=== PATIENT | female | born 1975 | race African-American/Black ===

== ENCOUNTER 2019-08-14 12:24 | Outpatient (CLI) | payer BC, SELFPAY ==
--- NOTE | ~2019-08-14 | MMUS_ITS ---
EXAMINATION: MM diagnostic christal BI w casimiro, US breast BI limited HISTORY: Bilateral nipple discharge TECHNIQUE: Craniocaudal, mediolateral, and mediolateral oblique 3-D tomosynthesis images of the breas ts were performed and synthetic 2-D images were generated. CAD analysis was submitted and interpreted . High resolution limited bilateral breast ultrasound was performed. COMPARISON: 08/19/2014, 08/03/2014 BREAST PARENCHYMAL COMPOSITION: There are scattered areas of fibroglandular density. FINDINGS: MAMMOGRAPHIC FINDINGS: A stable left breast mass has undergone interval biopsy. There is no evidence of suspicious mass, nisreen cification, or architectural distortion in either breast to suggest malignancy. No mammographic maryjo elate is identified for the reported nipple discharge. There has been no suspicious interval change. Scattered benign-appearing calcifications are present. ULTRASOUND: Targeted ultrasound of the subareolar breasts was performed. No sonographic correlate is identified f or the reported nipple discharge. IMPRESSION: 1. No specific mammographic or sonographic correlate is identified for the reported nipple discharge. Further evaluation at this time should be based on clinical assessment. Continued follow-up physical examination is recommended. Consider surgical evaluation. 2. Recommend routine screening mammography in one year. BI-RADS Category 2: Benign finding(s). Reviewed, dictated and finalized at location A. IMPRESSION: 1. No specific mammographic or sonographic correlate is identified for the repo rted nipple discharge. Further evaluation at this time should be based on clini nisreen assessment. Continued follow-up physical examination is recommended. Consid er surgical evaluation. 2. Recommend routine screening mammography in one year. BI-RADS Category 2: Benign finding(s).
--- NOTE | ~2019-08-14 | US_ITS ---
EXAMINATION: US pelvic complete w TV DATE: 08/14/2019 15:52 INDICATION: Irregular menses. Comparison:No prior studies for comparison. TECHNIQUE: Multiple transabdominal and endovaginal sonographic images of the pelvis performed. FINDINGS: The uterus measures 10.5 x 5.1 x 5.1 cm. There is a 4.1 x 4 x 3.3 cm uterine fibroid. The e ndometrial complex measures 7 mm. The ovaries are not visualized. There is no free fluid in the pelvis. There are no abnormal masses seen on either side. IMPRESSION: 1. Enlarged fibroid uterus. Otherwise, unremarkable pelvic ultrasound. Ovaries not visualized. Reviewed, dictated and finalized at location A.
== END 2019-08-14 12:25 | disposition home or self-care (01) ==
PROVIDERS: PCP Internal Medicine; Visit Provider Student in an Organized Health Care Education/Training Program
DX: N64.52 Nipple discharge (principal); N92.1 Excessive and frequent menstruation with irregular cycle; D25.9 Leiomyoma of uterus, unspecified
CPT/HCPCS: 76642; 76830; 76856; 77062; 77066; G0279

== ENCOUNTER 2019-11-06 09:31 | Outpatient (CLI) | payer BC, SELFPAY ==
[2019-11-06 09:55] LABS: Basophils Percent Auto 0.5 % (0.2-1.2); Eosinophils Absolute Auto 0.1 K/mm3 (0-0.3); Eosinophils Percent Auto 1.9 % (0-4.4); Hematocrit 27.7 % (37.0-47.0); Hemoglobin 7.9 g/dL (12.0-15.0); Immature Granulocyte Absolute 0.03 K/mm3 (0.00-0.031); Immature Granulocyte Percent A 0.4 % (0-0.5); Lymphocytes Absolute Auto 2.76 K/mm3 (0.9-3.2); Mean Corpuscular HGB Conc 28.5 g/dl (32-36); Mean Corpuscular Hemoglobin 19.4 pg (26-34); Mean Corpuscular Volume 67.9 fl (80-100); Mean Platelet Volume 9.1 fl (7.4-10.4); Monocytes Absolute Auto 0.6 K/mm3 (0.1-0.6); Monocytes Percent Auto 8.4 % (2.6-8.5); Neutrophils Absolute Auto 3.9 K/mm3 (1.3-6.7); Neutrophils Percent Auto 51.8 % (45.5-73.1); Platelet Count Result 372 k/mm3 (150-375); Red Blood Count 4.08 M/mm3 (4.2-5.4); Red Cell Distribution Width 19.7 % (11.5-14.5); White Blood Count 7.5 K/mm3 (4.5-10.0)
[2019-11-06 10:14] LABS: Anion Gap 6 mmol/L (8-16); Blood Urea Nitrogen 13 mg/dL (7-17); Calcium 10.4 mg/dL (8.4-10.2); Carbon Dioxide 26 mmol/L (22-30); Chloride 105 mmol/L (98-107); Cholesterol 142 mg/dL (0-200); Estimated Glomerular Filt Rate > 60; Glucose 104 mg/dL (65-105); HDL Direct 26 mg/dL; Phosphorus 2.2 mg/dL (2.5-4.5); Potassium 4.2 mmol/L (3.4-5.0); Sodium 137 mmol/L (137-145); Triglycerides 82 mg/dL (<150)
[2019-11-06 10:32] LABS: LDL Cholesterol Direct 96 mg/dL
[2019-11-06 10:38] LABS: Free T4 Free Thyroxine 1.25 ng/mL (0.78-2.19); Vitamin D 25 Hydroxy 16.1 ng/mL
[2019-11-06 10:45] LABS: Thyroid Stimulating Hormone < 0.015 uIU/mL (0.465-4.680)
[2019-11-06 10:46] LABS: Total Triiodothyronine (T3) 2.87 NG/ML (0.97-1.69)
== END 2019-11-06 09:32 | disposition home or self-care (01) ==
PROVIDERS: Internal Medicine Endocrinology, Diabetes & Metabolism; PCP Internal Medicine; Visit Provider Nurse Practitioner
DX: E03.9 Hypothyroidism, unspecified (principal); M81.0 Age-related osteoporosis without current pathological fracture; D64.9 Anemia, unspecified; Z13.220 Encounter for screening for lipoid disorders
CPT/HCPCS: 36415; 80048; 80061; 82306; 83970; 84100; 84436; 84439; 84443; 84480; 85025

== ENCOUNTER 2019-11-11 00:31 | Outpatient (CLI) | payer BC, SELFPAY ==
[2019-11-11 18:19] LABS: SARS-CoV-2 RNA PCR Negative
== END 2019-11-11 00:32 | disposition home or self-care (01) ==
LOC: ANHCOVIDDT 00:31
PROVIDERS: PCP Internal Medicine; Visit Provider Student in an Organized Health Care Education/Training Program
DX: Z01.812 Encounter for preprocedural laboratory examination (principal); Z20.828 Contact with and (suspected) exposure to other viral communicable diseases
CPT/HCPCS: 87635; C9803; U0003

== ENCOUNTER 2019-11-13 01:03 | Day surgery (SDC) | payer BC, SELFPAY ==
[2019-11-02 11:20] VITALS: BMI 54.1
--- NOTE | 2019-11-12 11:37 | WPDANESEPPF ---
Anes - Initial Pre Proc Eval Procedure: Operation Date: 11/13/19 08:30 Proposed Procedures p Hysteroscopy Dilation and Curettage With Possible Myosure - Sophy Up MD Date/Time: 11/12/19 11:37 Surgeon: Sophy Up MD Pre Op Diagnosis: metrorrhagia and endometrial polyp Patient Data Age: 44 Gender: F Height: 1.63 m Weight: 142.88 kg Allergies Allergy/AdvReac Type Severity Reaction Status Date / Time Sulfa (Sulfonamide Allergy Intermediate Rash Verified 11/13/19 06:55 Antibiotics) Home Medications Medication Instructions Recorded Confirmed Type varenicline 0.5 mg (11)-1 mg (42) See Rx Instructions PO PER PKG DIR 10/23/19 11/02/19 Rx tablets in a dose pack #53 each varenicline 1 mg tablet 1 mg PO BID #56 tablet 10/23/19 11/02/19 Rx levothyroxine 150 mcg tablet 150 mcg PO DAILY 30 Days #30 tablet 10/28/19 11/13/19 Rx multivitamin 1 tablet PO DAILY 11/02/19 11/13/19 History Patient hx anesthesia problems: none Family hx anesthesia problems: none PMFSH Past Medical History Medical History (Updated 11/12/19 @ 15:56 by JYO Abbasi-C) Anemia Anxiety Asthma Depression Hidradenitis Hip pain History of HPV (human papilloma virus) infection Hypertriglyceridemia Hypothyroidism Migraines Obesity Osteoporosis TIA (transient ischemic attack) no deficits, 10/11/2019 Surgical History Surgical History H/O section X2 2006, 2009 H/O tubal ligation History of incision and drainage Carbuncle from left armpit 2006 History of right hip replacement 2004 [place] teeth removed Family History Family History Mother , not cause of Blood clot in vein Heart attack Lung cancer Hypertension COPD (chronic obstructive pulmonary disease) Depression Bipolar 1 disorder Grandparent , cause of Colon cancer Malignant neoplasm of prostate Grandparent Heart attack Hypertension Son Family history of attention deficit hyperactivity disorder (ADHD) PTSD (post-traumatic stress disorder) Asthma Daughter Asthma Social History Social History (Updated 11/12/19 @ 15:03 by Debbie Villalobos [facility]) Years smoked: 20 Smoking status: Current every day smoker Tobacco type: cigarettes Second hand tobacco smoke exposure: No Alcohol intake: current Drinks per week: 2 Substance use: former Substance use type: marijuana Other substance usage details: recreational Last use: 05/2019 Gender identity (if verbalized by the patient): Female Spiritual care concerns: No Anes - Eval Final PreProcedure Day of Procedure 11/12/19 11:37 Patient weight: super morbidly obese Heart: regular rate and rhythm Lungs: clear to auscultation and normal air movement Airway: Mallampati scale class II Neurological: alert and oriented Last oral intake: >/= 8 hours ASA classification: III Emergent: no Anesthetic plan: proceed Anesthesia type and monitoring: general GIVS and standard monitoring Informed Consent: The patient's anesthetic plan and its attendant risks and benefits were discussed with the patient/family/POA. Questions were solicited and answers provided to the satisfaction of the patient/family/POA.
--- NOTE | 2019-11-12 12:22 | PM.IMHP ---
H&P: HPI History of Present Illness Date/Time: 11/12/19 12:22 Chief complaint: metrorrhagia and endometrial polyp Narrative: Yolie Wylie is a 44 year old female with history of AUB since 06/2019. Patient reports previous history of regular menses every 28 days. Last normal menstrual period was in June of 2019, beginning around July 08 or . Patient reported persistent irregular spotting since then. EMB was performed in the office on 09/10/19 and showed fragments of benign polyp. Discussion had with patient regarding pathology results and decision was made to proceed with a hysteroscopy/D&C as next step in evaluation and management. Pt is also anemic with Hgb 7.9, which may be partially attributed to irregular bleeding. Patient reports feeling well today without complaints. Review of Systems Review of Systems: All systems reviewed & are unremarkable except as noted in HPI and below Constitutional: Constitutional: Reports as per HPI, Reports no additional constitutional complaints, Denies chills, Denies fever(s), Denies headache(s) and Denies night sweats Eyes: Eyes: Reports as per HPI and Reports no additional eye complaints ENT: Reports system reviewed and no additional complaints, except as documented, Reports as per HPI, Reports Normal hearing present and Denies headache(s) Cardiovascular: Cardiovascular: Reports as per HPI, Reports no additional cardiovascular complaints, Denies chest pain and Denies dyspnea Respiratory: Respiratory: Reports as per HPI, Reports no additional respiratory complaints, Denies cough and Denies dyspnea Gastrointestinal: Gastrointestinal: Reports as per HPI, Reports no additional gastrointestinal complaints, Denies abdominal pain, Denies change in bowel habits, Denies change in stool character, Denies nausea and Denies vomiting Genitourinary: Genitourinary: Reports no additional female genitourinary complaints, Reports as per HPI, Denies abnormal vaginal bleeding, Denies genital lesions, Denies hot flashes, Denies dyspareunia, Denies pelvic pain, Denies sexual dysfunction, Denies urinary incontinence, Denies vaginal discharge, Denies vaginal dryness and Denies vaginal odor Musculoskeletal: Musculoskeletal: Reports no additional musculoskeletal complaints and Reports as per HPI Integumentary/Breasts: Skin/Breast: Reports system reviewed and no additional complaints, except as docu, Reports as per HPI, Denies breast pain and Denies nipple discharge Neurologic: Reports system reviewed and no additional complaints, except as documented, Reports as per HPI, Reports Normal hearing present and Denies headache(s) Psychiatric: Psychiatric: Reports no additional psychiatric complaints, Reports as per HPI, Denies anxiety and Denies depression Endocrine: Endocrine: Reports no additional endocrine complaints and Reports as per HPI Hematologic/Lymphatic: Hematologic/Lymphatic: Reports no additional hematologic/lymphatic complaints and Reports as per HPI Allergic/Immunologic: Allergic/Immunologic: Reports no additional allergic/immunologic complaints and Reports as per HPI [facility] Past Medical History Medical History (Updated 11/12/19 @ 15:56 by Rosa Galvez, [employer]) Anemia Anxiety Asthma Depression Hidradenitis Hip pain History of HPV (human papilloma virus) infection Hypertriglyceridemia Hypothyroidism Migraines Obesity Osteoporosis TIA (transient ischemic attack) no deficits, 10/11/2019 Surgical History Surgical History H/O section X2 2006, 2009 H/O tubal ligation History of incision and drainage Carbuncle from left armpit 2005 History of right hip replacement 2004 [place] teeth removed Family History Family History Mother , not cause of Blood clot in vein Heart attack Lung cancer Hypertension COPD (chronic obstructive pulmonary disease)
--- NOTE | 2019-11-13 07:23 | WPDHPUPDATE1 ---
History and Physical Update Update Date/Time: 11/13/19 07:23 History and Physical has been reviewed, including an updated exam of the patient. There are NO changes in the patient's condition. Risks, benefits, and alternatives have been discussed and questions answered. Patient agrees to proceed with procedure.
[2019-11-13] MEDS: ACETAMINOPHEN 500 MG TABLET 1000 MG PO (07:26)
[2019-11-13] MEDS: LACTATED RINGERS 1,000 ML 30 ML IV CONT (07:47)
[2019-11-13 07:48] VITALS: BP 126/75; PULSE 93; RESP 18; TEMP 36.5; O2SAT 100
--- NOTE | 2019-11-13 09:12 | SUR.OPER ---
3350ml ns in, 3150ml ns out. aware
[2019-11-13 09:25] VITALS: BP 123/63; PULSE 82; RESP 16; O2SAT 93
--- NOTE | 2019-11-13 09:28 | P.OP_ITS ---
Procedure Note - Detailed Date of procedure: 11/13/19 Pre-op diagnosis: metrorrhagia and endometrial polyp Post-op diagnosis: same Procedure performed: Hysteroscopy, dilation and curettage, hysteroscopic myomectomy with MyoSure Description of procedure: The patient was taken to the operating room where she self-transferred to the operating room table. Patient was placed in the dorsal supine position. Anesthesia was administered and found to be adequate. The patient was repositioned in the dorsal lithotomy position with the use of Jeff stirrups. She was prepped and draped in the usual sterile fashion. A red rubber catheter was used to drain the bladder of 200 cc of yellow urine. A bivalve speculum was inserted into the vagina. The cervix was visualized and the anterior lip of the cervix was grasped with a single-tooth tenaculum. A paracervical block with 1% plain lidocaine was performed. 5 cc of lidocaine was administered on either side. The cervix was serially dilated to accommodate a hysteroscope. The hysteroscope was advanced into the endometrial cavity and a general survey was performed. In general, the endometrial cavity grossly appeared normal, however, a submucosal fibroid was visualized along the left po sterior wall of the endometrium. Bilateral tubal ostia were visualized. A few pictures were taken. Decision was made to convert to an operative hysteroscopy with the use of MyoSure to excise the myoma. The regular hysteroscope was replaced with the operative hysteroscope and introduced into the endometrial cavity. The MyoSure device was advanced through the operative hysteroscope. This device was used to excise the majority the myoma. After the majority of the myoma was evacuated, the MyoSure device was removed from the endometrial cavity and the procedure was deemed complete. The hysteroscope was also removed. A rigid size curette was then introduced into the endometrial cavity. All four quadrants of the uterus were explored and a minimal amount of tissue was obtained. All specimen were prepared to be sent to pathology for analysis. The tenaculum was removed. A moderate amount of oozing was noted from the tenaculum puncture sites. The sites were made hemostatic with use of silver nitrate and Monsel's solution. Excellent hemostasis was noted. The vagina was cleansed and dried. The speculum was removed. The remainder of the patient was also cleansed and dried. She was taken out of the dorsal lithotomy position and awakened from anesthesia without difficulty. She was transferred to the recovery room in stable condition. All sponge, lap, instrument counts were correct in the procedure. Anesthesia: MAC Surgeon: Sophy Up MD Estimated blood loss (mL): 10 IV fluids (mL): 900 Urine output (mL): 200 Drains: No Packing: No Pathology: yes (endometrial shavings, endometrial curettings) Complications: No immediate complications Condition: stable Disposition: PACU Findings: Intraoperative findings: submucosal fibroid visualized along the left posterior wall of the endometrial cavity, rest of cavity appeared grossly normal, bilateral tubal ostia visualized Hysteroscopic fluids: 3350cc in/3150cc out
[2019-11-13 09:55] VITALS: BP 138/67; PULSE 79; RESP 16
[2019-11-13 10:25] VITALS: BP 123/67; PULSE 80; RESP 16
[2019-11-13 10:50] VITALS: BP 131/80; PULSE 73; RESP 16
== END 2019-11-13 11:00 | disposition home or self-care (01) ==
PROVIDERS: PCP Internal Medicine; Visit Provider Student in an Organized Health Care Education/Training Program
PROC: 0U5B8ZZ Destruction of Endometrium, Via Natural or Artificial Opening Endoscopic (ICD-10-PCS; CPT 58563; principal; 2019-11-13 08:30)
DX: D25.0 Submucous leiomyoma of uterus (principal); E03.9 Hypothyroidism, unspecified; E66.01 Morbid (severe) obesity due to excess calories; Z68.43 Body mass index [BMI] 50.0-59.9, adult; Z86.73 Personal history of transient ischemic attack (TIA), and cerebral infarction without residual deficits; F17.210 Nicotine dependence, cigarettes, uncomplicated
CPT/HCPCS: 58561; 36415; 86850; 86900; 86901; 88305; A9270; J2250; J2704; J3010; J7120

== ENCOUNTER → 2019-12-08 15:08 | Outpatient (CLI) | payer BC, SELFPAY ==
--- NOTE | ~2019-12-08 | XR_ITS ---
EXAMINATION: XR hip RT min 2V DATE: 12/08/2019 15:30 INDICATION: Right hip pain TECHNIQUE: Two views of right hip were obtained. COMPARISON: None. FINDINGS: Orthopedic hardware is present in the right acetabulum stabilizing a healed fracture. There is advanced osteoarthritis of the right hip. No acute fracture is identified. The soft tissues are u nremarkable. IMPRESSION: 1. Advanced right hip osteoarthritis. 2. Healed right acetabular fracture with internal fixation. Reviewed, dictated and finalized at location A.
== END ==
PROVIDERS: PCP Internal Medicine; Visit Provider Clinical Nurse Specialist
DX: M16.11 Unilateral primary osteoarthritis, right hip (principal)
CPT/HCPCS: 73502

== ENCOUNTER 2020-05-06 14:37 | Outpatient (CLI) | payer BC, SELFPAY ==
--- NOTE | ~2020-05-06 | US_ITS ---
EXAMINATION: US pelvic complete w TV EXAM DATE: 05/06/2020 15:45 INDICATION: Z30.431 - Encounter for routine checking of intrauterine contraceptive device. TECHNIQUE: Pelvic transabdominal and transvaginal sonogram was performed. There are multiple graysca le and Doppler images available for interpretation. Comparison is made to prior examination from 08/12. FINDINGS: Uterus measures 11.5 x 5.1 x 6.6 cm, with IUD identified in the lower uterine segment and cervical canal. Previously suspected fibroid is not well-visualized on this exam. Endometrial stripe measures 20 mm, mildly thickened. There is no free pelvic fluid. Right adnexa: The ovary is not identified. There is no adnexal mass. Left adnexa: The left ovary is normal in size and morphology. IMPRESSION: 1. Abnormally positioned IUD, in the lower uterine segment and cervical canal. 2. Endometrial thickening. Consider 6 week follow-up pelvic sonogram. Reviewed, dictated and finalized at location A. [facility]
== END 2020-05-06 14:38 | disposition home or self-care (01) ==
PROVIDERS: PCP Internal Medicine; Visit Provider Obstetrics & Gynecology
DX: Z30.431 Encounter for routine checking of intrauterine contraceptive device (principal); N92.0 Excessive and frequent menstruation with regular cycle; T83.89XA Other specified complication of genitourinary prosthetic devices, implants and grafts, initial encounter
CPT/HCPCS: 76830; 76856

== ENCOUNTER → 2020-05-24 02:42 | Outpatient (CLI) | payer BC, SELFPAY ==
[2020-05-24 22:47] LABS: SARS-CoV-2 RNA PCR Negative
== END ==
PROVIDERS: PCP Internal Medicine; Visit Provider Student in an Organized Health Care Education/Training Program
DX: Z01.812 Encounter for preprocedural laboratory examination (principal); Z20.822 Contact with and (suspected) exposure to COVID-19
CPT/HCPCS: C9803; U0003; U0005

== ENCOUNTER 2020-05-27 00:55 | Day surgery (SDC) | payer BC, SELFPAY ==
[2020-05-19 15:40] VITALS: BMI 53.3
--- NOTE | 2020-05-26 15:32 | WPDANESEPPF ---
Anes - Initial Pre Proc Eval Procedure: Operation Date: 05/27/20 10:00 Proposed Procedures p Hysteroscopy Dilation and Curettage Zoie Ablation, Possible Myosure, Intrauterine Device Removal - Sophy Up MD Date/Time: 05/26/20 15:32 Surgeon: Sophy Up MD Pre Op Diagnosis: Abd uterine Bleeding, misplaced IUD Patient Data Age: 44 Gender: F Height: 1.63 m Weight: 141 kg Allergies Allergy/AdvReac Type Severity Reaction Status Date / Time Sulfa (Sulfonamide Allergy Intermediate Hives Verified 05/27/20 08:26 Antibiotics) Home Medications Medication Instructions Recorded Confirmed Type multivitamin 1 tablet PO DAILY 11/02/19 05/27/20 History levothyroxine 150 mcg tablet 150 mcg PO DAILY 90 Days #90 tablet 02/25/20 05/27/20 Rx sertraline 100 mg tablet 100 mg PO DAILY #90 tablet 04/11/20 05/27/20 Rx Patient hx anesthesia problems: none Family hx anesthesia problems: none PMFSH Past Medical History Medical History Anemia Anxiety Asthma Depression Hidradenitis Hip pain History of HPV (human papilloma virus) infection Hypertriglyceridemia Hypothyroidism Migraines Morbid obesity with BMI of 50.0-59.9, adult Obesity Osteoporosis Smoker Surgical History Surgical History H/O section X2 2006, 2009 H/O dilation and curettage H/O tubal ligation History of incision and drainage Carbuncle from left armpit 2006 History of right hip replacement 2003 [place] teeth removed Family History Family History Mother , not cause of Blood clot in vein Heart attack Lung cancer Hypertension COPD (chronic obstructive pulmonary disease) Depression Bipolar 1 disorder Grandparent , cause of Colon cancer Malignant neoplasm of prostate Grandparent Heart attack Hypertension Son Family history of attention deficit hyperactivity disorder (ADHD) PTSD (post-traumatic stress disorder) Asthma Daughter Asthma Social History Social History Years smoked: 20 Smoking status: Current every day smoker Tobacco type: cigarettes Second hand tobacco smoke exposure: No Alcohol intake: current Drinks per week: 1 Substance use: current Substance use type: marijuana Other substance usage details: recreational Gender identity (if verbalized by the patient): Female Spiritual care concerns: No Anes - Eval Final PreProcedure Day of Procedure 05/26/20 15:32 Patient weight: obese Heart: regular rate and rhythm Lungs: clear to auscultation and normal air movement Airway: Mallampati scale class II Neurological: alert and oriented Last oral intake: >/= 8 hours ASA classification: III Emergent: no Anesthetic plan: proceed Anesthesia type and monitoring: general LMA and ETT Informed Consent: The patient's anesthetic plan and its attendant risks and benefits were discussed with the patient/family/POA. Questions were solicited and answers provided to the satisfaction of the patient/family/POA.
--- NOTE | 2020-05-26 17:03 | PM.IMHP ---
H&P: HPI History of Present Illness Date/Time: 05/26/20 17:03 Patient initially presented to gynecology office in 01/2019 with complaints of irregular menses. A pelvic ultrasound was obtained showing a slightly enlarged uterus measuring 10.5 x 5.1 x 5.1 cm and an EMB was performed showing an endometrial polyp and chronic endometritis. Based on persistent AUB and symptoms, a hysteroscopy/D&C was performed with the hopes of alleviating symptoms. Patient's menstrual cycles following the procedure were initially manager fire, however, progressively became heavy again and patient experienced persistent bleeding, almost daily. Patient has significant co-morbidities and was referred to [facility] in 02/2020 for possible hysterectomy. Patient was not deemed to be an optimal surgical candidate at [facility] and an IUD trial was recommended. Patient had a Mirena IUD inserted in 03/2020. Since IUD insertion, reported persistent heavy bleeding, although it has since slowed down. An ultrasound was performed to confirm proper placement of the IUD and showed the IUD improperly located in lower uterine segment and cervical canal. Due to mobility issues as well as body habitus, patient experiences significant discomfort with in-office speculum exams and decision was made proceed with removal of IUD and perform an endometrial ablation in the OR. In general, patient reports feeling well today without complaints. Chief Complaint: Abnormal uterine bleeding Malpositioned IUD Review of Systems Review of Systems: All systems reviewed & are unremarkable except as noted in HPI and below Constitutional: Constitutional: Reports as per HPI, Reports no additional constitutional complaints, Denies chills, Denies fever(s), Denies headache(s) and Denies night sweats Eyes: Eyes: Reports as per HPI and Reports no additional eye complaints ENT: Reports system reviewed and no additional complaints, except as documented, Reports as per HPI, Reports Normal hearing present and Denies headache(s) Cardiovascular: Cardiovascular: Reports as per HPI, Reports no additional cardiovascular complaints, Denies chest pain and Denies dyspnea Respiratory: Respiratory: Reports as per HPI, Reports no additional respiratory complaints, Denies cough and Denies dyspnea Gastrointestinal: Gastrointestinal: Reports as per HPI, Reports no additional gastrointestinal complaints, Denies abdominal pain, Denies change in bowel habits, Denies change in stool character, Denies nausea and Denies vomiting Genitourinary: Genitourinary: Reports no additional female genitourinary complaints, Reports as per HPI, Reports abnormal vaginal bleeding, Denies genital lesions, Denies hot flashes, Denies dyspareunia, Denies pelvic pain, Denies sexual dysfunction, Denies urinary incontinence, Denies vaginal discharge, Denies vaginal dryness and Denies vaginal odor Musculoskeletal: Musculoskeletal: Reports no additional musculoskeletal complaints and Reports as per HPI Integumentary/Breasts: Skin/Breast: Reports system reviewed and no additional complaints, except as docu, Reports as per HPI, Denies breast pain and Denies nipple discharge Neurologic: Reports system reviewed and no additional complaints, except as documented, Reports as per HPI, Reports Normal hearing present and Denies headache(s) Psychiatric: Psychiatric: Reports no additional psychiatric complaints, Reports as per HPI, Denies anxiety and Denies depression Endocrine: Endocrine: Reports no additional endocrine complaints and Reports as per HPI Hematologic/Lymphatic: Hematologic/Lymphatic: Reports no additional hematologic/lymphatic complaints and Reports as per HPI Allergic/Immunologic: Allergic/Immunologic: Reports no additional allergic/immunologic complaints and Reports as per HPI PMFSH Past Medical History Medical History Anemia Anxiety Asthma Depression Hidradenitis Hip pain History of HPV (human papilloma virus) infection Hypertriglyceridemia Hypothyroidism Mi
[2020-05-27] VITALS (17 sets, daily range): BP systolic 115–150; BP diastolic 53–92; PULSE 64–86; RESP 12–21; TEMP 36.2–36.4; O2SAT 96–100
[2020-05-27] MEDS: LACTATED RINGERS 1,000 ML 30 ML IV CONT ×3 (08:37→16:15)
[2020-05-27] MEDS: ACETAMINOPHEN 500 MG TABLET 1000 MG PO (08:39)
--- NOTE | 2020-05-27 09:19 | WPDHPUPDATE1 ---
History and Physical Update Update Date/Time: 05/27/20 09:19 History and Physical has been reviewed, including an updated exam of the patient. There are NO changes in the patient's condition. Risks, benefits, and alternatives have been discussed and questions answered. Patient agrees to proceed with procedure.
--- NOTE | 2020-05-27 11:11 | PM.PROC ---
Procedure Note - Detailed Date of procedure: 05/27/20 Pre-op diagnosis: Abd uterine Bleeding, misplaced IUD Post-op diagnosis: same Procedure performed: Removal of IUD, hysteroscopy, dilation and curettage, myomectomy with MyoSure, endometrial ablation with Zoie Description of procedure: The patient was taken to the operating room where she self transferred to the operating room table. Patient was placed in dorsal supine position. Anesthesia was administered and found to be adequate. Patient was repositioned in dorsal lithotomy position with the use of Jeff stirrups. She was prepped and draped in the usual sterile fashion. A red rubber catheter was used to drain the bladder of 125 cc of urine. A bivalve speculum was inserted in the vagina. The cervix was well visualized. A small portion of the stem of the IUD was visualized protruding through the cervical os. The IUD strings were grasped with ring forceps and the IUD was easily removed intact. The IUD was discarded. The anterior lip of the cervix was grasped with a single-tooth tenaculum. A paracervical block was performed with 1% plain lidocaine. 5 cc of lidocaine was administered on both sides for a total of 10 cc. The cervix was serially dilated to accommodate a hysteroscope. The hysteroscope was advanced into the endometrial cavity. A general survey was performed. A few small endometrial polyps were visualized along both the left and right sides of the endometrial cavity. At the fundus, a large submucosal fibroid was noted with the majority of the myoma within the endometrial cavity. The right tubal ostia was visualized. The left tubal ostia was not seen. The hysteroscope was removed. A medium-size rigid curette was introduced and all quadrants of the endometrial cavity were explored. A scant amount of tissue was obtained along with the polyps that were visualized. The tissue was prepared to be sent to pathology. The myoma was unable to be dislodged with the curette. An attempt was made to grasp the myoma with forceps, however, due to the large size, was unsuccessful. The hysteroscope was reintroduced into the endometrial cavity. With the large myoma still visualized, decision was made to convert to an operative hysteroscope. The operative hysteroscope was advanced into the endometrial cavity. The MyoSure device was advanced through the operative hysteroscope and activated. The MyoSure device was used to evacuate as much of the myoma as possible. Due to technical difficulties, which included the MyoSure device and the console spontaneously turning off for a total of three times during the procedure and requiring a restart, only approx. 60-70% of myoma was able to be excised and evacuated. The operative hysteroscope was removed. The Zoie endometrial ablation hand-held device was opened on the operative field. This device was connected to the console and the console was powered on. After proper settings were adjusted, the array was introduced into the endometrial cavity and deployed. The cervical balloon was insufflated. An integrity check was performed and successfully passed. The ablation procedure automatically began and ran for the preset time of 120 seconds. After the procedure was completed, the cervical balloon was desufflated and the array was collapsed and removed. The procedure was deemed complete. The tenaculum was removed from the anterior lip of the cervix. Pinpoint areas of bleeding from the tenaculum puncture sites were noted. These areas were made hemostatic with silver nitrate. Excellent hemostasis was noted. The vagina was cleansed and dried and the speculum was removed. The remainder of the patient was cleansed and dried. She was taken out of the dorsal lithotomy position and awakened from anesthesia without difficulty. She was transported to the recovery room in stable condition. All sponge, lap, and instrument counts were correct at the end of the procedure. The patient tolerated the procedur
[2020-05-27] MEDS: HYDROmorphone HCL INJ (*CRX) 1 MG/ML SYR 0.25 MG IV PUSH ×2 (11:24→11:29)
[2020-05-27] MEDS: fentaNYL CITRATE INJ (*CRX) 100 MCG/2 ML VIAL 25 MCG IV PUSH ×7 (11:32→13:00)
[2020-05-27] MEDS: diphenhydrAMINE HCl INJ 50 MG/ML VIAL 25 MG IV PUSH ×2 (12:48→15:45)
[2020-05-27] MEDS: oxyCODONE HCL (*CRX) 5 MG TAB IR PO (14:00)
--- NOTE | 2020-05-27 14:58 | SUR.PHASEII ---
1450; CALLED DR MARROQUIN. PT STILL C/O PELVIC PAIN 09/24. ABDOMEN SOFT, SM-MOD AMT VAG FLOW. TORADOL 30MG IV X1 DOSE ORDERED.
[2020-05-27] MEDS: KETOROLAC 30 MG/ML VIAL (*BKC) IV PUSH (15:07)
--- NOTE | 2020-05-27 15:28 | SUR.PHASEII ---
1525; PT AWAKE AND ALERT. DENIES NAUSEA. USING CELLPHONE. PT STATES SHE IS ITCHY AGAIN. ASKING FOR MORE BENADRYL. STATES PELVIC PAIN REMAINS 09/24. ABDOMEN SOFT, SM-MOD AMT VAG FLOW. CALLED DR ALBERT. BENADRYL 25MG IV ORDERED. (2ND DOSE)
--- NOTE | 2020-05-27 17:39 | SUR.PHASEII ---
1350; PT AWAKE AND ALERT. STATES PELVIC PAIN 7/10. ABDOMEN SOFT. SM-MOD AMT VAG FLOW, PINK/DARK RED. FLUID MIXED WITH BLOOD. 1400; PT GIVEN OXYCODONE FOR PAIN. PT SOMEWHAT ANXIOUS. SHAKING LEGS. 1450; PT STATES NO CHANGE IN PAIN. ASSESSMENT UNCHANGED. 1500; CALLED DR MARROQUIN, UPDATED ON WHAT PAIN MEDICATIONS PT HAS HAD DURING PACU/OP. STILL C/O PAIN 7/10. SHE ORDERED TORADOL 30MG IV X1 1530; PT C/O PAIN AT 7/10 AND UNCHANGED. PT REMAINS ANXIOUS, SHAKING LEGS. PT STATES ITCHING HAS RETURNED. PT USING CELL PHONE. 1540; CALLED DR ALBERT. DISCUSSED ITCHING AND CURRENT PAIN MEDS. BENADRYL 25 MG IV ORDERED. 1550; DR MARROQUIN HERE. IN ROOM SPEAKING TO PT. IV TYLENOL ORDERED. 1613; IV TYLENOL GIVEN OVER 15 MIN. PT STATES PAIN REMAINS 7/10. ASSESSMENT UNCHANGED. 1635; PT AWAKE AND ALERT. STATES PAIN MUCH BETTER NOW AT 4/10. NO LONGER ITCHING. PT USING CELL PHONE. PT CALM. PT STATES SHE IS READY TO GO HOME.
== END 2020-05-27 16:45 | disposition home or self-care (01) ==
PROVIDERS: PCP Internal Medicine; Visit Provider Student in an Organized Health Care Education/Training Program
PROC: 0U5B8ZZ Destruction of Endometrium, Via Natural or Artificial Opening Endoscopic (ICD-10-PCS; CPT 58563; principal; 2020-05-27 10:00)
DX: N93.9 Abnormal uterine and vaginal bleeding, unspecified (principal); D25.0 Submucous leiomyoma of uterus; N84.0 Polyp of corpus uteri; T83.32XA Displacement of intrauterine contraceptive device, initial encounter; Y84.8 Other medical procedures as the cause of abnormal reaction of the patient, or of later complication, without mention of misadventure at the time of the procedure; E03.9 Hypothyroidism, unspecified; F41.8 Other specified anxiety disorders; A63.0 Anogenital (venereal) warts; E66.01 Morbid (severe) obesity due to excess calories; Z68.42 Body mass index [BMI] 45.0-49.9, adult; F17.210 Nicotine dependence, cigarettes, uncomplicated; F12.90 Cannabis use, unspecified, uncomplicated
CPT/HCPCS: 58563; 58301; 58561; 88305; A9270; C9803; J0131; J1100; J1170; J1200; J1885; J2250; J2704; J3010; J7030; J7120; U0003; U0005

== ENCOUNTER 2020-09-21 10:44 | Emergency (ER) | payer BC, SELFPAY ==
[2020-09-21] VITALS (10 sets, daily range): BP systolic 123–138; BP diastolic 56–74; PULSE 71–84; RESP 16–22; O2SAT 98–100
--- NOTE | ~2020-09-21 | CT_ITS ---
EXAMINATION: CT abdomen pelvis w con DATE: 09/21/2020 13:57 INDICATION: Right lower quadrant abdominal pain. TECHNIQUE: Computed tomography (CT) of the abdomen and pelvis was performed with 100 mL Omnipaque 350 intravenous contrast. Automated exposure control and iterative reconstruction technique were employe d. The dose-length product was 1527.02 mGy-cm. COMPARISON: None. FINDINGS: The visualized portions of the lung bases demonstrate mild atelectasis. No pleural effusion . The heart size is normal. No pericardial effusion. The liver, gallbladder, spleen, pancreas, adrena l glands, and kidneys are normal. There are no dilated loops of bowel. The appendix is normal. There are no pathologically enlarged lymph nodes. There is no free intraperitoneal fluid. There is an old h ealed fracture of right acetabulum with fixation with plates and screws. One of the screws indents th e bladder. There is advanced right hip osteoarthritis. There is mild left hip osteoarthritis. There i s mild osteoarthritis of right sacroiliac joint and severe osteoarthritis of left sacroiliac joint. IMPRESSION: 1. Advanced posttraumatic right hip osteoarthritis. Reviewed, dictated and finalized at location A.
[2020-09-21 11:34] LABS: Basophils Absolute Auto 0.1 K/mm3 (0.0-0.1); Basophils Percent Auto 0.8 % (0.2-1.2); Hematocrit 31.5 % (37.0-47.0); Hemoglobin 9.2 g/dL (12.0-15.0); Immature Granulocyte Absolute 0.02 K/mm3 (0.00-0.031); Immature Granulocyte Percent A 0.3 % (0-0.5); Lymphocytes Absolute Auto 2.57 K/mm3 (0.9-3.2); Lymphocytes Percent Auto 36.3 % (18.3-44.2); Mean Corpuscular HGB Conc 29.2 g/dl (32-36); Mean Corpuscular Hemoglobin 22.3 pg (26-34); Mean Corpuscular Volume 76.3 fl (80-100); Mean Platelet Volume 9.3 fl (7.4-10.4); Monocytes Absolute Auto 0.7 K/mm3 (0.1-0.6); Neutrophils Absolute Auto 3.7 K/mm3 (1.3-6.7); Neutrophils Percent Auto 52.6 % (45.5-73.1); Platelet Count Result 273 k/mm3 (150-375); Red Blood Count 4.13 M/mm3 (4.2-5.4); Red Cell Distribution Width 20.1 % (11.5-14.5); White Blood Count 7.1 K/mm3 (4.5-10.0)
[2020-09-21 11:45] LABS: Alanine Aminotransferase 14 U/L (4-35); Albumin Level 4.2 g/dL (3.5-5.1); Alkaline Phosphatase 111 U/L (38-126); Anion Gap 8 mmol/L (8-16); Aspartate Amino Transferase 21 U/L (14-36); Bilirubin,Total 0.3 mg/dL (0.2-1.3); Blood Urea Nitrogen 11 mg/dL (7-17); Calcium 11.1 mg/dL (8.4-10.2); Carbon Dioxide 23 mmol/L (22-30); Chloride 105 mmol/L (98-107); Estimated CRCL calculation 125 ml/min; Estimated Glomerular Filt Rate > 60; Glucose 110 mg/dL (65-105); Potassium 4.4 mmol/L (3.4-5.0); Sodium 136 mmol/L (137-145)
[2020-09-21 11:57] LABS: Hypochromasia 1+ (NORMAL); Platelet Estimate Adequate (Adequate); Stomatocytes 1+ (NORMAL)
[2020-09-21 11:58] LABS: Anisocytosis 1+ (NORMAL)
[2020-09-21 12:02] LABS: Prothrombin Time 13.4 Seconds (11.1-14.7)
--- NOTE | 2020-09-21 13:21 | ED.ABDPAIN ---
HPI - Abdominal Pain General Chief Complaint: GI Bleed Stated Complaint: severe abd pain, GI bleed Time Seen by Provider: 09/21/20 12:23 History of Present Illness HPI narrative: Patient is a 45-year-old female who presents ER with abdominal pain rectal bleeding. Admitted last week at [facility] for rectal bleeding and was told she had a dilated appendix. She stayed overnight and they told her it was okay to go home. There is no surgery in regards to her appendix. She been doing well until today when she had a follow-up appointment with her PCP and had begun having rectal bleeding this morning. She reports that pain is recurred and is in the lower abdomen. No radiation. No aggravating or alleviating factors. Patient did has loose stools. Blood in her stool was streaky and red and it was not clots. Related Data Allergies Allergy/AdvReac Type Severity Reaction Status Date / Time Sulfa (Sulfonamide Allergy Intermediate Hives Verified 06/30/20 15:39 Antibiotics) Review of Systems Review of Systems: All systems reviewed & are unremarkable except as noted in HPI and below Constitutional: Constitutional: Denies chills, Denies fever(s) and Denies weakness ENT: Denies nasal congestion and Denies sore throat Gastrointestinal: Gastrointestinal: Reports abdominal pain, Reports diarrhea, Denies nausea and Denies vomiting Comments: Blood in stool Genitourinary: Genitourinary: Denies nocturia, Denies dysuria and Denies urinary incontinence [facility] Past Medical History Medical History Anemia Anxiety Asthma Depression Hidradenitis Hip pain History of HPV (human papilloma virus) infection Hypertriglyceridemia Hypothyroidism Migraines Morbid obesity with BMI of 50.0-59.9, adult Obesity Osteoporosis Smoker Surgical History Surgical History H/O section X2 2006, 2009 H/O dilation and curettage H/O tubal ligation History of incision and drainage Carbuncle from left armpit 2005 History of right hip replacement 2004 [place] teeth removed Family History Family History Mother , not cause of Blood clot in vein Heart attack Lung cancer Hypertension COPD (chronic obstructive pulmonary disease) Depression Bipolar 1 disorder Grandparent , cause of Colon cancer Malignant neoplasm of prostate Grandparent Heart attack Hypertension Son Family history of attention deficit hyperactivity disorder (ADHD) PTSD (post-traumatic stress disorder) Asthma Daughter Asthma Social History Social History (Updated 06/30/20 @ 15:39 by Maida Ramirez) Years smoked: 21 Smoking status: Current every day smoker Tobacco type: cigarettes Second hand tobacco smoke exposure: No Alcohol intake: current Drinks per week: 1 Alcohol use details: occasional Substance use: current Substance use type: marijuana Other substance usage details: recreational Gender identity (if verbalized by the patient): Female Spiritual care concerns: No Exam Narrative: Exam Narrative: GENERAL: Well-appearing, morbidly obese, and in no acute distress. HEAD: Normocephalic, atraumatic. ENT: Mucous membranes moist. CHEST: Clear to auscultation. No respiratory distress. HEART: Regular rate and rhythm. Normal peripheral pulses. ABDOMEN: Soft, nontender, nondistended. Normal-appearing rectum, no fissures or hemorrhoids. No gross blood on IMMANUEL. Heme-negative stool. EXTREMITIES: Normal range of motion. No edema. SKIN: Warm, dry, no rash. NEURO: Alert and oriented x3. PSYCH: Normal mood and affect. Course Course Emergency Course: Patient reports chronic anemia. Recommend follow-up with PCP and GI. Discharge home. Bentyl for abdominal cramping. Vital Signs Vital signs: Vital Signs Pulse Rate 78 09/21/20 10:55 Respiratory Rate
[2020-09-21] MEDS: MORPHINE SULFATE (*CRX) 4 MG/ML INJ IV PUSH (13:33)
--- NOTE | 2020-09-21 13:52 | PC.NURSE ---
Patient to radiology.
== END 2020-09-21 15:29 | disposition home or self-care (01) ==
PROVIDERS: Emergency Provider Emergency Medicine; PCP Internal Medicine
DX: R10.9 Unspecified abdominal pain (principal); F41.9 Anxiety disorder, unspecified; F32.9 Major depressive disorder, single episode, unspecified; E03.9 Hypothyroidism, unspecified; E66.01 Morbid (severe) obesity due to excess calories; Z68.43 Body mass index [BMI] 50.0-59.9, adult; M81.0 Age-related osteoporosis without current pathological fracture; Z96.641 Presence of right artificial hip joint; F17.210 Nicotine dependence, cigarettes, uncomplicated; M16.11 Unilateral primary osteoarthritis, right hip
CPT/HCPCS: 36415; 74177; 80053; 85025; 85610; 85730; 86850; 86900; 86901; 96374; 99284; J2270; Q9967

== ENCOUNTER → 2020-10-21 08:48 | Outpatient (CLI) | payer BC, SELFPAY ==
[2020-10-22 00:16] LABS: SARS-CoV-2 RNA PCR Negative
== END ==
PROVIDERS: PCP Internal Medicine; Visit Provider Nurse Practitioner
DX: J02.9 Acute pharyngitis, unspecified (principal); Z20.822 Contact with and (suspected) exposure to COVID-19
CPT/HCPCS: C9803; U0003; U0005

== ENCOUNTER 2021-08-17 10:03 | Outpatient (CLI) | payer BC, SELFPAY ==
[2021-08-17 13:15] LABS: Anion Gap 3 mmol/L (8-16); Blood Urea Nitrogen 14 mg/dL (7-17); Calcium 9.9 mg/dL (8.4-10.2); Carbon Dioxide 24 mmol/L (22-30); Chloride 109 mmol/L (98-107); Estimated Glomerular Filt Rate > 60; Glucose 94 mg/dL (65-110); Phosphorus 2.2 mg/dL (2.5-4.5); Potassium 4.5 mmol/L (3.4-5.0); Sodium 136 mmol/L (137-145)
[2021-08-17 13:28] LABS: Parathyroid Intact 176.3 pg/mL (7.5-53.5)
[2021-08-17 13:34] LABS: Free T4 Free Thyroxine 1.36 ng/mL (0.78-2.19); Vitamin D 25 Hydroxy 15.3 ng/mL
== END 2021-08-17 10:04 | disposition home or self-care (01) ==
PROVIDERS: PCP Internal Medicine; Visit Provider Internal Medicine Endocrinology, Diabetes & Metabolism
DX: M81.0 Age-related osteoporosis without current pathological fracture (principal); E03.9 Hypothyroidism, unspecified; E55.9 Vitamin D deficiency, unspecified; R79.89 Other specified abnormal findings of blood chemistry
CPT/HCPCS: 36415; 80069; 82306; 83970; 84439; 84443

== ENCOUNTER 2021-08-22 07:10 | Outpatient (RCR) | payer BC, SELFPAY | END 2021-11-14 10:36 | disposition home or self-care (01) | LOC: ANHDMC 07:10 | PROVIDERS: PCP Internal Medicine; Visit Provider Clinical Nurse Specialist | DX: E66.9 Obesity, unspecified (principal) | CPT/HCPCS: 99199 ==

== ENCOUNTER 2021-11-15 09:40 | Outpatient (CLI) | payer BC, SELFPAY ==
[2021-11-15 10:45] LABS: Alanine Aminotransferase 15 U/L (6-35); Aspartate Amino Transferase 21 U/L (14-36)
[2021-11-15 10:45] LABS: Albumin Level 3.9 g/dL (3.5-5.1); Anion Gap 1 mmol/L (8-16); Blood Urea Nitrogen 14 mg/dL (7-17); Calcium 10.3 mg/dL (8.4-10.2); Carbon Dioxide 29 mmol/L (22-30); Chloride 104 mmol/L (98-107); Estimated Glomerular Filt Rate > 60; Glucose 94 mg/dL (65-110); Phosphorus 2.3 mg/dL (2.5-4.5); Potassium 3.9 mmol/L (3.4-5.0); Sodium 134 mmol/L (137-145)
[2021-11-15 10:56] LABS: Parathyroid Intact 187.9 pg/mL (7.5-53.5)
[2021-11-15 11:10] LABS: Free T4 Free Thyroxine 2.02 ng/mL (0.78-2.19); Vitamin D 25 Hydroxy 27.8 ng/mL
[2021-11-15 11:15] LABS: Thyroid Stimulating Hormone 0.337 uIU/mL (0.465-4.680)
== END 2021-11-15 09:41 | disposition home or self-care (01) ==
PROVIDERS: PCP Internal Medicine; Referring Provider Podiatrist Foot & Ankle Surgery; Visit Provider Internal Medicine Endocrinology, Diabetes & Metabolism
DX: E21.3 Hyperparathyroidism, unspecified (principal); E55.9 Vitamin D deficiency, unspecified; E03.9 Hypothyroidism, unspecified; M81.0 Age-related osteoporosis without current pathological fracture; B35.1 Tinea unguium
CPT/HCPCS: 36415; 80069; 82306; 83970; 84439; 84443; 84450; 84460

== ENCOUNTER 2021-11-21 18:51 | Emergency (ER) | payer BC, SELFPAY ==
[2021-11-21 20:07] VITALS: BP 136/77; PULSE 84; RESP 16; TEMP 36.4; O2SAT 100
--- NOTE | 2021-11-21 20:19 | ED.URI ---
HPI - URI/Sore Throat General Chief Complaint: Upper Respiratory Infection Stated Complaint: sore throat/ear pain Time Seen by Provider: 11/21/21 20:19 Source: patient and RN notes reviewed Mode of arrival: ambulatory Limitations: no limitations History of Present Illness HPI Narrative: 46 y/o female presented for c/o sore throat and bilateral ear pain for 4 days. Endorses occasional nonproductive cough. 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 Denies sob, wheezing, vomiting or fever. Not taking anything for symptoms. MD elicited complaint: cough Related Data Allergies Allergy/AdvReac Type Severity Reaction Status Date / Time Sulfa (Sulfonamide Allergy Intermediate Hives Verified 11/21/21 20:03 Antibiotics) Review of Systems Review of Systems: CONSTITUTIONAL: Endorses malaise,denies chills, sweats, fever EYES: Denies visual changes, redness, or discharge ENT: Reports rhinorrhea, congestion, sore throat CARDIOVASCULAR: Denies chest pain, palpitations, edema RESPIRATORY: Reports cough, post nasal drainage. Denies dyspnea GASTROINTESTINAL: Denies abdominal pain, nausea, vomiting, diarrhea SKIN: Denies rash or itching MUSCULOSKELETAL: Endorses myalgia PMFSH Past Medical History Medical History Anemia Anxiety Asthma COVID-19 Depression Hidradenitis Hip pain History of HPV (human papilloma virus) infection Hypertriglyceridemia Hypothyroidism Migraines Morbid obesity with BMI of 50.0-59.9, adult Obesity Osteoporosis Smoker Surgical History Surgical History H/O section X2 2006, 2009 H/O dilation and curettage H/O tubal ligation H/O: hysterectomy History of incision and drainage Carbuncle from left armpit 2006 History of right hip replacement 2004 [place] teeth removed Family History Family History Mother , not cause of Blood clot in vein Heart attack Lung cancer Hypertension COPD (chronic obstructive pulmonary disease) Depression Bipolar 1 disorder Grandparent , cause of Colon cancer Malignant neoplasm of prostate Grandparent Heart attack Hypertension Son Family history of attention deficit hyperactivity disorder (ADHD) PTSD (post-traumatic stress disorder) Asthma Daughter Asthma Social History Social History Years smoked: 21 Smoking status: Current every day smoker Tobacco type: cigarettes Second hand tobacco smoke exposure: No Alcohol intake: current Drinks per week: 1 Alcohol use details: occasional Substance use: current Substance use type: marijuana Other substance usage details: recreational Gender identity (if verbalized by the patient): Female Spiritual care concerns: No Exam Narrative: GENERAL: Ill-appearing, nontoxic EYES: conjunctivae clear ENT: Mucous membranes moist. TMs pearly carey with dull light reflex bilaterally; no tragal tenderness. Oropharynx erythematous without lesions or exudate, no drooling, no hoarseness, no trismus, uvula midline. CHEST: Clear to auscultation, breath sounds equal. HEART: Regular rate and rhythm. No murmur heard. SKIN: Warm, dry, no rash. NEURO: Alert and oriented x3. PSYCH: Normal mood and affect Course Course Emergency Course: Patient is aware of diagnosis, understands and agrees to treatment plan. Anticipatory guidance given. Patient agrees to follow-up as directed and is aware of reasons to seek care at the emergency department. Portions of this record may have been created with voice recognition software Level of Care: Express Care Visit Vital Signs Vital signs: Vital Signs Temperature 97.6 F 11/21/21 20:07 Pulse Rate 84 11/21/21 20:07 Respiratory Rate 16 11/21/21 20:07 Blood Pressure 136/77 11/21/21 20:07 Pulse Oximetry
== END 2021-11-21 21:12 | disposition home or self-care (01) ==
PROVIDERS: Emergency Provider Nurse Practitioner Family; PCP Internal Medicine
DX: J06.9 Acute upper respiratory infection, unspecified (principal); Z20.822 Contact with and (suspected) exposure to COVID-19; F17.210 Nicotine dependence, cigarettes, uncomplicated; J45.909 Unspecified asthma, uncomplicated; E03.9 Hypothyroidism, unspecified; E78.1 Pure hyperglyceridemia; E66.01 Morbid (severe) obesity due to excess calories; Z68.43 Body mass index [BMI] 50.0-59.9, adult; M81.0 Age-related osteoporosis without current pathological fracture
CPT/HCPCS: 87081; 87426; 87880; 99213; C9803; G0463

== ENCOUNTER 2022-02-20 11:49 | Outpatient (CLI) | payer BC, SELFPAY ==
[2022-02-20 13:18] LABS: Anion Gap 4 mmol/L (8-16); Blood Urea Nitrogen 14 mg/dL (7-17); Calcium 10.5 mg/dL (8.4-10.2); Carbon Dioxide 25 mmol/L (22-30); Chloride 107 mmol/L (98-107); Estimated Glomerular Filt Rate > 60; Glucose 104 mg/dL (65-110); Phosphorus 2.5 mg/dL (2.5-4.5); Potassium 4.2 mmol/L (3.4-5.0); Sodium 136 mmol/L (137-145)
[2022-02-20 13:36] LABS: Free T4 Free Thyroxine 1.28 ng/mL (0.78-2.19); Vitamin D 25 Hydroxy 27.1 ng/mL
[2022-02-20 13:48] LABS: Thyroid Stimulating Hormone 0.555 uIU/mL (0.465-4.680)
== END 2022-02-20 11:50 | disposition home or self-care (01) ==
LOC: ANHWCLAB 11:50
PROVIDERS: PCP Internal Medicine; Visit Provider Internal Medicine Endocrinology, Diabetes & Metabolism
DX: E21.3 Hyperparathyroidism, unspecified (principal); E03.9 Hypothyroidism, unspecified
CPT/HCPCS: 36415; 80069; 82306; 83970; 84439; 84443

== ENCOUNTER 2022-06-27 09:10 | Outpatient (RCR) | payer BC, MEDICAID, SELFPAY ==
[2022-06-27 09:24] VITALS: BMI 51.5
== END 2022-06-27 12:07 | disposition home or self-care (01) ==
LOC: ANHDMC 09:10
PROVIDERS: PCP Internal Medicine; Visit Provider Clinical Nurse Specialist
DX: E66.01 Morbid (severe) obesity due to excess calories (principal); Z68.43 Body mass index [BMI] 50.0-59.9, adult; Z71.3 Dietary counseling and surveillance
CPT/HCPCS: 97802

== ENCOUNTER 2022-12-18 14:33 | Outpatient (CLI) | payer BC, SELFPAY ==
[2022-12-18 17:43] LABS: Vitamin D 25 Hydroxy 39.6 ng/mL
[2022-12-18 17:46] LABS: Albumin Level 4.1 g/dL (3.5-5.1); Anion Gap 5 mmol/L (8-16); Blood Urea Nitrogen 14 mg/dL (7-17); Calcium 10.2 mg/dL (8.4-10.2); Carbon Dioxide 25 mmol/L (22-30); Chloride 104 mmol/L (98-107); Estimated Glomerular Filt Rate > 60; Glucose 109 mg/dL (65-110); Phosphorus 2.4 mg/dL (2.5-4.5); Potassium 3.9 mmol/L (3.4-5.0); Sodium 134 mmol/L (137-145)
[2022-12-18 17:55] LABS: Parathyroid Intact 214.9 pg/mL (7.5-53.5)
[2022-12-20 14:47] LABS: Ionized Calcium 5.7 mg/dL (4.7-5.5)
[2022-12-21 05:17] LABS: FSH 4.9 mIU/mL (***)
== END 2022-12-18 14:34 | disposition home or self-care (01) ==
LOC: ANHWCLAB 14:34
PROVIDERS: PCP Internal Medicine; Visit Provider Internal Medicine Endocrinology, Diabetes & Metabolism
DX: E03.9 Hypothyroidism, unspecified (principal); E55.9 Vitamin D deficiency, unspecified; Z78.0 Asymptomatic menopausal state; R23.2 Flushing; E66.9 Obesity, unspecified; E21.3 Hyperparathyroidism, unspecified
CPT/HCPCS: 36415; 80069; 82306; 82330; 83001; 83970; 84439; 84443

== ENCOUNTER 2022-12-30 16:49 | Emergency (ER) | payer BC, SELFPAY ==
--- NOTE | ~2022-12-30 | XR_ITS ---
EXAMINATION: XR chest 2V DATE: 12/30/2022 17:31 INDICATION: Shortness of breath and cough TECHNIQUE: frontal and lateral views of the chest were obtained. COMPARISON: Chest radiograph dated 05/02/2009 FINDINGS: Skinfolds project over the lateral aspect of the bilateral mid and lower lung zones. No focal airspac e opacities, pulmonary edema, pleural effusion or pneumothorax. The cardiomediastinal silhouette is n ormal. Visualized bones and soft tissues are unremarkable. IMPRESSION: 1. No acute cardiopulmonary disease. Reviewed, dictated and finalized at location A.
--- NOTE | 2022-12-30 16:57 | ED.URI ---
HPI - URI/Sore Throat General Chief Complaint: Ear Stated Complaint: Double ear infection Time Seen by Provider: 12/30/22 17:05 Source: patient, RN notes reviewed and old records reviewed Mode of arrival: ambulatory Limitations: no limitations History of Present Illness HPI Narrative: 47-year-old female presents to the [facility] with congestion and both ears hurting. Patient reports she has been seen twice at [place] emergency room over the last 2 weeks. Last week approximately 6 days ago was seen and diagnosed with bilateral ear infection. States it is not getting any better. Comes in today with concerns for COVID and flu as well as significant cough. Patient reports being a smoker Related Data Home Medications Medication Instructions Recorded Confirmed acetaminophen 325 mg capsule 325 mg PO Q6H 12/13/21 12/30/22 (Tylenol) fluticasone propionate 50 2 spray intranasal DAILY PRN 11/22/22 12/30/22 mcg/actuation nasal Congestion spray,suspension (Flonase Allergy Relief) oxaprozin 600 mg tablet 1,200 mg PO DAILY 11/22/22 12/30/22 cetirizine 10 mg tablet (Zyrtec) 10 mg PO DAILY 12/30/22 12/30/22 Allergies Allergy/AdvReac Type Severity Reaction Status Date / Time Sulfa (Sulfonamide Allergy Intermediate Hives Verified 12/30/22 17:02 Antibiotics) Review of Systems Review of Systems: All systems reviewed & are unremarkable except as noted in HPI and below Constitutional: Constitutional: Reports no additional constitutional complaints Eyes: Eyes: Reports no additional eye complaints ENT: Reports as per HPI and Reports otalgia Cardiovascular: Cardiovascular: Reports no additional cardiovascular complaints, Denies chest pain and Denies dyspnea Respiratory: Respiratory: Reports as per HPI, Reports chest congestion, Reports cough and Denies dyspnea Gastrointestinal: Gastrointestinal: Reports no additional gastrointestinal complaints, Denies abdominal pain, Denies nausea and Denies vomiting Musculoskeletal: Musculoskeletal: Reports no additional musculoskeletal complaints Integumentary/Breasts: Skin/Breast: Reports system reviewed and no additional complaints, except as docu Neurologic: Reports system reviewed and no additional complaints, except as documented Psychiatric: Psychiatric: Reports no additional psychiatric complaints Allergic/Immunologic: Allergic/Immunologic: Reports no additional allergic/immunologic complaints PMFSH Past Medical History Medical History Abdominal pain Abnormal uterine bleeding Anemia Anxiety Asthma Blood glucose abnormal Body mass index (BMI) greater than 50 (08/20/18) COVID-19 Depression Discharge from nipple Encounter for IUD insertion Exposure to COVID-19 virus Hand, foot and mouth disease (HFMD) Hidradenitis High triglycerides Hip pain History of Hospital discharge follow-up HPV (human papilloma virus) infection Hypercalcemia Hyperparathyroidism Hypertriglyceridemia Hypothyroidism IUD surveillance Malpositioned IUD Metrorrhagia Migraines Morbid obesity with BMI of 50.0-59.9, adult Obesity Osteoporosis Pneumonia Postoperative visit Pre-op testing Smoker Sore throat Toenail torn away Urinary tract infection Vaginal discharge Vitamin D deficiency Surgical History Surgical History H/O breast surgery bilateral nipple duct removal. 09/22/21. H/O section X2 2006, 2009 H/O dilation and curettage H/O tubal ligation H/O: hysterectomy 02/2021 History of incision and drainage Carbuncle from left armpit 2005 History of right hip replacement 2004 [place] teeth removed Family History Family History Mother , not cause of Blood clot in vein Heart attack Lung cancer Hypertension COPD (chronic obstructive pulmonary disease) Depression Bipolar 1
[2022-12-30 16:58] VITALS: BP 128/95; PULSE 96; RESP 20; TEMP 36.6; O2SAT 100
[2022-12-30] MEDS: ALBUTEROL SULFATE NEB 2.5 MG/3 ML INH INHALATION (17:39)
[2022-12-30] MEDS: IPRATROPIUM BR 0.02% INH SOLN 0.5 MG/2.5 ML VIAL INHALATION (17:40)
== END 2022-12-30 18:28 | disposition home or self-care (01) ==
PROVIDERS: Emergency Provider Nurse Practitioner; PCP Internal Medicine
DX: J40 Bronchitis, not specified as acute or chronic (principal); Z20.822 Contact with and (suspected) exposure to COVID-19; F17.210 Nicotine dependence, cigarettes, uncomplicated; F12.90 Cannabis use, unspecified, uncomplicated; J45.909 Unspecified asthma, uncomplicated; Z86.16 Personal history of COVID-19; E03.9 Hypothyroidism, unspecified; E66.01 Morbid (severe) obesity due to excess calories; Z68.43 Body mass index [BMI] 50.0-59.9, adult; M81.0 Age-related osteoporosis without current pathological fracture; E55.9 Vitamin D deficiency, unspecified
CPT/HCPCS: 71046; 87426; 87804; 94640; 99213; C9803; G0463

== ENCOUNTER 2023-04-17 18:15 | Emergency (ER) | payer BC, SELFPAY ==
[2023-04-17 18:26] VITALS: BP 150/84; PULSE 85; RESP 16; TEMP 36.5; O2SAT 100
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
[2023-04-17] MEDS: KETOROLAC (*BKC) 60 MG/2 ML VIAL IM (18:45)
== END 2023-04-17 18:53 | disposition home or self-care (01) ==
PROVIDERS: Emergency Provider Nurse Practitioner Family; PCP Internal Medicine
DX: G89.29 Other chronic pain (principal); M25.551 Pain in right hip; F17.210 Nicotine dependence, cigarettes, uncomplicated; E21.3 Hyperparathyroidism, unspecified; E78.1 Pure hyperglyceridemia; E66.01 Morbid (severe) obesity due to excess calories; Z68.43 Body mass index [BMI] 50.0-59.9, adult; J45.909 Unspecified asthma, uncomplicated; Z86.16 Personal history of COVID-19
CPT/HCPCS: 96372; 99213; G0463; J1885

== ENCOUNTER 2023-05-15 11:36 | Outpatient (CLI) | payer BC, SELFPAY ==
[2023-05-15 19:01] LABS: Basophils Absolute Auto 0.1 K/mm3 (0.0-0.1); Basophils Percent Auto 0.8 % (0.2-1.2); Eosinophils Absolute Auto 0.1 K/mm3 (0-0.3); Eosinophils Percent Auto 1.6 % (0-4.4); Hematocrit 35.3 % (37.0-47.0); Hemoglobin 10.3 g/dL (12.0-15.0); Immature Granulocyte Absolute 0.03 K/mm3 (0.00-0.031); Immature Granulocyte Percent A 0.4 % (0-0.5); Lymphocytes Absolute Auto 3.14 K/mm3 (0.9-3.2); Lymphocytes Percent Auto 42.8 % (18.3-44.2); Mean Corpuscular HGB Conc 29.2 g/dl (32-36); Mean Corpuscular Hemoglobin 25.1 pg (26-34); Mean Corpuscular Volume 86.1 fl (80-100); Mean Platelet Volume 9.9 fl (7.4-10.4); Monocytes Absolute Auto 0.8 K/mm3 (0.1-0.6); Monocytes Percent Auto 10.4 % (2.6-8.5); Neutrophils Absolute Auto 3.2 K/mm3 (1.3-6.7); Nucleated Red Blood Cells Perc 0.4 % (0.0-0.2); Platelet Count Result 304 k/mm3 (150-375); Red Cell Distribution Width 16.4 % (11.5-14.5); White Blood Count 7.3 K/mm3 (4.5-10.0)
[2023-05-15 19:44] LABS: Ferritin 4.27 ng/mL (6.24-137)
[2023-05-15 19:46] LABS: Anisocytosis 2+ (NORMAL); Hypochromasia 1+ (NORMAL); Platelet Estimate Adequate (Adequate); Schistocytes None Seen (NORMAL)
== END 2023-05-15 11:37 | disposition home or self-care (01) ==
PROVIDERS: PCP Internal Medicine; Visit Provider Nurse Practitioner
DX: D64.9 Anemia, unspecified (principal); R53.83 Other fatigue
CPT/HCPCS: 36415; 82728; 84443; 85025

== ENCOUNTER 2023-06-27 00:54 | Day surgery (SDC) | payer BC, SELFPAY ==
[2023-06-11 14:43] VITALS: BMI 52.2
--- NOTE | 2023-06-19 10:51 | PC.NURSE ---
Spoke with Alla from care coordination. drive worker will come to see patient day of surgery around 0800.
[2023-06-27 07:32] VITALS: BP 151/82; PULSE 76; RESP 16; TEMP 36.4; O2SAT 100
[2023-06-27] MEDS: LACTATED RINGERS 1,000 ML 150 ML IV CONT (07:43)
--- NOTE | 2023-06-27 08:02 | PM.IMHP ---
H&P: HPI History of Present Illness Date/Time: 06/27/23 08:02 Chief Complaint: screening for colorectal cancer Narrative: this is a 48-year-old woman presents for colonoscopy. She has never had a colonoscopy before. She denies any hematochezia or. She denies any family history of colon cancer. Review of Systems Review of Systems: All systems reviewed & are unremarkable except as noted in HPI and below Constitutional: Constitutional: Denies chills, Denies fever(s), Denies headache(s) and Denies weight loss Eyes: Eyes: Denies change in vision ENT: Denies dizziness, Denies headache(s), Denies neck mass and Denies throat swelling Cardiovascular: Cardiovascular: Denies chest pain, Denies lightheadedness and Denies dyspnea Respiratory: Respiratory: Denies cough, Denies dyspnea and Denies wheezing Gastrointestinal: Gastrointestinal: Denies abdominal pain, Denies change in bowel habits, Denies nausea and Denies vomiting Genitourinary: Genitourinary: Denies hematuria and Denies dysuria Musculoskeletal: Musculoskeletal: Reports as per HPI Integumentary/Breasts: Skin/Breast: Reports as per HPI Neurologic: Denies dizziness and Denies headache(s) Allergic/Immunologic: Allergic/Immunologic: Denies throat swelling and Denies wheezing [facility] Past Medical History Medical History Abdominal pain Abnormal uterine bleeding Anemia Anxiety Asthma Blood glucose abnormal Body mass index (BMI) greater than 50 (08/20/18) COVID-19 Depression Discharge from nipple Encounter for IUD insertion Exposure to COVID-19 virus Hand, foot and mouth disease (HFMD) Hidradenitis High triglycerides Hip pain History of Hospital discharge follow-up HPV (human papilloma virus) infection Hypercalcemia Hyperparathyroidism Hypertriglyceridemia Hypothyroidism IUD surveillance Malpositioned IUD Metrorrhagia Migraines Morbid obesity with BMI of 50.0-59.9, adult Obesity Osteoporosis Pneumonia Postoperative visit Pre-op testing Smoker Sore throat Toenail torn away Urinary tract infection Vaginal discharge Vitamin D deficiency Surgical History Surgical History H/O breast surgery bilateral nipple duct removal. 09/22/21. H/O section X2 2006, 2009 H/O dilation and curettage H/O tubal ligation H/O: hysterectomy 02/2021 History of incision and drainage Carbuncle from left armpit 2005 History of right hip replacement 2003 [place] teeth removed Family History Family History Mother , not cause of Blood clot in vein Heart attack Lung cancer Hypertension COPD (chronic obstructive pulmonary disease) Depression Bipolar 1 disorder Grandparent , cause of Colon cancer Malignant neoplasm of prostate Grandparent Heart attack Hypertension Son Family history of attention deficit hyperactivity disorder (ADHD) PTSD (post-traumatic stress disorder) Asthma Daughter Asthma Social History Social History Smoking packs per day: 0.15 Smoking cigarettes per day: 3.0 Years smoked: 24 Smoking pack-years: 3.60 Smoking status: Current every day smoker Tobacco type: cigarettes Second hand tobacco smoke exposure: No Alcohol intake: current Drinks per week: 1 Alcohol use details: occasional Substance use: never Substance use type: does not use Other substance usage details: recreational Education: Grade School Difficulty w/ Childcare or Family Care: No Living arrangements: with family Gender identity (if verbalized by the patient): Female Spiritual care concerns: No Meds Home Medications and Allergies Home Medications Medication Instructions Recorded Confirmed Type cholecalciferol (vitamin
--- NOTE | 2023-06-27 08:11 | WPDANESEPPF ---
Anes - Initial Pre Proc Eval Procedure: Operation Date: 06/27/23 09:00 Proposed Procedures p Screening Colonoscopy - Derek Mcneal DO Date/Time: 06/27/23 08:11 Surgeon: Derek Mcneal DO Pre Op Diagnosis: neoplasm screening Patient Data Age: 48 Gender: F Height: 1.63 m Weight: 136.6 kg Last Vital Signs Temp 97.6 F 06/27/23 07:32 Pulse 76 06/27/23 07:32 Resp 16 06/27/23 07:32 BP 151/82 H 06/27/23 07:32 Pulse Ox 100 06/27/23 07:32 O2 Del Method Room Air 06/27/23 07:32 Allergies Allergy/AdvReac Type Severity Reaction Status Date / Time Sulfa (Sulfonamide Allergy Intermediate Hives Verified 06/27/23 07:26 Antibiotics) lisinopril Allergy Mild Cough Verified 06/27/23 07:26 Home Medications Medication Instructions Recorded Confirmed Type cholecalciferol (vitamin D3) 1,250 1,250 mcg PO WEEKLY #14 tabs 12/18/22 06/27/23 Rx mcg (50,000 unit) tablet levothyroxine 150 mcg tablet 150 mcg PO DAILY #90 tabs 12/18/22 06/27/23 Rx inhalational spacing device #1 ea 12/30/22 06/27/23 Rx (Aerochamber MV spacer) Heavy duty rollator with seat #1 ea 02/04/23 06/27/23 Rx amlodipine 10 mg tablet 10 mg PO DAILY #90 tabs 02/15/23 06/27/23 Rx duloxetine 60 mg capsule,delayed 60 mg PO DAILY #90 caps 05/06/23 06/27/23 Rx release phentermine 37.5 mg tablet 37.5 mg PO DAILY #30 tabs 05/15/23 06/27/23 Rx oxaprozin 600 mg tablet 600 mg PO DAILY 06/11/23 06/27/23 History Patient hx anesthesia problems: none Family hx anesthesia problems: none Results Review: All pre-operative results and documents have been reviewed as part of the pre-operative evaluation. [facility] Past Medical History Medical History Abdominal pain Abnormal uterine bleeding Anemia Anxiety Asthma Blood glucose abnormal Body mass index (BMI) greater than 50 (08/20/18) COVID-19 Depression Discharge from nipple Encounter for IUD insertion Exposure to COVID-19 virus Hand, foot and mouth disease (HFMD) Hidradenitis High triglycerides Hip pain History of Hospital discharge follow-up HPV (human papilloma virus) infection Hypercalcemia Hyperparathyroidism Hypertriglyceridemia Hypothyroidism IUD surveillance Malpositioned IUD Metrorrhagia Migraines Morbid obesity with BMI of 50.0-59.9, adult Obesity Osteoporosis Pneumonia Postoperative visit Pre-op testing Smoker Sore throat Toenail torn away Urinary tract infection Vaginal discharge Vitamin D deficiency Surgical History Surgical History H/O breast surgery bilateral nipple duct removal. 09/22/21. H/O section X2 2006, 2009 H/O dilation and curettage H/O tubal ligation H/O: hysterectomy 02/2021 History of incision and drainage Carbuncle from left armpit 2005 History of right hip replacement 2003 [place] teeth removed Family History Family History Mother , not cause of Blood clot in vein Heart attack Lung cancer Hypertension COPD (chronic obstructive pulmonary disease) Depression Bipolar 1 disorder Grandparent , cause of Colon cancer Malignant neoplasm of prostate Grandparent Heart attack Hypertension Son Family history of attention deficit hyperactivity disorder (ADHD) PTSD (post-traumatic stress disorder) Asthma Daughter Asthma Social History Social History Smoking packs per day: 0.15 Smoking cigarettes per day: 3.0 Years smoked: 24 Smoking pack-years: 3.60 Smoking status: Current every day smoker Tobacco type: cigarettes Second hand tobacco smoke exposure: No Alcohol intake: current Drinks per week: 1 Alcohol use details: occasional Substance use: never Substance use type: does not use Oth
[2023-06-27 09:12] VITALS: BP 118/68; PULSE 82; RESP 22; O2SAT 100
[2023-06-27 09:22] VITALS: BP 152/90; PULSE 84; RESP 19; O2SAT 100
[2023-06-27 09:32] VITALS: BP 142/82; PULSE 74; RESP 24; O2SAT 100
== END 2023-06-27 09:45 | disposition home or self-care (01) ==
PROVIDERS: PCP Internal Medicine; Visit Provider Surgery
PROC: 0DJD8ZZ Inspection of Lower Intestinal Tract, Via Natural or Artificial Opening Endoscopic (ICD-10-PCS; CPT 45378; principal; 2023-06-27 09:00)
DX: Z12.11 Encounter for screening for malignant neoplasm of colon (principal); K62.1 Rectal polyp; E03.9 Hypothyroidism, unspecified; D64.9 Anemia, unspecified; F41.9 Anxiety disorder, unspecified; M81.0 Age-related osteoporosis without current pathological fracture; J45.909 Unspecified asthma, uncomplicated; F32.A Depression, unspecified; E83.52 Hypercalcemia; F17.210 Nicotine dependence, cigarettes, uncomplicated; E66.01 Morbid (severe) obesity due to excess calories; Z68.43 Body mass index [BMI] 50.0-59.9, adult; Z79.51 Long term (current) use of inhaled steroids; Z98.890 Other specified postprocedural states; Z80.1 Family history of malignant neoplasm of trachea, bronchus and lung; Z80.8 Family history of malignant neoplasm of other organs or systems; Z80.42 Family history of malignant neoplasm of prostate; Z82.49 Family history of ischemic heart disease and other diseases of the circulatory system
CPT/HCPCS: 45380; 88305; J2001; J2704; J7120

== ENCOUNTER 2023-09-11 14:26 | Outpatient (CLI) | payer BC, SELFPAY ==
[2023-09-11 19:19] LABS: Iron 36 ug/dL (37-170)
[2023-09-11 19:25] LABS: Basophils Absolute Auto 0.1 K/mm3 (0.0-0.1); Basophils Percent Auto 0.8 % (0.2-1.2); Eosinophils Absolute Auto 0.2 K/mm3 (0-0.3); Eosinophils Percent Auto 2.6 % (0-4.4); Immature Granulocyte Absolute 0.01 K/mm3 (0.00-0.031); Immature Granulocyte Percent A 0.2 % (0-0.5); Lymphocytes Absolute Auto 2.11 K/mm3 (0.9-3.2); Lymphocytes Percent Auto 34.5 % (18.3-44.2); Mean Corpuscular HGB Conc 30.6 g/dl (32-36); Mean Corpuscular Volume 85.1 fl (80-100); Mean Platelet Volume 9.3 fl (7.4-10.4); Monocytes Absolute Auto 0.6 K/mm3 (0.1-0.6); Monocytes Percent Auto 9.6 % (2.6-8.5); Neutrophils Absolute Auto 3.2 K/mm3 (1.3-6.7); Neutrophils Percent Auto 52.3 % (45.5-73.1); Platelet Count Result 293 k/mm3 (150-375); Red Blood Count 4.23 M/mm3 (4.2-5.4); Red Cell Distribution Width 19.8 % (11.5-14.5); White Blood Count 6.1 K/mm3 (4.5-10.0)
[2023-09-11 19:28] LABS: Percent Iron Saturation 8 % (20-50)
[2023-09-11 19:34] LABS: Anion Gap 6 mmol/L (4-12); Blood Urea Nitrogen 13 mg/dL (7-17); Carbon Dioxide 26 mmol/L (22-30); Chloride 104 mmol/L (98-107); Estimated Glomerular Filt Rate > 60; Glucose 98 mg/dL (65-110); Sodium 136 mmol/L (137-145)
[2023-09-11 19:56] LABS: Ferritin 5.46 ng/mL (6.24-137)
[2023-09-13 13:58] LABS: NIL 0.03 IU/mL; Quantiferon TB Plus, 1T NEGATIVE (NEGATIVE); TB1-NIL 0.02 IU/mL; TB2-NIL 0.02 IU/mL
== END 2023-09-11 14:27 | disposition home or self-care (01) ==
LOC: ANHGOSHLAB 14:28
PROVIDERS: PCP Clinical Nurse Specialist; Visit Provider Clinical Nurse Specialist
DX: D50.9 Iron deficiency anemia, unspecified (principal); R74.8 Abnormal levels of other serum enzymes; Z11.1 Encounter for screening for respiratory tuberculosis; I10 Essential (primary) hypertension
CPT/HCPCS: 36415; 80048; 82728; 83540; 83550; 85025; 86480

== ENCOUNTER 2023-10-14 15:02 | Outpatient (CLI) | payer BC, SELFPAY ==
[2023-10-14 15:26] LABS: Basophils Percent Auto 0.6 % (0.2-1.2); Eosinophils Absolute Auto 0.1 K/mm3 (0-0.3); Eosinophils Percent Auto 1.4 % (0-4.4); Hemoglobin 10.9 g/dL (12.0-15.0); Immature Granulocyte Absolute 0.02 K/mm3 (0.00-0.031); Immature Granulocyte Percent A 0.3 % (0-0.5); Lymphocytes Absolute Auto 3.04 K/mm3 (0.9-3.2); Lymphocytes Percent Auto 48.7 % (18.3-44.2); Mean Corpuscular HGB Conc 31.1 g/dl (32-36); Mean Corpuscular Hemoglobin 26.7 pg (26-34); Mean Corpuscular Volume 85.8 fl (80-100); Mean Platelet Volume 9.1 fl (7.4-10.4); Monocytes Absolute Auto 0.5 K/mm3 (0.1-0.6); Monocytes Percent Auto 8.3 % (2.6-8.5); Neutrophils Absolute Auto 2.5 K/mm3 (1.3-6.7); Neutrophils Percent Auto 40.7 % (45.5-73.1); Platelet Count Result 281 k/mm3 (150-375); Red Blood Count 4.08 M/mm3 (4.2-5.4); Red Cell Distribution Width 18.6 % (11.5-14.5); White Blood Count 6.2 K/mm3 (4.5-10.0)
[2023-10-14 16:34] LABS: Iron 67 ug/dL (37-170)
[2023-10-14 16:38] LABS: Alanine Aminotransferase 21 U/L (6-35); Albumin Level 4.3 g/dL (3.5-5.1); Alkaline Phosphatase 133 U/L (38-126); Anion Gap 9 mmol/L (4-12); Aspartate Amino Transferase 24 U/L (14-36); Bilirubin,Total 0.3 mg/dL (0.2-1.3); Blood Urea Nitrogen 12 mg/dL (7-17); Calcium 10.8 mg/dL (8.4-10.2); Carbon Dioxide 24 mmol/L (22-30); Chloride 102 mmol/L (98-107); Estimated Glomerular Filt Rate > 60; Glucose 102 mg/dL (65-110); Lactate Dehydrogenase 107 U/L (120-246); Potassium 3.8 mmol/L (3.4-5.0); Sodium 135 mmol/L (137-145)
[2023-10-14 16:44] LABS: Percent Iron Saturation 15 % (20-50)
[2023-10-14 17:12] LABS: Ferritin 5.02 ng/mL (6.24-137)
[2023-10-14 17:44] LABS: Folic Acid 8.5 ng/mL (2.76->20); Vitamin B12 < 159.0 pg/mL (239-931)
[2023-10-15 23:44] LABS: Hematocrit 36.2 % (35.0-45.0); Hemoglobin 11.2 g/dL (11.7-15.5); MCH 27.1 pg (27.0-33.0); MCV 87.7 fL (80.0-100.0); RDW 18.2 % (11.0-15.0); Red Blood Cell Count 4.13 Million/uL (3.80-5.10)
[2023-10-17 17:03] LABS: Methylmalonic Acid 191 nmol/L (55-335)
[2023-10-19 14:48] LABS: Soluble Transferrin Receptor 2.82 mg/L (0.76-1.76)
== END 2023-10-14 15:03 | disposition home or self-care (01) ==
LOC: ANHLAB 15:03
PROVIDERS: Nurse Practitioner Family; PCP Clinical Nurse Specialist; Visit Provider Internal Medicine Hematology & Oncology
DX: D50.0 Iron deficiency anemia secondary to blood loss (chronic) (principal)
CPT/HCPCS: 36415; 80053; 82607; 82728; 82746; 83021; 83540; 83550; 83615; 83921; 84238; 85025; 85660

== ENCOUNTER 2024-02-09 19:24 | Emergency (ER) | payer BC, SELFPAY ==
--- NOTE | ~2024-02-09 | XR_ITS ---
XR chest 1V DATE: 02/09/2024 20:26 INDICATION: Chest pain TECHNIQUE: AP chest COMPARISON: 12/30/2022 2 view chest FINDINGS: Heart size is not optimally evaluated on AP projection because of magnification. No pulmonary infiltrate or consolidation, pleural effusion or pulmonary vascular congestion or pneumo thorax is detected. Included skeletal structures are unremarkable. IMPRESSION: No active disease Reviewed, dictated and finalized at location A. BILITATION SERVICES COUNSELOR IMPRESSION: No active disease
--- NOTE | ~2024-02-09 | CT_ITS ---
EXAMINATION: CT brain wo con DATE: 02/09/2024 22:56 INDICATION: Neuropathy. TECHNIQUE: Computed tomography (CT) of the head was performed without intravenous contrast. The mA wa s adjusted according to patient size. Iterative reconstruction technique was employed. The dose-lengt h product was 681.00 mGy-cm. COMPARISON: None FINDINGS: There is no intracranial hemorrhage, acute infarction, or abnormal intracranial mass lesion . The ventricles are normal in size. There is mild mucosal thickening in the ethmoid sinuses. The orb its are normal. The mastoid air cells are normal. IMPRESSION: 1. Normal brain. Reviewed, dictated and finalized at location A. ING MACHINE OPERATOR OR TENDER IMPRESSION: 1. Normal brain.
--- NOTE | 2024-02-09 19:28 | ECG_ITS ---
Test Date: 2024-02-09 19:36:02 Measurements Intervals [place] Rate: 87 P: 56 SD: 169 QRS: 62 QRSD: 88 T: 54 QT: 356 QTc: 430 Interpretive Statements SINUS RHYTHM DELAYED PRECORDIAL R/S TRANSITION MINIMAL Q WAVES- INFERIOR LEADS BORDERLINE T WAVE ABNORMALITY- ANTERIOR LEADS BORDERLINE ECG No previous ECG available for comparison Electronically Signed On 02-10-2024 06:12:38 ANATOMY PROFESSOR by Sal Silva D.O.
[2024-02-09 19:30] VITALS: BP 156/106; PULSE 94; RESP 15; TEMP 36.3; O2SAT 100
[2024-02-09 19:51] LABS: Basophils Absolute Auto 0.1 K/mm3 (0.0-0.1); Basophils Percent Auto 0.6 % (0.2-1.2); Hematocrit 37.5 % (37.0-47.0); Hemoglobin 12.1 g/dL (12.0-15.0); Immature Granulocyte Absolute 0.02 K/mm3 (0.00-0.031); Immature Granulocyte Percent A 0.2 % (0-0.5); Lymphocytes Absolute Auto 3.62 K/mm3 (0.9-3.2); Lymphocytes Percent Auto 43.2 % (18.3-44.2); Mean Corpuscular HGB Conc 32.3 g/dl (32-36); Mean Corpuscular Hemoglobin 28.7 pg (26-34); Mean Corpuscular Volume 89.1 fl (80-100); Mean Platelet Volume 9.1 fl (7.4-10.4); Monocytes Absolute Auto 0.5 K/mm3 (0.1-0.6); Monocytes Percent Auto 6.2 % (2.6-8.5); Neutrophils Absolute Auto 4.2 K/mm3 (1.3-6.7); Neutrophils Percent Auto 49.8 % (45.5-73.1); Platelet Count Result 333 k/mm3 (150-375); Red Blood Count 4.21 M/mm3 (4.2-5.4); Red Cell Distribution Width 16.9 % (11.5-14.5); White Blood Count 8.4 K/mm3 (4.5-10.0)
[2024-02-09 20:02] LABS: Alanine Aminotransferase 20 U/L (6-35); Albumin Level 4.1 g/dL (3.5-5.1); Alkaline Phosphatase 154 U/L (38-126); Anion Gap 6 mmol/L (4-12); Aspartate Amino Transferase 24 U/L (14-36); Bilirubin,Total 0.4 mg/dL (0.2-1.3); Blood Urea Nitrogen 8 mg/dL (7-17); Calcium 11.1 mg/dL (8.4-10.2); Carbon Dioxide 24 mmol/L (22-30); Chloride 109 mmol/L (98-107); Estimated CRCL calculation 163 ml/min; Estimated Glomerular Filt Rate > 60; Glucose 119 mg/dL (65-110); Lipase 265 U/L (23-300); Potassium 3.9 mmol/L (3.4-5.0); Sodium 139 mmol/L (137-145)
[2024-02-09 20:06] LABS: Partial Thromboplastin Time 31.4 Seconds (22.3-36.8); Prothrombin Time 13.6 Seconds (11.1-14.7)
[2024-02-09 20:12] LABS: Troponin I < 0.012 ng/mL (0.000-0.034)
[2024-02-09 21:11] VITALS: BP 141/81; PULSE 69; RESP 16; O2SAT 100
[2024-02-09] MEDS: ASPIRIN 81 MG CHEWABLE TABLET 324 MG PO (21:58)
[2024-02-09] MEDS: SODIUM CHLORIDE 0.9% IV 1,000 ML 999 ML IV CONT (21:59)
[2024-02-09] MEDS: diphenhydrAMINE HCl INJ 50 MG/ML VIAL 25 MG IV PUSH (22:00)
[2024-02-09] MEDS: PROCHLORPERAZINE EDISYLATE 10 MG/2 ML VIAL IV PUSH (22:00)
[2024-02-09] MEDS: KETOROLAC 15 MG/ML VIAL (*BKC) IV PUSH (22:00)
[2024-02-09 22:01] VITALS: BP 149/80; PULSE 70; RESP 16; O2SAT 100
[2024-02-09 23:02] LABS: Vitamin B12 < 159.0 pg/mL (239-931)
[2024-02-09 23:09] LABS: Troponin I < 0.012 ng/mL (0.000-0.034)
--- NOTE | 2024-02-09 23:31 | PC.NURSE ---
this rn assumed care of patient. this rn took patient report from MAYRA Herring.
--- NOTE | 2024-02-09 23:43 | ED_ITS ---
HPI - Chest Pain General Chief Complaint: Chest Pain Stated Complaint: face/ arms/ tongue/ feet numbness and chest pain Time Seen by Provider: 02/09/24 20:34 History of Present Illness HPI narrative: 48-year-old female with a past medical history significant for anxiety and vitamin B12 deficiency. She has a history of migraine headaches as well. Today patient presents to the emergency room with chief complaint of some neuropathy sensations in the distal finger tips and distal toes. She also exhibits some neuropathy around her face and mouth. She states she also had some chest discomfort radiate out of 10. She states that she had a headache in the center of her head that was her most concerning feature. Has been going on since 7:00 a.m. this morning. Took aspirin at home without any relief of symptoms. This has happened to the patient previously according to herself. She otherwise appears well but does not take any vitamin supplementation for her vitamin B12 deficiency. Patient was otherwise in her normal state of health recent without any recent illness res, illnesses or other complaints besides today. No history of cardiac events or cardiac disease. Related Data Allergies Allergy/AdvReac Type Severity Reaction Status Date / Time Sulfa (Sulfonamide Allergy Intermediate Hives Verified 01/09/24 13:12 Antibiotics) lisinopril Allergy Mild Cough Verified 01/09/24 13:12 Review of Systems Review of Systems: As reviewed above in HPI [facility] Past Medical History Medical History Abdominal pain Abnormal uterine bleeding Anemia Anxiety Asthma Blood glucose abnormal Body mass index (BMI) greater than 50 (08/20/18) COVID-19 Depression Discharge from nipple Encounter for IUD insertion Exposure to COVID-19 virus Hand, foot and mouth disease (HFMD) Hidradenitis High triglycerides Hip pain History of Hospital discharge follow-up HPV (human papilloma virus) infection Hypercalcemia Hyperparathyroidism Hypertriglyceridemia Hypothyroidism IUD surveillance Malpositioned IUD Metrorrhagia Migraines Morbid obesity with BMI of 50.0-59.9, adult Obesity Osteoporosis Pneumonia Postoperative visit Pre-op testing Smoker Sore throat Toenail torn away Urinary tract infection Vaginal discharge Vitamin D deficiency Surgical History Surgical History H/O breast surgery bilateral nipple duct removal. 09/22/21. H/O section X2 2006, 2009 H/O dilation and curettage H/O tubal ligation H/O: hysterectomy 02/2021 History of incision and drainage Carbuncle from left armpit 2005 History of right hip replacement 2004 [place] teeth removed Family History Family History Mother , not cause of Blood clot in vein Heart attack Lung cancer Hypertension COPD (chronic obstructive pulmonary disease) Depression Bipolar 1 disorder Grandparent , cause of Colon cancer Malignant neoplasm of prostate Grandparent Heart attack Hypertension Son Family history of attention deficit hyperactivity disorder (ADHD) PTSD (post-traumatic stress disorder) Asthma Daughter Asthma Social History Social History Smoking packs per day: 0.15 Smoking cigarettes per day: 3.0 Years smoked: 24 Smoking pack-years: 3.60 Smoking status: Current every day smoker Tobacco type: cigarettes Second hand tobacco smoke exposure: No Alcohol intake: current Drinks per week: 1 Alcohol use details: occasional Substance use: never Substance use type: does not use Other substance usage details: recreational Education: Grade School Difficulty w/ Childcare or Family Care: No Living arrangements: with family Gender identity (if verbalized by the patient): Female Spiritual care concerns: No Exam Narrative: GENERAL: obese, not in any acute distress, answer my questions appropriately HEAD: [Normocephalic, atraumatic.] EYES: [PERRLA and EOMI.] ENT: Nares clear, no rhinorrhea or epistaxis. Mucous membranes moist. NECK: Supple. CHEST: [Clear to auscultation. No respiratory distress.] HEART: [Regular rate and rhythm]. No murmur heard. [Normal peripheral pulses.] ABDOMEN: [Soft, nondistended], [nontender], [No rigidity or guarding] EXTREMITIES: Normal range of motion. [No edema.] SKIN: Warm, dry, no rash. NEURO: [No focal deficits]. Alert and oriented [x3.] full strength and sensati on throughout both arms and legs but does exhibit some in the needles neuropathy in her fingertips going up to her forearms and toes going up to the mid calf. No strength deficits, full strength in motor function throughout both arms and legs, no facial asymmetry. Cranial nerves 2-12 are intact. PSYCH: Anxious and tearful Course Vital Signs Vital signs: Vital Signs Temperature 36.3 C L 02/09/24 19:30 Pulse Rate 94 02/09/24 19:30 Respiratory Rate 15 02/09/24 19:30 Blood Pressure 156/106 H 02/09/24 19:30 Pulse Oximetry 100 02/09/24 19:30 Oxygen Delivery Room Air 02/09/24 19:30 Temperature 36.3 C L 02/09/24 19:30 Pulse Rate 70 02/09/24 22:01 Respiratory Rate 16 02/09/24 22:01 Blood Pressure 149/80 H 02/09/24 22:01 Pulse Oximetry 100 02/09/24 22:01 Oxygen Delivery Room Air 02/09/24 21:10 MDM - Chest Pain MDM Narrative Medical decision making narrative: 48-year-old female with history of anxiety, vitamin B12 deficiency, migraine headaches. She presents with a constellation of complaints including a migraine headache, chest pain as well as neuropathy in her hands and feet. She describes a glove and stocking type distribution of neuropathy with pins and needle sensation in her fingertips going up to her elbows and toes going up to her calf. She describes a headache at the front of her head she describes as a migraine headaches 7:00 a.m. this morning when she woke up. Denies any injuries, trauma or other symptoms besides chest pain without any associated nausea, vomiting, back pain, abdominal pain, fever, chills. She was otherwise in her normal state of health. Differential diagnosis given her historical features does include a vitamin deficiencies as B12 with the symmetric polyneuropathy, intracranial process such as stroke or CVA is less likely although she does have elevated risk factors including obesity. her chest pain sounds musculoskeletal in nature but she is also very anxious and tearful this could be contributing factor. Low suspicion ACS although she does warrant a cardiac workup again with her risk factors. Serial troponins, EKG, chest x-ray, CT of the head, vitamin B12 level and CBC, CMP ordered. She was given a migraine cocktail including Compazine, Benadryl, Toradol and a fluid bolus. Patient had symptomatic improvement upon reassessments. laboratory studies showed no leukocytosis or anemia. Normal platelet count. Coagulation studies within normal limits. Electrolyte panel within normal limits, no renal dysfunction, normal glucose. Calcium slightly elevated 11.1 but nonspecific. A CMP with mildly elevated alk-phos 154 but otherwise unremarkable. Serial troponins were negative x2. Negative lipase. Undetectable B12 level indicative of severe vitamin B12 deficiency and a good explanation for patient's symmetric polyneuropathy. chest x-ray shows no active disease in the chest. CT scan of the head as interpreted by myself and also by Radiology shows no acute intracranial abnormalities. There is no ICH, mass effect or edema. No skull fractures. Patient was given an intramuscular dose of cyanocobalamin vitamin B12 for her deficiency and will need to be discharged home with supplemental B12 and have outpatient follow-up with her primary care provider and potentially even referral to a neurologist for her continued symptomatology. Patient is stable for discharge at this time given her resolution of symptoms and diagnosis at this time not requiring hospitalization. Patient was made aware of her diagnosis and plan of care going forward and prescription sent to her pharmacy. Medical Records Data Attestation: I reviewed the patient's medical records. Lab Data Attestation: I reviewed the patient's lab results. 02/09/24 19:45 02/09/24 19:45 Labs: Lab Results 02/09/24 02/09/24 Range/Units 19:45 21:56 WBC 8.4 (4.5-10.0) K/mm3 RBC 4.21 (4.2-5.4) M/mm3 Hgb 12.1 (12.0-15.0) g/dL Hct 37.5 (37.0-47.0) % MCV 89.1 (80-100) fl MCH 28.7 (26-34) pg MCHC 32.3 (32-36) g/dl RDW 16.9 H (11.5-14.5) % Plt Count 333 (150-375) k/mm3 MPV 9.1 (7.4-10.4) fl Immature Gran % (Auto) 0.2 (0-0.5) % Neut % (Auto) 49.8 (45.5-73.1) % Lymph % (Auto) 43.2 (18.3-44.2) % [place] % (Auto) 6.2 (2.6-8.5) % Eos % (Auto) 0.0 (0-4.4) % Baso % (Auto) 0.6 (0.2-1.2) % Lymph # (Auto) 3.62 H (0.9-3.2) K/mm3 [place] # (Auto) 0.5 (0.1-0.6) K/mm3 Eos # (Auto) 0.0 (0-0.3) K/mm3 Baso # (Auto) 0.1 (0.0-0.1) K/mm3 Abs Immat Gran (auto) 0.02 (0.00-0.031) K/mm3 Absolute Neuts (auto) 4.2 (1.3-6.7) K/mm3 Absolute Nucleated RBC 0.000 (0.0-0.012) K/mm3 Nucleated RBC % 0.0 (0.0-0.2) % PT 13.6 (11.1-14.7) Seconds INR 1.0 APTT 31.4 (22.3-36.8) Seconds Sodium 139 (137-145) mmol/L Potassium 3.9 (3.4-5.0) mmol/L Chloride 109 H (98-107) mmol/L Carbon Dioxide 24 (22-30) mmol/L Anion Gap 6 (4-12) mmol/L BUN 8 (7-17) mg/dL Creatinine 0.50 L (0.7-1.0) mg/dL Estim Creat Clear Calc 163 ml/min Estimated GFR > 60 (59 - ) Glucose 119 H (65-110) mg/dL Calcium 11.1 H (8.4-10.2) mg/dL Total Bilirubin 0.4 (0.2-1.3) mg/dL AST 24 (14-36) U/L ALT 20 (6-35) U/L Alkaline Phosphatase 154 H (38-126) U/L Troponin I < 0.012 < 0.012 (0.000-0.034) ng/mL Total Protein 8.0 (6.3-8.2) g/dL Albumin 4.1 (3.5-5.1) g/dL Lipase 265 (23-300) U/L Vitamin B12 < 159.0 L (239-931) pg/mL Imaging Data Attestation: I personally reviewed and interpreted this imaging study as follows: My impression: Unremarkable CT head per my interpretation without any bleed, subarachnoid hematoma or hemorrhage, no skull fracture. Radiologist's impression: Impressions Chest X-Ray 02/09/24 20:36 IMPRESSION: No active disease ECG Data EKG #1: Attestation: I personally reviewed and interpreted this ECG as follows: ECG completion date: 02/09/24 ECG completion time: 19:36 Prior ECG tracings: not available for review Interpretation: No ST segment elevations, depressions or inversions. Normal rate rhythm an axis, normal QTC interval 430, HI S of 88, HI interval 169. No signs of acute ischemia. No previous EKG for comparison purposes. normal sinus rhythm. Discharge Plan Discharge Clinical Impression: Vitamin B12 deficiency (non anemic), Neuropathy, Migraine, Chest pain Patient Disposition: Home, Self-Care Condition: Stable Instructions: Antibiotic Form, Vitamin B Combination (By mouth), Chest Pain (DC), Acute Headache (DC), Paresthesia (ED), Vitamin B12 Deficiency (ED) Additional Instructions: your symptoms are very consistent with vitamin B12 deficiency given that your vitamin B12 level is nearly undetectable. This can cause damage to the nerve structures especially in the hands and feet and face which likely explain her symptoms. You will need to be placed on vitamin B12 supplementation and follow- up with your primary care provider. Return at any point with any new or worsening concerns but please follow-up your PCP and get potential referral to a neurologist outpatient. Prescriptions: New mecobalamin (vitamin B12) [B12 Active] 1,000 mcg tablet,chewable 1,000 mcg PO DAILY Qty: 20 0RF folic acid 1 mg tablet 1 mg PO DAILY Qty: 20 0RF No Action (DME) Aerochamber MV Spacer See Rx Instructions .Route Qty: 1 0RF Rx Instructions: As directed tramadol 50 mg tablet 50 mg PO Q6H PRN (Reason: pain) Qty: 30 0RF levothyroxine 150 mcg tablet 150 mcg PO DAILY Qty: 90 2RF duloxetine 60 mg capsule,delayed release(DR/EC) 120 mg PO DAILY Qty: 180 3RF (DME) Heavy duty rollator with seat See Rx Instructions .Route .MEDSUPPLY Qty: 1 0RF Rx Instructions: Heavy duty rollator with seat and brakes (with seat that holds weights up to 350 lbs) amlodipine 10 mg tablet 10 mg PO DAILY Qty: 90 0RF Follow-up/Referrals: Lorenzo Hughes DO [Primary Care Provider] - Time of Disposition: 23:54
[2024-02-10] MEDS: FOLIC ACID 1 MG TABLET PO (00:04)
[2024-02-10] MEDS: CYANOCOBALAMIN INJ 1,000 MCG/ML VIAL 1000 MCG IM (00:05)
== END 2024-02-10 00:40 | disposition home or self-care (01) ==
PROVIDERS: Emergency Provider Student in an Organized Health Care Education/Training Program; PCP Internal Medicine
DX: G62.9 Polyneuropathy, unspecified (principal); E53.8 Deficiency of other specified B group vitamins; G43.909 Migraine, unspecified, not intractable, without status migrainosus; R07.9 Chest pain, unspecified; E55.9 Vitamin D deficiency, unspecified; E21.3 Hyperparathyroidism, unspecified; E78.1 Pure hyperglyceridemia; E03.9 Hypothyroidism, unspecified; E66.01 Morbid (severe) obesity due to excess calories; Z68.43 Body mass index [BMI] 50.0-59.9, adult; M81.0 Age-related osteoporosis without current pathological fracture; F41.9 Anxiety disorder, unspecified; F17.210 Nicotine dependence, cigarettes, uncomplicated; Z96.641 Presence of right artificial hip joint; Z87.01 Personal history of pneumonia (recurrent); Z87.442 Personal history of urinary calculi; Z86.2 Personal history of diseases of the blood and blood-forming organs and certain disorders involving the immune mechanism; Z90.710 Acquired absence of both cervix and uterus; Z79.899 Other long term (current) drug therapy; R94.31 Abnormal electrocardiogram [ECG] [EKG]
CPT/HCPCS: 36415; 70450; 71045; 80053; 82607; 83690; 84484; 85025; 85610; 85730; 93005; 96361; 96372; 96374; 96375; 99284; A9270; J0780; J1200; J1885; J3420; J7030

== ENCOUNTER 2024-05-04 09:15 | Outpatient (CLI) | payer BC, SELFPAY ==
--- NOTE | ~2024-05-04 | DEXA_ITS ---
Bone Density Report Name: GERRY WEBB Age: 48 Sex: Female Ethnicity: White Date of : 1975 Indication: prior fracture; Referring Provider: PAUL ROSALES Study: Bone densitometry was performed. Exam Date: May 04, 2024 Accession number: [id number] Bone Density: Region BMD T-score Z-score Classification AP Spine(L1-L4) 1.098 0.5 1.0 Normal Femoral Neck (Left) 1.059 1.9 2.4 Normal Total Hip (Left) 1.209 2.2 2.5 Normal World Health Organization criteria for BMD impression classify patients as: Normal (T-score at or above -1.0), Osteopenia (T-score between -1.0 and -2.5), or Osteoporosis (T-score at or below -2.5). 10-year Fracture Risk: FRAX not reported because: Premenopausal woman All T-scores for Spine Total, Hip Total, Femoral Neck at or above -1.0 Clinical Information Provided by Patient: Has had a low trauma fracture Smokes Has used the following medications: Vitamin D, Calcium Patient maximum height was 64.0 No regular weight bearing exercise Does not regularly consume dairy products Drinks caffeinated beverages Onset of menses at age 12 Premenopausal Number of children 2 Impression: The patient's bone mass is within expected range for age, gender and ethnicity. The patient has risk factors, including: smoking, previous fracture. Discussion: BONE DENSITY IS WITHIN EXPECTED LIMITS FOR AGE, SEX AND RACE. Bone density is within expected limits for age, sex and race at all sites measured. The patient should follow a healthful lifestyle (good nutrition with adequate calcium and vitamin D, and appropriate weight-bearing exercise). Follow-Up: Consider repeating this study in 5 years or sooner if there is some new clinical indication. Reported by: JAMES on 05/04/2024 11:28:00 AM. Reviewed, dictated and finalized at location [facility]IC[facility]
--- NOTE | ~2024-05-04 | NM_ITS ---
EXAMINATION: NM parathyroid w imaging DATE: 05/04/2024 14:04 INDICATION: Parathyroid adenoma TECHNIQUE: 18.7 mCi Tc99m sestamibi (Cardiolite) was administered by intravenous route. Anterior imag es of the neck were obtained at 10 minutes and 2 hours. COMPARISON: None. FINDINGS/IMPRESSION: There is no focus of persistent activity in the area of the thyroid or mediastinum to suggest parathy roid adenoma. Reviewed, dictated and finalized at location A. MATCH SOFA CUTTER
--- OUTSIDE RECORDS SUMMARY | 2024-05-04 12:02 | XMS_ITS | Clinical Summary ---
Author Organization [facility] Address [facility] [place] [address] Care Team Providers Care Real Estate Processor Name Role Phone Lorenzo Hughes DO Primary Care Provider [phone] Allergies No known active allergies Medications levothyroxine 175 MCG tablet Take 175 mcg by mouth every morning. Active vitamin D3, cholecalciferol, 400 UNITS tablet Take 400 Units by mouth daily. Active metFORMIN 500 MG tablet Take 500 mg by mouth 2 (two) times daily with meals. Active Active Problems No known active problems Family History Medical History Relation Comments COPD Mother Heart Disease Mother Relation Status Comments Mother Social History Tobacco Use Types Packs/Day Years Used Date Smoking Tobacco: Every Day Smokeless Tobacco: Never Alcohol Use Standard Drinks/Week Comments Yes 0 (1 standard drink = 0.6 oz pur e alcohol) occasional Comments No Sex and Gender Information Value Date Recorded Sex Assigned at Not on file Legal Sex Female 7:29 PM CDT Gender Identity Not on file Sexual Orientation Not on file Last Filed Vital Signs Vital Sign Reading Time Taken Comments Blood Pressure - - Pulse 76 04/28/2017 6:16 PM PUPPET MAKER Temperature 36.3 C (97.4 F) 04/28/2017 6:16 PM PUPPET MAKER Respiratory Rate 22 04/28/2017 6:16 PM PUPPET MAKER Oxygen Saturation 100% 04/28/2017 6:16 PM PUPPET MAKER Inhaled Oxygen Concentration - - Weight 149.7 kg (330 lb) 04/28/2017 6:16 PM PUPPET MAKER Height 167.6 cm (5' 6 ) 04/28/2017 6:16 PM PUPPET MAKER Body Mass Index 53.26 04/28/2017 6:16 PM PUPPET MAKER Plan of Treatment Health Maintenance Due Date Last Done Comments Cervical Cancer Screening Ismael fowler Smear (Age 30 to 64) Every 3 Years 1977 Colorectal Cancer Screening Colonoscopy (10 Years) 1977 Annual Physical 1980 Pneumococcal Vaccine: Pediat rics (0 to 5 Years) and At-Risk Patients (6 to 64 Years) (1 of 2 - PCV) 06/14/1983 Hepatitis C 06/14/1995 DTaP, Tdap and Td Vaccines ( 1 - Tdap) 1996 Hepatitis B Vaccines (1 of 3 - 19+ 3-dose series) 1996 Cervical Cancer Screening Pa p with HPV Testing (Age 30 to 64) Every 5 Years 06/14/2007 Cervical Cancer Screening with HPV 06/14/2007 Mammogram Screening 2017 COVID-19 Vaccine (2023-2 5 season) 2023 Influenza Adult (#1) 2023 Meningococcal B Vaccine Aged Out No l onger eligible based on patient's age to complete this topic Meningococcal Vaccine Aged Out No vinnie ellen eligible based on patient's age to complete this topic RSV Immunizations Under 20 Months Aged Out No longer eligible based on patient's age to complete this topic Insurance Care Teams Real Estate Processor Relationship Specialty Start Date End Date Lorenzo Hughes DO [address] [place] [address] PCP - General INTERNAL MEDICINE 04/28/17
--- OUTSIDE RECORDS SUMMARY | 2024-05-04 12:02 | XMS_ITS | Referral Summary ---
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 pellets 24 hrIndications:Lum bar radiculopathy Take 1 capsule by mouth daily 30 capsule 4 Active amoxicillin-clavu lanate (AUGMENTIN) 875-125 mg per tablet Take 1 tablet by mouth 2 (two) times a day 4 Active ibuprofen (ADVIL,MOTRIN) 800 mg tablet TAKE 1 TABLET BY MOUTH EVERY 6-8 HOURS NEEDED 4 Active traMADoL (ULTRAM) 50 mg tablet Take by mouth every 6 (six) hours as needed 4 Active Active Problems Problem Noted Date Diagnosed Date Nipple discharge 09/08/2021 Overview (09/08/2021): Added automatically from request for surgery [id number] Lower abdominal pain 03/25/2021 Ischemic stroke 10/11/2019 Vitamin D deficiency 01/14/2017 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 Borderline diabetes mellitus 12/07/2016 Fatigue 12/07/2016 Hypothyroidism 12/07/2016 Iron deficiency 12/07/2016 Morbid obesity 12/07/2016 Osteoarthritis 12/07/2016 Arthralgia of hip 10/01/2016 Migraine 08/16/2016 Iron deficiency anemia 09/22/2012 Microcytic anemia 09/21/2012 Immunizations Immunization Administration Dates Next Due Hep A, Adult 11/17/2005 Pfizer SARS-CoV-2 Monovalent Vaccination (12+ Yrs) PURPLE 09/11/2020,08/21/2020 Social History Tobacco Use Types Packs/Day Years Used Date Smoking Tobacco: Every Day Cigarettes 0.3 25.1 Started: 1999 Passive Smoke Exposure: Past Smokeless Tobacco: Never Tobacco Cessation:Ready to Q uit: Not Asked; Counseling Given: Not Answered Alcohol Use Standard Drinks/Week Comments Yes 2 (1 standard drink = 0.6 oz pur e alcohol) socially AUDIT-C Answer Date Recorded Q1: How often do you have a drink containing alc ohol? 2-3 times a week 01/14/2024 Q2: How many drinks containi ng alcohol do you have on a typical day when you are drinking? 1 or 2 01/14/2024 Q3: How often do you have si x or more drinks on one occasion? Never 01/14/2024 Personal Safety Answer Date Recorded Have you ever been in or are you currently in a harmful physical or emotional relationship or is someone making you feel afraid or unsafe? 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 Author CCM Chronic Pain Care Plan Chronic Care Management No Angela Serna RN Note: Problem: Chronic Pain Goals: 1. Minimize further functional decline 2. Maximize quality of life 3. Control pain Strategies: - Activity/exercise program recommendation - Conservative stepwise pain medicine strategy with multi-disciplinary approach - Recommend healthy lifestyle strategies and compensatory methods as needed Reduce the likelihood of falling Lifestyle No Angela Serna, RN Note: Below are four things you can do to prevent falls: Begin an exercise program to improve your leg strength & balance Ask your doctor or pharmacist to review your medicines Get annual eye check-ups & update your eyeglasses Make your home safer by: Removing clutter & tripping hazards Putting railings on all stairs & adding grab bars in the bathroom Having good lighting, especially on stairs Contact your local community or senior center for information on exercise, fall prevention programs, or options for improving home safety. Procedures Procedure Name Priority Date/Time Associated Diagnosis Comments DIAGNOSTIC MAMMOGRAM BILATERAL W ARIS Schedule Routine, Read Routine (OP Routine) 06/21/2022 9:46 AM CDT Discharge from breast from Last 3 Months or Most Recently Relevant to Health Maintenance Results * Diagnostic Mammogram Bilateral W Aris (06/21/2022 9:46 AM CDT) Anatomical Region Laterality Modality Breast Bilateral Mammography 06/21/2022 10:4 7 AM CDT Impressions 06/21/2022 10:59 AM CDT Postsurgical changes from BILATERAL duct excision. No new suspicious abnormality within EITHER breast. OVERALL FINAL ASSESSMENT: BI-RADS Category 2: Benign. RECOMMENDATION: 1. Annual screening mammography is recommended. 2. Clinical follow-up is recommended. Dictated by: Carolee Kim MD The radiology attending physician has personally reviewed this study, and had reviewed and/or edited this written report and agrees with it. Electronically signed by: Tammy Torres M.D. Narrative 06/21/2022 10:59 AM CDT EXAMINATION: BILATERAL DIGITAL DIAGNOSTIC MAMMOGRAM INCLUDING CAD AND BILATERAL DIGITAL BREAST TOMOSYNTHESIS; BILATERAL BREAST SONOGRAM HISTORY: 47-year-old woman with persistent bilateral nipple discharge for over 10 years, status post bilateral central duct excision in September 2021. COMPARISON: Mammogram dated 08/03/2021 and 08/14/2019 TECHNIQUE: Full field digital mammographic views of BOTH breasts were performed, including computer aided detection (CAD) and BILATERAL digital breast tomosynthesis (DBT). Directed ultrasound evaluation of BOTH breasts was performed. BREAST PARENCHYMAL COMPOSITION: The breasts are heterogenously dense, which may obscure small masses. MAMMOGRAM FINDINGS: There is no new suspicious abnormality within EITHER breast. Postsurgical changes from BILATERAL duct excision in BOTH breasts are noted. A biopsy clip is again seen within the upper outer LEFT breast. SONOGRAM FINDINGS: There is no focal abnormal solid or cystic lesion suggestive of malignancy in the area of recent concern. Expected postsurgical changes from BILATERAL duct excision noted. Procedure Note Tammy Torres MD - 06/21/2022 EXAMINATION: BILATERAL DIGITAL DIAGNOSTIC MAMMOGRAM INCLUDING CAD AND BILATERAL DIGITAL BREAST TOMOSYNTHESIS; BILATERAL BREAST SONOGRAM HISTORY: 47-year-old woman with persistent bilateral nipple discharge for over 10 years, status post bilateral central duct excision in September 2021. COMPARISON: Mammogram dated 08/03/2021 and 08/14/2019 TECHNIQUE: Full field digital mammographic views of BOTH breasts were performed, including computer aided detection (CAD) and BILATERAL digital breast tomosynthesis (DBT). Directed ultrasound evaluation of BOTH breasts was performed. BREAST PARENCHYMAL COMPOSITION: The breasts are heterogenously dense, which may obscure small masses. MAMMOGRAM FINDINGS: There is no new suspicious abnormality within EITHER breast. Postsurgical changes from BILATERAL duct excision in BOTH breasts are noted. A biopsy clip is again seen within the upper outer LEFT breast. SONOGRAM FINDINGS: There is no focal abnormal solid or cystic lesion suggestive of malignancy in the area of recent concern. Expected postsurgical changes from BILATERAL duct excision noted. IMPRESSION: Postsurgical changes from BILATERAL duct excision. No new suspicious abnormality within EITHER breast. OVERALL FINAL ASSESSMENT: BI-RADS Category 2: Benign. RECOMMENDATION: 1. Annual screening mammography is recommended. 2. Clinical follow-up is recommended. Dictated by: Carolee Kim MD The radiology attending physician has personally reviewed this study, and had reviewed and/or edited this written report and agrees with it. Electronically signed by: Tammy Torres M.D. Claudette Singh MD PhD IMG MAMMO PROCEDURES Final Result from Last 3 Months or Most Recently Relevant to Health Maintenance Insurance [employer] CHOICE IDMA [facility] ACCESS CHOICE IDPA Care Teams Eviction Specialist Relationship Specialty Start Date End Date Lorenzo Hughes DO PCP - General 04/02/17
--- OUTSIDE RECORDS SUMMARY | 2024-05-04 12:02 | XMS_ITS | Clinical Summary ---
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 0 Active cetirizine (ZyrTEC) 10 [...] (09/08/2021): Added automatically from request for surgery [id number] Lower abdominal pain 03/25/2021 Ischemic stroke 10/11/2019 Vitamin D deficiency 01/14/2017 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 Borderline diabetes mellitus 12/07/2016 Fatigue 12/07/2016 Hypothyroidism 12/07/2016 Iron deficiency 12/07/2016 Morbid obesity 12/07/2016 Osteoarthritis 12/07/2016 Arthralgia of hip 10/01/2016 Migraine 08/16/2016 Iron deficiency anemia 09/22/2012 Microcytic anemia 09/21/2012 Immunizations Immunization Administration Dates Next Due Hep A, Adult 11/17/2005 [email or web address] SARS-CoV-2 Monovalent Vaccination (12+ Yrs) PURPLE 09/11/2020,08/21/2020 Surgical History Surgery Date Site/Laterality Comments BREAST BIOPSY 03/18/2014 - 03/17/2015 Left REPLACEMENT TOTAL HIP LATERA L POSITION 03/18/2003 - 03/17/2004 Right SECTION [id number] DILATION AND CURETTAGE OF UTERUS ENDOMETRIAL ABLATION 03/18/2020 - 03/17/2021 HYSTERECTOMY 03/18/2020 - 03/17/2021 OTHER SURGICAL HISTORY 03/18/2005 - 03/17/2006 Left boil surgery FLUORO GUIDED INJECTION HIP RIGHT 08/15/2022 Right Medical History Medical History Date Comments History of gestational diabetes History of gestational diabetes mellitus (GDM) - (Added by TW Conv) Generalized headaches Depression Arthritis Hypothyroidism Anemia Migraine Uterine fibroid Asthma Hypertension Chronic pain disorder Joint pain Family History Medical History Relation Name Comments No Known Problems Father Prostate cancer Maternal Grandfather Alcohol abuse Mother Family history of alcoholism - (Added by TW Conv) Arthritis Mother Family history of arthritis - (Added by TW Conv) Bipolar disorder Mother Family hist ory of bipolar disorder - (Added by TW Conv) COPD Mother Family history of chronic obstructive pulmonary disease - (Added by TW Conv) Heart disease Mother Family history of cardiac disorder - (Added by TW Conv) Hypertension Mother Family history of hypertension - (Added by TW Conv) Lung cancer Mother Mental illness Mother Chronic menta l illness - (Added by TW Conv) Relation Name Status Comments Father Alive Maternal Grandfather Mother Alive Social History Tobacco Use Types Packs/Day Years [...] on file 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 Gender Identity Female 08/24/2019 2:01 PM CDT Sexual Orientation Not on file 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 Not on file Not on reginaldo e Obstetrics History Para Term AB IAB SAB Ectopic Multiple Livin g Live Births 2 2 2 Date Outcome GA Total Labor Labor/2nd/3rd Weight Sex Type Anes PTL Emi A1 A5 Name Clin Term C-S j incis Term C-S j incis Last Filed Vital Signs Vital Sign Reading [...] 07/09/2023 9:09 AM CDT Plan of Treatment Health Maintenance Due Date Last Done Comments Colon Cancer Screening-Colonoscopy 1977 Depression Screening 1977 Hepatitis C Screening 1977 Pneumococcal vaccine <65 (1 of 2 - PCV) 06/14/1983 DTaP/Tdap/Td Vaccine (1 - Tdap) 1988 Hepatitis B Screening 06/14/1995 Regular Well Visit/Exam 18-64 06/14/1995 Breast Cancer Screening-Mammogram 06/22/2023 06/21/2022, 08/03/2021 Covid-19 Vaccine (3 - 2023-2 5 season) 2023 09/11/2020, 08/21/2020 Influenza Vaccine (#1) 2023 HPV Vaccines Aged Out No longer eligi ble based on patient's age to complete this topic Goals Goal Patient Goal Type Associated Problems [...] the likelihood of falling Lifestyle No Angela Serna RN Note: Below are four things you [...] Most Recently Relevant to Health Maintenance Insurance [facility] [employer] CHO[facility] IDPA [employer] ACCESS CHOICE IDPA Care Teams Vc++ Developer Relationship Specialty Start Date End Date Lorenzo Hughes DO PCP - General 04/02/17
--- OUTSIDE RECORDS SUMMARY | 2024-05-04 12:02 | XMS_ITS | Patient Health Summary ---
Author Organization [facility] Address [address] [place] [address] Care Team Providers Care Slitter Operator Name Role Phone Lorenzo Hughes DO Primary Care Provider [phone] Note from Formerly named [facility],non-owned Affiliates and Associated Physician Practices is amultiple site organization consisting of ambulatory clinics and hospital sitesin [place], [place], [place] and [place]. This disclosure is being madepursuant to the Care Everywhere program and may not contain all information available regarding this patient. Last updated 17.[facility] Allergies * Sulfa Drugs(Rash) -Medium Criticality Medications * Be aware that medications may not be up to date on this document. Alwaysverify current medications with the patient. * levothyroxine (SYNTHROID) 150 MCG tablet(Started 10/13/2019) Take 1 tablet by mouth once daily * sertraline (ZOLOFT) 100 MG tablet(Started 01/21/2021) Take 200 mg by mouth once daily * cyclobenzaprine (FLEXERIL) 10 MG tablet(Started 02/16/2021) Take 10 mg by mouth as needed * ibuprofen (MOTRIN) 600 MG tablet(Started 03/09/2021) Take 1 (one) tablet by mouth every 6 hours as needed for Pain * docusate sodium (COLACE) 100 MG capsule(Started 03/09/2021) Take 1 (one) capsule by mouth 2 times daily Hold for loose stools * ondansetron (ZOFRAN) 4 MG tablet(Started 03/09/2021) Take 1 (one) tablet by mouth every 6 hours as needed for Nausea/Vomiting * oxyCODONE-acetaminophen (PERCOCET) 5-325 MG tablet(Started 03/24/2021) Take 1 (one) tablet by mouth every 6 hours as needed for Pain * oxyCODONE-acetaminophen (PERCOCET) 5-325 MG tablet(Started 03/26/2021) Take 1 (one) tablet by mouth every 6 hours as needed for Pain Active Problems Problem Noted Date Diagnosed Date Lower abdominal pain 03/25/2021 Hypothyroidism 02/22/2020 Ischemic stroke 10/11/2019 Migraine 08/16/2016 Iron deficiency anemia 09/22/2012 Microcytic anemia 09/21/2012 Immunizations * Covid Pfizer primary monovalent 12+ yr 0.3mL Purple cap(Given 09/11/2020, 08/21/2020) * HEP A VACCINE, ADULT(Given 11/17/2005) Social History Tobacco Use Types Packs/Day Years Used Date Smoking Tobacco: Every Day Cigarettes Smokeless Tobacco: Never Tobacco Cessation:Ready to Q uit: No; Counseling Given: Yes Alcohol Use Standard Drinks/Week Comments Yes 0 (1 standard drink = 0.6 oz pur e alcohol) socially Sex and Gender Information Value Date Recorded Sex Assigned at Female 03/30/2021 11:03 AM [facility] Gender Identity Female 03/30/2021 11:03 AM [facility]LIST Sexual Orientation Straight 03/30/2021 11 :03 AM [facility]LIST Last Filed Vital Signs Vital Sign Reading Time Taken Comments Blood Pressure 102/51 03/26/2021 7:44 AM [facility] Pulse 76 03/26/2021 7:44 AM [facility] Temperature 36.7 C (98 F) 03/26/2021 7:44 AM [facility]LIST Respiratory Rate 20 03/26/2021 7:44 AM [facility] Oxygen Saturation 100% 03/26/2021 7:44 AM [facility] Inhaled Oxygen Concentration - - Weight 131.5 kg (290 lb) 03/24/2021 5:17 PM [facility]LIST Height 162.6 cm (5' 4 ) 03/24/2021 5:17 PM [facility]LIST Body Mass Index 49.78 03/24/2021 5:17 PM [facility]LIST Procedures * GLUCOSE - POINT OF CARE(Performed 03/25/2021) * COMPREHENSIVE METABOLIC PANEL(Performed 03/25/2021) Performed for Lower abdominal pain * CBC W AUTO DIFFERENTIAL(Performed 03/25/2021) Performed for Lower abdominal pain * URINE MICROSCOPIC ONLY(Performed 03/25/2021) * URINALYSIS REFLEX TO MICROSCOPIC NO CULTURE(Performed 03/25/2021) * CT ABDOMEN PELVIS W CONTRAST(Performed 03/24/2021) Performed for Lower abdominal pain * LACTIC ACID BLOOD REFLEX TO REPEAT(Performed 03/24/2021) * COMPREHENSIVE METABOLIC PANEL(Performed 03/24/2021) * CBC W AUTO DIFFERENTIAL(Performed 03/24/2021) * CARDIAC RHYTHM STRIP ORDER(Performed 03/13/2021) * PATHOLOGY TISSUE EXAM (STL)(Performed 03/09/2021) Performed for Diagnosis unknown * ENDOTRACHEAL TUBE NOTE(Performed 03/09/2021) * KS CYSTOURETHROSCOPY(Performed 03/09/2021) Performed for Diagnosis unknown * LAPAROSCOPIC ASSIST VAGINAL HYSTERECTOMY (LAVH) WITH SALPINGO OOPHORECTOMY (Performed 03/09/2021) Performed for Diagnosis unknown * BLOOD TYPE VERIFICATION(Performed 03/09/2021) * TYPE + SCREEN PANEL(Performed 03/09/2021) Performed for Preop examination * CBC W AUTO DIFFERENTIAL(Performed 03/09/2021) Performed for Preop examination * CARDIAC EKG ORDER(Performed 10/13/2019) * GLUCOSE - POINT OF CARE(Performed 10/12/2019) * ECHO COMPLETE W BUBBLE STUDY(Performed 10/12/2019) Performed for Ischemic stroke (HCC) * MRI BRAIN WO CONTRAST(Performed 10/12/2019) Performed for Ischemic stroke (HCC) * LIPID PROFILE(Performed 10/12/2019) * CBC W/O DIFFERENTIAL(Performed 10/12/2019) * BASIC METABOLIC PANEL (CALCIUM TOTAL)(Performed 10/12/2019) * TROPONIN I(Performed 10/12/2019) * HEMOGLOBIN A1C(Performed 10/12/2019) Performed for Ischemic stroke (HCC) * TROPONIN I(Performed 10/11/2019) * EKG 12-LEAD(Performed 10/11/2019) Performed for Ischemic stroke (HCC) * EKG 12-LEAD(Performed 10/02/2012) * LEAD BLOOD(Performed 09/22/2012) * HEMOGLOBIN A1C(Performed 09/22/2012) * CBC W AUTO DIFFERENTIAL(Performed 09/22/2012) * LIPID PROFILE(Performed 09/22/2012) * ZINC BLOOD(Performed 09/21/2012) * COPPER BLOOD(Performed 09/21/2012) * LEAD BLOOD(Performed 09/21/2012) * HEMOGLOBIN ELECTROPHORESIS(Performed 09/21/2012) * T4 FREE(Performed 09/21/2012) * CK BLOOD(Performed 09/21/2012) * IRON BLOOD(Performed 09/21/2012) * TRANSFERRIN(Performed 09/21/2012) * TSH(Performed 09/21/2012) * FERRITIN(Performed 09/21/2012) * IRON BLOOD(Performed 09/21/2012) * RETIC COUNT(Performed 09/21/2012) * CBC W AUTO DIFFERENTIAL(Performed 09/21/2012) * CT HEAD WO CONTRAST(Performed 09/21/2012) * D-DIMER(Performed 09/21/2012) * XR CHEST 2VW(Performed 09/21/2012) * DRUG ABUSE PANEL 10-20+ETHANOL URINE NO CONFIRM(Performed 09/21/2012) * CBC W AUTO DIFFERENTIAL(Performed 09/21/2012) * CK + CKMB PANEL(Performed 09/21/2012) * TROPONIN I(Performed 09/21/2012) * BASIC METABOLIC PANEL (CALCIUM TOTAL)(Performed 09/21/2012) * URINALYSIS W/MICROSCOPIC NO CULTURE(Performed 09/21/2012) Results * (ABNORMAL) GLUCOSE - POINT OF CARE (03/25/2021 8:12 PM [facility]) Only the most recent of2 resultswithin the time period is included. Glucose WB/POC 123(H) 70 - 106 mg/dL 03/25/2021 8:33 PM [facility] ST[facility]LIST [facility] Specimen Type Cap Fingerstick 2021 8:33 PM F[facility] STYLIST [facility] Blood BLOOD SPECIMEN / Unknown 03/25/2021 8:12 PM [facility]LIST 03/25/2021 8:33 PM [facility] Renay Cheng MD LAB - POINT OF CARE ORDERABLES [facility] [address] [place], [place] [id number] * (ABNORMAL) CBC W AUTO DIFFERENTIAL (03/25/2021 7:57 AM [facility]) Only the most recent of6 resultswithin the time period is included. WBC 6.3 4.4 - 10.7 x10E9/L 03/25/2021 8:16 AM [facility] WBC Corrected 03/25/2021 8:16 AM [facility] RBC 3.63(L) 3.80 - 5.20 x10E12/L 03/25/2021 8:16 AM [facility] Hemoglobin 7.5(L) 12.0 - 15.6 gm/dL 03/25/2021 8:16 AM [facility] Hematocrit 26.5(L) 35.9 - 45.5 % 03/25/2021 8:16 AM [facility] MCV 73.0(L) 80.7 - 98.3 fl 03/25/2021 8:16 AM [facility] MCH 20.7(L) 26.7 - 34.0 pg 03/25/2021 8:16 AM [facility] MCHC 28.3(L) 30.8 - 35.9 gm/dL 03/25/2021 8:16 AM [facility] Platelet Count 338 153 - 416 x10E9/L 03/25/2021 8:16 AM [facility] RDW-CV 18.7(H) 12.1 - 14.9 % 03/25/2021 8:16 AM [facility] MPV 9.0(L) 9.4 - 12.9 fl 03/25/2021 8:16 AM [facility] Neutrophils % 47.1 44.0 - 73.0 % 03/25/2021 8:16 AM [facility] Lymphocytes % 43.3(H) 20.0 - 43.0 % 03/25/2021 8:16 AM [facility] Monocytes % 8.6 5.0 - 13.0 % 03/25/2021 8:16 AM [facility] Eosinophils % 0.0 0.0 - 6.0 % 03/25/2021 8:16 AM [facility] Basophils % 0.8 0.0 - 2.0 % 03/25/2021 8:16 AM [facility] Immature Granulocytes 0.2 0 - 1 % 03/25/2021 8:16 AM [facility] Neutrophil Absolute 2.96 2.01 - 7.14 x10E9/L 03/25/2021 8:16 AM [facility] Lymphocytes Absolute 2.72 1.07 - 3.94 x10E9/L 03/25/2021 8:16 AM [facility] Monocytes Absolute 0.54 0.26 - 1.07 x10E9/L 03/25/2021 8:16 AM [facility] Eosinophils Absolute 0.00 0 - 0.47 x10E9/L 03/25/2021 8:16 AM [facility] Basophils Absolute 0.05 0 - 0.08 x10E9/L 03/25/2021 8:16 AM [facility] Immature Granulocytes Absolute 0.01 0.00 - 0.06 x10E9/L 03/25/2021 8:16 AM [facility] nRBC Auto 0 /100 WBC 03/25/2021 8:16 AM [facility] Blood BLOOD SPECIMEN / Unknown Venipuncture / Unknown 03/25/2021 7:57 AM [facility] 03/25/2021 8:09 AM [facility] Kika Charles MD LAB - HEMATOLOGY ORD ERABLES [facility] [address], [place] [id number] * (ABNORMAL) COMPREHENSIVE METABOLIC PANEL (03/25/2021 7:57 AM [facility]) Only the most recent of2 resultswithin the time period is included. [facility] Glucose 103 70 - 105 mg/dL 03/25/2021 8:25 AM [facility] Sodium 134(L) 136 - 145 mmol/L 03/25/2021 8:25 AM [facility] Potassium 3.7 3.5 - 5.1 mmol/L 03/25/2021 8:25 AM [facility] Chloride 103 98 - 107 mmol/L 03/25/2021 8:25 AM [facility] CO2 25 23 - 31 mmol/L 03/25/2021 8:25 AM [facility] Calcium 10.1 8.4 - 10.4 mg/dL 03/25/2021 8:25 AM [facility] Anion Gap 6(L) 8 - 18 mmol/L 03/25/2021 8:25 AM [facility] BUN 11 7 - 18.7 mg/dL 03/25/2021 8:25 AM [facility] Creatinine 0.67 0.57 - 1.11 mg/dL 03/25/2021 8:25 AM [facility] Alkaline Phosphatase 131 40 - 150 U/L 03/25/2021 8:25 AM [facility] ALT 10 0 - 61 U/L 03/25/2021 8:25 AM [facility] AST 12 5 - 34 U/L 03/25/2021 8:25 AM [facility] Protein Total 6.7 6.4 - 8.3 gm/dL 03/25/2021 8:25 AM [facility] Albumin 3.5 3.5 - 5.2 gm/dL 03/25/2021 8:25 AM [facility] Bilirubin Total 0.4 0.2 - 1.2 mg/dL 03/25/2021 8:25 AM [facility] eGFR by MDRD >60 >60 mL/min/1.7 3m2 03/25/2021 8:25 AM [facility] eGFR by MDRD >60 >60 mL/min/1.7 3m2 03/25/2021 8:25 AM [facility] Blood BLOOD SPECIMEN / Unknown Venipuncture / Unknown 03/25/2021 7:57 AM [facility] 03/25/2021 8:09 AM [facility] Kika Charles MD LAB - CHEMISTRY [facility] Organization Address City/State/ZIP Co de Phone Number [facility] [address] [place] [address] * (ABNORMAL) URINALYSIS REFLEX TO MICROSCOPIC NO CULTURE (03/25/2021 2:48 AM [facility]) Color UA Yellow Straw, Yellow 03/25/2021 3:12 AM [facility] Clarity UA Slt Cloudy(A) Clear 03/25/2021 3:12 AM [facility] Glucose UA Negative Negative 03/25/2021 3:12 AM [facility] Bilirubin UA Negative Negative 03/25/2021 3:12 AM [facility] Ketone UA Negative Negative 03/25/2021 3:12 AM [facility] Specific [place] UA 1.040(H) 1.005 - 1.030 03/25/2021 3:12 AM [facility] Blood UA Negative Negative 03/25/2021 3:12 AM [facility] pH UA 6.0 5.0 - 8.0 pH 03/25/2021 3:12 AM [facility] Protein UA 1+(A) Negative 03/25/2021 3:12 AM [facility] Urobilinogen UA 2.0(A) Negative mg/dL 03/25/2021 3:12 AM [facility] Nitrite UA Negative Negative 03/25/2021 3:12 AM [facility] Leukocyte UA 1+(A) Negative 03/25/2021 3:12 AM [facility] Urine Microscopy Urine microscopy to follow 03/25/2021 3:12 AM [facility] Urine URINE SPECIMEN OBTAINED BY CLEAN CATCH PROCEDURE / Unknown Collection / Unknown 03/25/2021 2:48 AM [facility] 03/25/2021 2:56 AM [facility] Narrative [facility] - 03/25/2021 3:12 AM [facility] Majo Milton PA-C LAB - URINALYSI S ORDERABLES [facility] [address] [place] [address] * (ABNORMAL) URINE MICROSCOPIC ONLY (03/25/2021 2:48 AM [facility]) RBC UA 3-5 None Seen, 0-2, 3-5 # /hpf 03/25/2021 3:16 AM [facility] WBC UA 6-10(A) None Seen, 0-5 # /hpf 03/25/2021 3:16 AM [facility] Bacteria UA Trace(A) None Seen 03/25/2021 3:16 AM [facility] Squamous Epithelial Cells 3-5 None Seen, 0-2, 3-5 /hpf 03/25/2021 3:16 AM [facility] Mucus UA 2+ /LPF 03/25/2021 3:16 AM [facility] Urine URINE SPECIMEN OBTAINED BY CLEAN CATCH PROCEDURE / Unknown Collection / Unknown 03/25/2021 2:48 AM [facility] 03/25/2021 2:56 AM [facility] Narrative [facility] - 03/25/2021 3:16 AM [facility] Majo Milton PA-C LAB - URINALYSI S ORDERABLES Performing Organization Address City/State/[facility] Co de Phone Number [facility] [address] [place] [address] * CT ABDOMEN AND PELVIS WITH IV CONTRAST - Acute Abdomen (03/24/2021 8:38 PM [facility]LIST) Anatomical Region Laterality Modality Abdomen, Pelvis Computed Tomogra phy 03/24/2021 8:44 PM [facility]LIST Narrative 03/24/2021 8:[address] abdomen pelvis HISTORY: Abdominal pain and history of hip surgery with questionable postoperative infection TECHNIQUE: Postcontrast imaging with Isovue-[address] is obtained without prior CT scan for comparison. The liver, gallbladder, spleen, pancreas and adrenal glands are grossly normal. The kidneys, visualized ureters and bladder are normal. The uterus is not visualized and may be surgically absent. There is no adnexal mass. There is questionable partial right gonadal vein thrombus. The visualized stomach and large and small bowel are grossly normal. There is no free air free fluid. Aorta and its branches enhance normally. Prominent mesenteric lymph nodes are present without other evidence of adenopathy. Postsurgical change of the right acetabulum is present. There is marked degenerative change the right hip joint. No evidence of an acute fracture or bone destruction is seen. No definite surrounding fluid collection is present. The heart size is normal. The lung bases are clear. 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 There is postsurgical change the right acetabulum and marked degenerative change the right hip joint. No surrounding fluid collection is present. *Reading Radiologist: Santosh Lyons on 03/24/2021 at 8:47 PM Procedure Note Santosh Lyons MD - 03/24/2021 CT abdomen pelvis HISTORY: Abdominal pain and history of hip surgery with questionable postoperative infection TECHNIQUE: Postcontrast imaging with Isovue-370 is obtained without prior CT scan for comparison. The liver, gallbladder, spleen, pancreas and adrenal glands are grossly normal. The kidneys, visualized ureters and bladder are normal. The uterus is not visualized and may be surgically absent. There is no adnexal mass. There is questionable partial right gonadal vein thrombus. The visualized stomach and large and small bowel are grossly normal. There is no free air free fluid. Aorta and its branches enhance normally. Prominent mesenteric lymph nodes are present without other evidence of adenopathy. Postsurgical change of the right acetabulum is present. There is marked degenerative change the right hip joint. No evidence of an acute fracture or bone destruction is seen. No definite surrounding fluid collection is present. The heart size is normal. The lung bases are clear. 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 There is postsurgical change the right acetabulum and marked degenerative change the right hip joint. No surrounding fluid collection is present. *Reading Radiologist: Santosh Lyons on 03/24/2021 at 8:47 PM Majo Milton PA-C CT ORDERABLES * LACTIC ACID BLOOD REFLEX TO REPEAT (03/24/2021 7:49 PM [facility]LIST) Lactic Acid 0.6 <=2 mmol/L 03/24/2021 8:08 PM [facility]LIST [facility] Blood BLOOD SPECIMEN / Unknown Venipuncture / Unknown 03/24/2021 7:49 PM [facility]LIST 03/24/2021 7:54 PM [facility] Majo Milton PA-C LAB - CHEMISTRY ORDERABLES [facility] [address], [place] [id number] * CARDIAC RHYTHM STRIP ORDER (03/13/2021 4:58 PM [facility]LIST) Narrative 03/13/2021 4:58 PM [facility] Ordered by an unspecified provider. Scanned Document CARDIAC SERVICES ORD ERABLES * PATHOLOGY TISSUE EXAM (STL) (03/09/2021 10:27 AM [facility]) Case Report Surgical Pathology Report Case: [id number] Authorizing Provider: Alla Arthur MD Collected: 03/09/2021 10:27 AM Ordering Location: [facility] Received: 03/09/2021 12:41 PM Pathologist: Sanju Negrete MD Specimen: Uterus w Tubes, uterus with cervix and bilateral tubes 03/13/2021 10:46 AM [facility] Final Diagnosis Cervix uteri: No significant histopathologic changes. Corpus uteri: Secretory endometrium. Endometrial polyp. Leiomyomata. Fallopian tubes, right and left: No significant histopathologic changes. 03/13/2021 10:46 AM [facility] Clinical History The patient is a 45-year-old woman who underwent total laparoscopic hysterectomy with bilateral salpingectomy. 03/13/2021 10:46 AM [facility] Gross Description Received fixed in formalin in one container for gross and microscopic examination, labeled with the patient's name, Yolie Wylie and uterus with tubes is a 150 gm hysterectomy specimen measuring 11.0 cm from fundus to cervix, 4.0 cm from cornu to cornu and 3.5 cm from anterior to posterior. The cervix measures 3.5 x 2.5 cm. The ectocervix is white-watt and granular. The cervical os measures 0.5 cm across and is oval shaped. The specimen is bivalved revealing a 2.5 x 3.0 cm endometrial cavity. There are two pedunculated leiomyoma in the endometrial cavity measuring in aggregate 2.5 x 1.5 x 2.0 cm. In the anterior lower uterine segment, there is a 0.3 x 0.2 cm polyp. Two fallopian tubes are ref free-floating in the container. Both fallopian tubes are fimbriated. The first measures' 5.5 cm in length x 0.2 cm in diameter. The outer surface is purple-watt and smooth with multiple paratubal cysts ranging from 0.2 to 0.6 cm on the external surface. The other fallopian tube is also fimbriated and measures 3 cm in length x 0.4 cm in diameter. The outer surface is purple-watt and smooth. The fimbriated ends of the fallopian tubes are longitudinally sectioned and the remainder of the tube is serially cross sectioned. Line Erector sections are submitted as follows: A1 - Anterior cervix; A2 - Posterior cervix; A2 - Anterior lower uterine segment; A4 - Posterior lower uterine segment; A5 - Anterior endomyometrium; A6 - Posterior endomyometrium; A7 - Polyp; A8 - Leiomyomata; A9-A10 - Fallopian tubes. KH/scs 03/13/2021 10:46 AM [facility] Microscopic Description A microscopic examination was performed. 03/13/2021 10:46 AM [facility] Disclaimer All histochemical and/or immunohistochemical results are interpreted with controls that demonstrate appropriate staining reactions before reporting results. Note on use of immunocytochemistry reagents: This test was developed and its performance characteristic determined by [facility], Department of Laboratory Medicine. It has not been cleared or approved by the U.S. Food and Drug Administration (FDA). The FDA has determined that such clearance or approval is not necessary. The test is used for clinical purpose. It should not be regarded as investigational or for research. This laboratory is certified to perform high complexity testing. The performance characteristics of the IHC/JOSE MIGUEL assays have been validated on formalin-fixed paraffin embedded tissues only. The assays have not been validated on decalcified tissues. Results should be interpreted with caution. 03/13/2021 10:46 AM [facility] Embedded Images 03/13/2021 10:46 AM [facility] Pathology/Cytolo gy UTERUS AND FALLOPIAN TUBES, CS / Unknown 03/09/2021 10:27 AM [facility] 03/09/2021 12:41 PM [facility] Comment:Pre-op diagnosis: Diagnosis unknown [R69] Alla Arthur MD LAB - PATHOLOGY/CYTO LOGY ORDERABLES [facility] [address] [place] [address] * ETT LINE PERFORMABLE (03/09/2021 8:26 AM [facility]) Narrative Perla Lee APRN-CRNA - 03/09/2021 8:26 AM [facility] Perla Lee APRN-CRNA 03/09/2021 8:27 AM Endotracheal Tube Placement: Patient Location: OR. Intubation Event Date/Time: 03/09/2021 8:09 AM Procedure: intubation ([id number]). Procedure Section: Sedation: under general anesthesia. Indications for Airway Management: anesthesia Induction: standard IV Patient Position: sniffing Mask Ventilation: not attempted. Blade Type: Janusz Blade Size: 4 Laryngoscopy View: grade 1 (full cords) Intubation Adjuncts: stylet Tube: endotracheal tube Placement: oral Tube type: cuff - inflated Tube Size (MM): 7 Depth of Insertion (CM): 21 Measured From: lips Cuff Inflated With: air Number of Attempts: 1. Placement Verified By: direct visualization, bilateral breath sounds, chest auscultation and CO2 monitor CXR Findings: ETT in proper place. Tube secured with: adhesive tape. Dentition unchanged? Yes Difficult Airway? No. Procedure Start Time: 03/09/2021 8:09 AM. Procedure End Time: 03/09/2021 8:27 AM. Procedure Total Time: 18.78 minutes. Staff Section Anesthesia Provider: Perla Lee APRN-CRNA, Performed the procedure Collette Cuellar MD GENERAL ANESTHESIA O RDERABLES * BLOOD TYPE VERIFICATION (03/09/2021 7:25 AM [facility]) ABO Rh A POS 03/09/2021 8:1 9 AM [facility] Blood Bank BLOOD SPECIMEN / Unknown Venipuncture / Unknown 03/09/2021 7:25 AM [facility] 03/09/2021 7:31 AM [facility] Alla Arthur MD LAB - BLOOD BANK ORD ERABLES [facility] [address] [place], [place] [id number] [place] [address] * TYPE + SCREEN PANEL (03/09/2021 7:14 AM [facility]) ABO Rh A POS 03/09/2021 8:19 AM [facility] Comment:No history; collect retype. Antibody Screen NEG 8:19 AM [facility]LIST [facility] Blood Bank BLOOD SPECIMEN / Unknown Venipuncture / Unknown 03/09/2021 7:14 AM [facility]LIST 03/09/2021 7:18 AM [facility] Alla Arthur MD LAB - BLOOD BANK ORD ERABLES [facility] [address] [phone] * CARDIAC EKG ORDER (10/13/2019 8:04 PM CDT) Narrative 10/13/2019 8:04 PM CDT Ordered by an unspecified provider. Scanned Document CARDIAC SERVICES ORD ERABLES * ECHO COMPLETE W BUBBLE STUDY (10/12/2019 8:55 AM CDT) Anatomical Region Laterality Modality Chest Echo 10/12/2019 8:08 AM CDT Narrative Procedure Note Eli Alcazar MD - 10/12/2019 Ruthy Mendez MD ECHOCARDIOGRAPHY RAD IANT * MRI BRAIN NON CONTRAST (10/12/2019 5:57 AM CDT) Anatomical Region Laterality Modality Head Magnetic Resonan ce 10/12/2019 8:44 AM CDT Impressions 10/12/2019 11:35 AM CDT IMPRESSION: No evidence of acute cerebral infarction. This report was approved by Kumar Powell on 10/12/2019 11:35 AM . I, Dr. JAKY CALVIN have personally reviewed and interpreted this examination/study. This report was electronically signed by JAKY CALVIN on 10/12/2019 11:35 AM . Narrative 10/12/2019 11:35 AM CDT MRI BRAIN WO CONTRAST DATE: 10/12/2019 5:58 AM EXAMINATION: Magnetic resonance imaging (MRI) of the brain without contrast HISTORY: I63.9: Ischemic stroke TECHNIQUE: MRI of the brain was performed without intravenous contrast according to standard protocol. COMPARISON: No prior study is available for comparison at the time of this dictation. FINDINGS: No evidence of acute or chronic hemorrhage is identified. No evidence of acute cerebral infarction is seen. The ventricles are nondilated. A cavum septum pellucidum et vergae is present. No mass effect or midline shift is seen. The corpus callosum and sella appear normal. The posterior fossa, brainstem, and craniocervical junction appear normal. The visualized portions of the orbits, paranasal sinuses, and mastoids appear normal. Normal flow voids are demonstrated in the carotid arteries and basilar artery. Mild nonspecific prominence of the parotid glands with associated small nonspecific intraparotid lymph nodes. Few scattered small upper cervical lymph nodes are nonspecific and likely reactive. The calvarium and visualized cervical spine appear normal. Procedure Note Jaky Calvin MD - 10/12/2019 MRI BRAIN WO CONTRAST DATE: 10/12/2019 5:58 AM EXAMINATION: Magnetic resonance imaging (MRI) of the brain withoutcontrast HISTORY: I63.9: Ischemic stroke TECHNIQUE: MRI of the brain was performed without intravenous contrast according to standard protocol. COMPARISON: No prior study is available for comparison at the time ofthis dictation. FINDINGS: No evidence of acute or chronic hemorrhage is identified. No evidence of acute cerebral infarction is seen. The ventricles are nondilated. Acavum septum pellucidum et vergae is present. No mass effect or midline shiftis seen. The corpus callosum and sella appear normal. The posterior fossa, brainstem, and craniocervical junction appear normal. The visualized portions of the orbits, paranasal sinuses, and mastoids appear normal. Normal flow voids are demonstrated in the carotidarteries and basilar artery. Mild nonspecific prominence of the parotid glandswith associated small nonspecific intraparotid lymph nodes. Few scatteredsmall upper cervical lymph nodes are nonspecific and likely reactive. The calvarium and visualized cervical spine appear normal. IMPRESSION: No evidence of acute cerebral infarction. This report was approved by Kumar Powell on 10/12/2019 11:35 AM . I, Dr. JAKY CALVIN have personally reviewed and interpreted this examination/study. This report was electronically signed by JAKY CALVIN on10/12/2019 11:35 AM . Ruthy Mendez MD MR ORDERABLES * TROPONIN I (10/12/2019 4:48 AM CDT) Only the most recent of3 resultswithin the time period is included. Troponin I <0.010 <0.032 ng/mL 10/12/2019 5:45 AM CDT [facility] Blood BLOOD SPECIMEN / Unknown Lab Venipuncture / Unknown 10/12/2019 4:48 AM CDT 10/12/2019 5:19 AM CDT Ruthy Mendez MD LAB - CHEMISTRY MARVIN MORALES [facility] Organization Address City/State/ZIP Co de Phone Number [address] [address], [facility] [phone] * HEMOGLOBIN A1C (10/12/2019 4:48 AM CDT) Only the most recent of2 resultswithin the time period is included. Hemoglobin A1c 5.5 4.4 - 6.3 % 10/12/2019 9:34 AM CDT [facility] Estimated Average Glucose 111 mg/dL 10/12/2019 9:34 AM CDT [facility] Comment: HbA1c Interpretation: Treatment target values recommended by ADA and other clinical organizations should be used to evaluate metabolic control in patients. Treatment Target Values: Normal : < 5.7% Pre-diabetes: 5.7-6.4% Diabetes: Equal to or greater than 6.5% Reference: [place] Diabetes Association Standards of Care in Diabetes -2014 In patients 70 years and older consider HbA1c target range of 7.0-7.5% Reference: Diabetes Mellitus in Older People: Position Statement on behalf of the International Association of Gerontology and Geriatrics (IAGG), the Diabetes Working Republican for Older People (EDWPOP), and the International Task Force of Experts in Diabetes. Hernan Gallardo et al. J [place] Medical Directors Association. 2012 Test results diagnostic of diabetes should be repeated for confirmation. The Sebia Capillary 2 assay for the measurement of HbA1c is a National Glycohemoglobin Standardization Program (NGSP)certified method. Blood BLOOD SPECIMEN / Unknown Lab Venipuncture / Unknown 10/12/2019 4:48 AM CDT 10/12/2019 5:19 AM CDT Ruthy Mendez MD LAB - CHEMISTRY MARVIN MORALES [address] [address], [facility] [phone] * (ABNORMAL) CBC W/O DIFFERENTIAL (10/12/2019 4:48 AM CDT) WBC 6.1 3.5 - 10.5 10 3/uL 10/12/2019 5:23 AM [facility] RBC 3.86(L) 3.90 - 5.00 10 6/uL 10/12/2019 5:23 AM [facility] Hemoglobin 7.4(L) 12.0 - 15.5 g/dL 10/12/2019 5:23 AM [facility] Hematocrit 26.9(L) 35.0 - 45.0 % 10/12/2019 5:23 AM [facility] MCV 69.7(L) 81.0 - 97.0 fL 10/12/2019 5:23 AM [facility] MCH 19.2(L) 28.0 - 34.0 pg 10/12/2019 5:23 AM [facility] MCHC 27.5(L) 32.0 - 36.0 g/dL 10/12/2019 5:23 AM [facility] Platelet Count 299 150 - 400 10 3/uL 10/12/2019 5:23 AM [facility] RDW-SD 49.8 36.0 - 50.0 fL 10/12/2019 5:23 AM [facility] RDW-CV 19.9(H) 11.2 - 14.8 % 10/12/2019 5:23 AM [facility] MPV 9.2(L) 9.3 - 12.8 fL 10/12/2019 5:23 AM [facility] nRBC Absolute 0.00 0 10 3/uL 10/12/2019 5:23 AM [facility] nRBC Auto 0.0 0 /100 WBC 10/12/2019 5:23 AM [facility] Blood BLOOD SPECIMEN / Unknown Lab Venipuncture / Unknown 10/12/2019 4:48 AM CDT 10/12/2019 5:19 AM CDT Ruthy Mendez MD LAB - HEMATOLOGY ORD ERABLES [address] [address], [facility] [phone] * (ABNORMAL) BASIC METABOLIC PANEL (CALCIUM TOTAL) (10/12/2019 4:48 AM CDT) Only the most recent of2 resultswithin the time period is included. BUN 10 7 - 26 mg/dL 10/12/2019 5:46 AM [facility] Creatinine 0.6 0.6 - 1.2 mg/dL 10/12/2019 5:46 AM [facility] Sodium 138 136 - 145 mmol/L 10/12/2019 5:46 AM [facility] Potassium 4.1 3.5 - 4.5 mmol/L 10/12/2019 5:46 AM [facility] Chloride 107 98 - 107 mmol/L 10/12/2019 5:46 AM [facility] CO2 23 22 - 29 mmol/L 10/12/2019 5:46 AM [facility] Glucose 104 70 - 115 mg/dL 10/12/2019 5:46 AM [facility] Calcium 10.4(H) 8.4 - 10.2 mg/dL 10/12/2019 5:46 AM [facility] Anion Gap 12 8 - 18 10/12/2019 5:46 AM [facility] BUN/Creatinine Ratio 17 7 - 23 10/12/2019 5:46 AM [facility] Osmolality Calculated 285 270 - 300 mOsm/kg 10/12/2019 5:46 AM [facility] eGFR >60 >60 mL/min/1.7 3 m2 10/12/2019 5:46 AM [facility] Blood BLOOD SPECIMEN / Unknown Lab Venipuncture / Unknown 10/12/2019 4:48 AM CDT 10/12/2019 5:19 AM CDT Ruthy Mendez MD LAB - CHEMISTRY MARVIN MORALES Performing Organization Address City/[facility]/ZIP Co de Phone Number [address] [address], [facility] [phone] * (ABNORMAL) LIPID PROFILE (10/12/2019 4:48 AM CDT) Only the most recent of2 resultswithin the time period is included. Cholesterol Total 124 <200 mg/dL 10/12/2019 5:46 AM CDT [facility] HDL 25(L) >40 mg/dL 10/12/2019 5:46 AM CDT [facility] Comment: ATP III Classification of HDL Cholesterol: <40 mg/dL: Considered a major risk factor. >60 mg/dL: Considered a negative risk factor. LDL Calculated 80 <100 mg/dL 10/12/2019 5:46 AM T [facility] Comment: ATP III Classification of LDL Cholesterol: <100 mg/dL: Optimal 100 - 129 mg/dL: Near Optimal/Above Optimal 130 - 159 mg/dL: Borderline High 160 - 189 mg/dL: High >190 mg/dL: Very High Triglycerides 94 <150 mg/dL 10/12/2019 5:46 AM T [facility] Comment: ATP III Classification of Triglycerides: <150 mg/dL: Normal 150 - 199 mg/dL: Borderline High 200 - 400 mg/dL: High >500 mg/dL: Very High Blood BLOOD SPECIMEN / Unknown Lab Venipuncture / Unknown 10/12/2019 4:48 AM CDT 10/12/2019 5:19 AM CDT Ruthy Mendez MD LAB - CHEMISTRY MARVIN MORALES [address] [address], [facility] [phone] * EKG 12-LEAD (10/11/2019 9:24 PM CDT) Only the most recent of2 resultswithin the time period is included. Ventricular Rate 70 BPM [facility] MUSE Atrial Rate 70 BPM [facility] MUSE P-R Interval 170 ms [facility] MUSE QRS Duration ms 86 ms H MUSE Q-T Interval ms 388 ms [facility] MUSE QTC Calculation (Bezet) 419 ms [facility] MUSE Calculated P Zoe 41 degrees [facility] MUSE Calculated R Zoe 52 degrees [facility] MUSE Calculated T Zoe 41 degrees [facility] MUSE Interpretation EKG NORMAL SINUS RHYTHM CANNOT RULE OUT ANTERIOR INFARCT , AGE UNDETERMINED ABNORMAL ECG NO PREVIOUS ECGS AVAILABLE Confirmed by Jonathan Clark ([id number]) on 01/20/2020 11:26:23 PM [facility] MUSE 10/11/2019 9:24 PM CDT 01/20/2020 11:26 PM FUR STYLIST Ruthy Mendez MD ECG ORDERABLES [facility] * LEAD BLOOD (09/22/2012 9:00 AM CDT) Only the most recent of2 resultswithin the time period is included. [facility] Lead None Detected 0 - 19 ug/dL [facility] Comment: The Centers for Disease Control and Prevention states blood lead levels less than 10 ug/dL in children have been associated with numerous adverse health effects. [facility] Guidelines: Blood lead levels in the range 5-9 ug/dL have been associated with adverse health effects in children aged 6 years and younger. Environmental Exposure: WHO Recommendation <20 Occupational Exposure: OSHA Lead Std 40 Detection Limit = 1 Performed at: [address] [id number] [employer] Programmer: Rah Barragan PhD, Phone: [phone] Venous blood specimen (specimen) 09/22/2012 9:00 AM CDT 09/22/2012 9:09 AM CDT Jerman Brothers MD LAB - CHEMISTRY MARVIN MORALES [address] [phone] * ZINC BLOOD (09/21/2012 5:40 PM CDT) [facility] Zinc 98 56 - 134 ug/dL [facility] Comment: Detection Limit = 5 Performed at: [facility] Lab[address] [id number] [employer] Programmer: Deandre Shi MD, Phone: [phone] 09/21/2012 5:40 PM CDT 09/21/2012 6:10 PM CDT Jerman Brothers MD LAB - CHEMISTRY MARVIN MORALES Performing Organization Address City/[facility]/[place] [address], [facility] [phone] * (ABNORMAL) TRANSFERRIN (09/21/2012 5:40 PM CDT) [facility] Transferrin 353 174 - 382 mg/dL [facility] Transferrin Saturation % 6(L) 16 - 50 % [facility] Venous blood specimen (specimen) 09/21/2012 5:40 PM CDT 09/21/2012 5:55 PM CDT Jerman Brothers MD LAB - CHEMISTRY MARVIN MORALES Performing Organization Address [facility] [place] [address], [facility] [phone] * HEMOGLOBIN ELECTROPHORESIS (09/21/2012 5:40 PM CDT) [facility] Hemoglobin Pattern SEE NOTE [facility] Hemoblogin A 98.2 97.1 - 99.1 % [facility] Hemoglobin A2 1.8 0.9 - 2.9 % [facility] 09/21/2012 5:4 0 PM CDT 09/21/2012 5:55 PM CDT Narrative [facility] - 09/22/2012 4:26 PM CDT Hemoglobin (Hb) electrophoresis at alkaline pH shows two Hb bands with electrophoretic mobilities corresponding to HbA and HbA2. No abnormal hemoglobins detected. One or two gene deletion alpha thalassemia cannot be excluded since these conditions are not associated with abnormal findings on routine hemoglobin electrophoresis and except for mild microcytosis, are generally not associated with other hematologic abnormalities. This interpretation of hemoglobin electrophoresis results is based on the presumption that this patient has not been recently transfused with red blood cells. Recommend repeat CBC and hemoglobin electrophoresis in 3 - 4 months following completion of a course of iron therapy for thorough evaluation of this patient's microcytic anemia. Krystyna Roa, PhD/LH Jerman Brothers MD LAB - CHEMISTRY MARVIN MORALES Performing Organization Address City/[facility]/ZIP Co de Phone Number [address] [phone] * COPPER BLOOD (09/21/2012 5:40 PM CDT) Copper 123 72 - 166 ug/dL [facility] Comment:Detection Limit = 5 09/21/2012 5:40 PM CDT 09/21/2012 6:10 PM CDT Jerman Brothers MD LAB - CHEMISTRY MARVIN MORALES Performing Organization Address [facility] Co de Phone Number [address] [phone] * RETIC COUNT (09/21/2012 5:40 PM CDT) Reticulocyte % 1.1 0.4 - 2.5 % [facility] Comment: * PLEASE NOTE NEW REFERENCE RANGE * Reticulocyte Absolute 0.04 0.02 - 0.13 10^6/uL [facility] Comment: * PLEASE NOTE NEW REFERENCE RANGE * Venous blood specimen (specimen) 09/21/2012 5:40 PM CDT 09/21/2012 5:54 PM CDT Jerman Brothers MD LAB - HEMATOLOGY MARIOLA CHENG Performing Organization Address [facility] Co de Phone Number [address] [phone] * (ABNORMAL) IRON BLOOD (09/21/2012 5:40 PM CDT) Only the most recent of2 resultswithin the time period is included. Iron 25(L) 40 - 150 mcg/dL [facility] 09/21/2012 5:40 PM CDT 09/21/2012 5:55 PM CDT Jerman Brothers MD LAB - CHEMISTRY MARVIN MORALES Performing Organization Address [facility] de Phone Number [address] [phone] * (ABNORMAL) CK BLOOD (09/21/2012 5:40 PM CDT) CK Total 998(H) 30 - 200 Units/L [facility] Serum 09/21/2012 5:40 PM CDT 09/21/2012 9:10 PM CDT Jerman Brothers MD LAB - CHEMISTRY MARVIN MORALES Performing Organization Address [facility] Co de Phone Number [address] [phone] * (ABNORMAL) TSH (09/21/2012 5:40 PM CDT) TSH 66.606(H) 0.350 - 4.940 uIU/mL [facility] Venous blood specimen (specimen) 09/21/2012 5:40 PM CDT 09/21/2012 5:54 PM CDT Jerman Brothers MD LAB - CHEMISTRY MARVIN MORALES Performing Organization Address [facility]/ZIP Co de Phone Number [address] [phone] * (ABNORMAL) T4 FREE (09/21/2012 5:40 PM CDT) T4 Free 0.4(L) 0.7 - 1.5 ng/dL [facility] Venous blood specimen (specimen) 09/21/2012 5:40 PM CDT 09/21/2012 5:54 PM CDT Jerman Brothers MD LAB - CHEMISTRY MARVIN MORALES Performing Organization Address [facility] Co de Phone Number [address] [phone] * (ABNORMAL) FERRITIN (09/21/2012 5:40 PM CDT) Ferritin 3(L) 13 - 204 ng/mL [facility] Venous blood specimen (specimen) 09/21/2012 5:40 PM CDT 09/21/2012 5:55 PM CDT Jerman Brothers MD LAB - CHEMISTRY MARVIN MORALES Performing Organization Address [facility] Co de Phone Number [address] [phone] * CT HEAD WO CONTRAST (09/21/2012 9:51 AM CDT) Anatomical Region Laterality Modality Head Other Impressions 09/21/2012 12:29 PM CDT IMPRESSION: 1. No acute intracranial process. These findings were discussed with Dr. Ozuna by Dr. Shirley on 09/21/2012 at 10:08 AM. This report was approved by Wale Shirley M.D. on 09/21/2012 12:29 PM . I, Dr. MANUELITO BALDERAS M.D. have personally reviewed and interpreted this examination/study. This report was electronically signed by MANUELITO BALDERAS M.D. on 09/21/2012 12:29 PM . Narrative 09/21/2012 12:29 PM CDT EXAMINATION: Computed tomography (CT) of the head without contrast HISTORY: Disorientation TECHNIQUE: CT of the head was performed without contrast according to standard protocol. FINDINGS: No prior study is available for comparison. No acute intra- or extra-axial fluid collections are identified. The ventricles are of normal size, shape, and morphology. The basilar cisterns are patent. No mass effect or midline shift is seen. The carey-white matter differentiation is normal. Other than mild mucosal thickening of the left maxillary sinus, the visualized portions of the orbits, paranasal sinuses, and mastoids appear normal. No acute fracture is identified. Procedure Note Manuelito Balderas MD - 06/16/2017 EXAMINATION: Computed tomography (CT) of the head without contrast HISTORY: Disorientation TECHNIQUE: CT of the head was performed without contrast according tostandard protocol. FINDINGS: No prior study is available for comparison. No acute intra- or extra-axial fluid collections are identified. Theventricles are of normal size, shape, and morphology. The basilar cisternsare patent. No mass effect or midline shift is seen. The carey-white matterdifferentiation is normal. Other than mild mucosal thickening of the left maxillary sinus, the visualizedportions of the orbits, paranasal sinuses, and mastoids appear normal. Noacute fracture is identified. IMPRESSION IMPRESSION: 1. No acute intracranial process. These findings were discussed with Dr. Ozuna by Dr. Shirley on09/21/2012 at 10:08 AM. This report was approved by Wale Shirley M.D. on 09/21/2012 12:29 PM. I, Dr. MANUELITO BALDERAS M.D. have personally reviewed and interpreted thisexamination/study. This report was electronically signed by MANUELITO BALDERAS M.D. on 09/21/201212:29 PM . Nick Casiano MD CT ORDERABLES * D-DIMER (09/21/2012 9:00 AM CDT) D-Dimer Quantitative 0.27 0.0 - 0.50 mcg/mL [facility] Comment: In the absence of clinical symptoms, a value less than or equal to 0.5 reliably excludes the diagnosis of acute PE/DVT Plasma specimen (specimen) 09/21/2012 9:00 AM CDT 09/21/2012 9:13 AM CDT Edward Mccullough MD LAB - COAGULATION OR DERABLES [address] [phone] * XR CHEST 2VW (09/21/2012 7:59 AM CDT) Anatomical Region Laterality Modality Chest Other Impressions 09/21/2012 6:00 PM CDT Impression: 1. No acute pulmonary disease. 2. Cardiomegaly. Report dictated by Wale Shirley DO (vice president safety). This report was approved by Wale Shirley M.D. on 09/21/2012 5:04 PM . I, Dr. LIZBETH VILCHIS M.D. have personally reviewed and interpreted this examination/study. This report was electronically signed by LIZBETH VILCHIS M.D. on 09/21/2012 6:00 PM . Narrative 09/21/2012 6:00 PM CDT Examination: XR CHEST PA AND LATERAL Date: 09/21/2012 7:45 AM History: chest heaviness Findings: No prior study is available for comparison. The lungs are free of focal consolidation bilaterally. No pneumothorax or pleural effusion is identified. The mediastinal silhouette is within normal limits. The heart is enlarged. The visualized osseous structures appear intact. Procedure Note Lizbeth Vilchis MD - 06/16/2017 Examination: XR CHEST PA AND LATERAL Date: 09/21/2012 7:45 AM History: chest heaviness Findings: No prior study is available for comparison. The lungs are free of focal consolidation bilaterally. No pneumothorax orpleural effusion is identified. The mediastinal silhouette is withinnormal limits. The heart is enlarged. The visualized osseous structuresappear intact. IMPRESSION Impression: 1. No acute pulmonary disease. 2. Cardiomegaly. Report dictated by Wale Shirley DO (vice president safety). This report was approved by Wale Shirley M.D. on 09/21/2012 5:04 PM . I, Dr. LIZBETH VILCHIS M.D. have personally reviewed and interpreted thisexamination/study. This report was electronically signed by LIZBETH VILCHIS M.D. on 09/21/20126:00 PM . Nick Casiano MD DIAGNOSTIC IMAGING O RDERABLES * (ABNORMAL) URINALYSIS W/MICROSCOPIC NO CULTURE (09/21/2012 7:50 AM CDT) Color UA YELLOW STRW,YELLOW [facility] Clarity UA CLEAR CLEAR [facility] Specific [place] Urine 1.015 1.001 - 1.030 [facility] pH UA 7.0 5.0 - 8.0 [facility] Protein UA NEGATIVE <20 mg/dL [facility] Glucose UA NEGATIVE NEGATIVE mg/dL [facility] Ketones NEGATIVE NEGATIVE mg/dL [facility] Bilirubin UA NEGATIVE NEGATIVE mg/dL [facility] Blood UA NEGATIVE NEGATIVE [facility] Nitrite UA NEGATIVE NEGATIVE [facility] Leukocyte Esterase NEGATIVE NEGATIVE [facility] Urobilinogen UA < 2.0 <2.0 mg/dL [facility] RBC Urine 1 0 - 8 /HPF [facility] WBC Urine < 1 0 - 2 /HPF [facility] Bacteria Urine RARE <OCCASIONAL /HPF [facility] Squamous Epithelial Cells UA 3(H) 0 - 1 /HPF [facility] Mucus Urine OCCASIONAL( A) NONE SEEN /LPF [facility] Urine specimen (specimen) URINE SPECIMEN OBTAINED BY CLEAN CATCH PROCEDURE / Unknown 09/21/2012 7:50 AM CDT 09/21/2012 7:58 AM CDT Edward Mccullough MD LAB - URINALYSIS ORD ERABLES [address] [phone] * DRUG ABUSE PANEL 10-20+ETHANOL URINE NO CONFIRM (09/21/2012 7:50 AM CDT) Amphetamines NEGATIVE NEGATIVE [facility] Comment:Positive Cutoff: >=1 000 ng/mL Barbiturate NEGATIVE NEGATIVE [facility] Comment:Positive Cutoff: >=2 00 ng/mL Benzodiazepine Screen Urine NEGATIVE NEGATIVE [facility] Comment:Positive Cutoff: >=2 00 ng/mL Opiates NEGATIVE NEGATIVE [facility] Comment:Positive Cutoff: >=3 00 ng/mL Cocaine Metabolite Urine NEGATIVE NEGATIVE [facility] Comment:Positive Cutoff: >=3 00 ng/mL Phencyclidine Screen Urine NEGATIVE NEGATIVE [facility] Comment:Positive Cutoff: >=2 5 ng/mL Cannabinoids Screen Urine NEGATIVE NEGATIVE [facility] Comment:Positive Cutoff: >=5 0 ng/mL Methadone NEGATIVE NEGATIVE [facility] Comment:Positive Cutoff: >=3 00 ng/mL Note SEE NOTE [facility] Comment: Positive results should be confirmed by another generally accepted non-immunological method such as gas chromatography or mass spectrometry. Toxicology testing by the [facility] is an aid to medical diagnosis and treatment of patients. No documented chain of custody was maintained. Results are intended to be used for clinical purposes only. Note SEE NOTE [facility] Comment: The UTOX Panel does not screen for Propoxyphene, Meprobamate, Carisoprodol, Trazodone, oybb-emo-pzyldbp medications and/or volatiles (Acetone, Isopropanol, Methanol, Ethylene Glycol). Ethanol, Salicylate, Acetaminophen, Tricyclic Antidepressants and several therapeutic drugs may be individually assayed in a serum specimen. Urine specimen (specimen) URINE SPECIMEN OBTAINED BY CLEAN CATCH PROCEDURE / Unknown 09/21/2012 7:50 AM CDT 09/21/2012 7:58 AM CDT Edward Mccullough MD LAB - URINE CHEMISTR Y ORDERABLES Performing Organization Address City/State/[facility] Co de Phone Number [address] [phone] * (ABNORMAL) CK + CKMB PANEL (09/21/2012 7:50 AM CDT) CK Total 1111(H) 30 - 200 Units/L [facility] CK-MB 2.2 0.0 - 6.6 ng/mL [facility] Comment: CKMB Reference Range 6.6 ng/mL or greater = Positive For indeterminate results, additional specimen(s) for CKMB, drawn at least one hour apart, may aid diagnosis. Positive CKMB results should be clinically interpreted in combination with total CK serum level. In patients without cardiac muscle damage, CKMB (ng/mL) is generally <2.5% of total CK enzyme activity (Units/L). Virtually all patients with acute myocardial infarction have CKMB values 6.6 ng/mL or greater for samples drawn at least 8-12 hours after the onset of chest pain. CKMB values generally remain elevated for 2-3 days. 09/21/2012 7:50 AM CDT 09/21/2012 7:57 AM CDT Edward Mccullough MD LAB - CHEMISTRY [facility] Organization Address City/State/ZIP Co de Phone Number [address] [phone] Care Teams Slitter Operator Relationship Specialty Start Date End Date Lorenzo Hughes DO PCP - General 10/15/17
--- OUTSIDE RECORDS SUMMARY | 2024-05-04 12:02 | XMS_ITS | Data Portability ---
Author Organization [facility] Address [address] [place] [address] Assessment Encounter Date Assessment Date Assessment LastModified by Organization Details LastModified Time 12/05/2015 12/05/2015 Stable. Normal exam except obesity [email or web address] Not available 12/05/2015 19:14:18 Plan of Treatment Reminders Order Date Submit Date Provider Last Modified By Organization Details Last Modified Time Details Appointments None record ed. Lab CT + NG + TV, DNA, urine/ swab 2016 017 [employer] [facility], [address] [place] [address], [address], [place], [address], 7 14:26:54 wet mount, vagina l 2016 017 [employer] In-Office Order, Internal Use Only DO Not Attach Compendium DO Not Attach Compendium, Do Not Delete/merge, [id number] 7 14:18:09 davey wet prep 2016 017 [employer] In-Office Order, Internal Use Only DO Not Attach Compendium DO Not Attach Compendium, Do Not Delete/merge, [id number] 7 14:18:09 urinal ysis, dipsti ck 2016 017 [employer] In-Office Order, Internal Use Only DO Not Attach Compendium DO Not Attach Compendium, Do Not Delete/merge, [id number] 7 14:18:08 pap, IG + CT/NG + HR HPV 2016 017 [facility], [address] [facility] [facility] [address], [address], [place], [address], 7 14:18:09 HIV 1+2 AB + HIV 1 p24 Ag, qualit ative immuno assay, serum 2016 017 [facility], [address] [facility] [facility] [address], [address], [place], [address], 7 14:18:08 hepati tis panel (A+B+C ), acute, serum 2016 017 [employer] [facility], [address] [facility] [facility] [address], [address], [place], [address], 7 14:18:08 RPR (rapid plasma reagin ), serum 2016 017 [employer] [facility], [address] [facility] [facility] [address], [address], [place], [address], 7 14:18:08 hsv (1+2) igg, serum 2016 017 [facility], [address] [facility] [address], [address], [place], [address], 7 14:18:08 Referral None record ed. Procedures None record ed. Surgeries None record ed. Imaging MAMMO, diagno stic, digita l, bilate ral 2016 017 [facility], [address], [address], [place], [address], 7 13:15:55 Medication Orders acyclo vir 400 mg tablet 2016 017 [facility], [address], [place], [id number], 7 14:26:54 ceftri axone 250 mg soluti on for inject ion [address] [facility], [address], [place], [id number], 7 14:21:36 metron idazol e 500 mg tablet [address] [facility], [address], [place], [id number], 7 14:18:08 flucon azole 150 mg tablet [address] [facility], [address], [place], [id number], 7 14:18:08 Tubers ol 5 tub. unit/0 .1 mL intrad ermal inject ion soluti on 2015 016 [email or web address] Not available 7 17:36:06 Patient TargetsNo targets recorded. Patient Instructions Encounter Date Encounter Id Patient Instructions Last Modified By Organization Details Last Modified Time 08/16/2016 [id number] exposure to sexually transmitted infections: care instructions jstewartborders Not available 08/16/2016 14:18:08 trichomoniasis: care instructions jstewartborders Not available 08/16/2016 14:18:08 breast lumps: care instructions jstewartborders Not available 08/16/2016 14:18:08 09/03/2016 [id number] abnormal Pap test: care instructions ksykesma Not available 09/03/2016 15:03:08 colposcopy: before your procedure [email or web address] Not available 09/03/2016 15:03:08 exposure to sexually transmitted infections: care instructions jstewartborders Not available 09/03/2016 14:26:54 Reason for Referral None Reported. Results Created Date Observation Date Name Description Value Unit Range Abnormal Flag Note LastModifiedBy Organization Detail LastModifiedTime 08/17/19 17 08/16/2016 davey wet prep Yeast positi ve Not Available In-Office Order Internal Use Only DO Not Attach Compendium DO Not Attach Compendium, Do Not Delete/merge, [id number] 08/16/2016 12:21:42 08/17/19 17 08/16/2016 wet mount diana Clue Cells positi ve Not Available In-Office Order Internal Use Only DO Not Attach Compendium DO Not Attach Compendium, Do Not Delete/merge, 08/16/2016 12:21:38 08/17/19 17 08/16/2016 wet diana rider Trichomonas positi ve Not Available In-Office Order Internal Use Only DO Not Attach Compendium DO Not Attach Compendium, Do Not Delete/merge, 08/16/2016 12:21:38 08/17/19 17 08/16/2016 urina lysis , dipst ick Leukocytes Trace Not Available In-Offi ce Order Internal Use Only DO Not Attach Compendium DO Not Attach Compendium, Do Not Delete/merge, 08/16/2016 11:12:31 08/17/19 17 08/16/2016 urina lysis , dipst ick Nitrite negati ve Not Available In-Office Order Internal Use Only DO Not Attach Compendium DO Not Attach Compendium, Do Not Delete/merge, 08/16/2016 11:12:31 08/17/19 17 08/16/2016 urina lysis , dipst ick Urobilinogen 1 Not Available In-Of fice Order Internal Use Only DO Not Attach Compendium DO Not Attach Compendium, Do Not Delete/merge, 08/16/2016 11:12:31 08/17/19 17 08/16/2016 urina lysis , dipst ick Protein Negati ve Not Available In-Office Order Internal Use Only DO Not Attach Compendium DO Not Attach Compendium, Do Not Delete/merge, 08/16/2016 11:12:31 08/17/19 17 08/16/2016 urina lysis , dipst ick pH 7.0 Not Available In-Office Order Internal Use Only DO Not Attach Compendium DO Not Attach Compendium, Do Not Delete/merge, 08/16/2016 11:12:08/17/19 17 08/16/2016 urina lysis , dipst ick Blood Non-He molyze d: Trace Not Available In-Office Order Internal Use Only DO Not Attach Compendium DO Not Attach Compendium, Do Not Delete/merge, 08/16/2016 11:12:08/17/19 17 08/16/2016 urina lysis , dipst ick Specific Gravelly 1.025 Not Available In-Off ice Order Internal Use Only DO Not Attach Compendium DO Not Attach Compendium, Do Not Delete/merge, 08/16/2016 11:12:08/17/19 17 08/16/2016 urina lysis , dipst ick Ketone Negati ve Not Available In-Office Order Internal Use Only DO Not Attach Compendium DO Not Attach Compendium, Do Not Delete/merge, 08/16/2016 11:12:08/17/19 17 08/16/2016 urina lysis , dipst ick Bilirubin Negati ve Not Available In-Office Order Internal Use Only DO Not Attach Compendium DO Not Attach Compendium, Do Not Delete/merge, 08/16/2016 11:12:08/17/19 17 08/16/2016 urina lysis , dipst ick Glucose Negati ve Not Available In-Office Order Internal Use Only DO Not Attach Compendium DO Not Attach Compendium, Do Not Delete/merge, 08/16/2016 11:12:08/17/19 17 08/16/2016 urina lysis , dipst ick Appearance Clear Not Available In-Offi ce Order Internal Use Only DO Not Attach Compendium DO Not Attach Compendium, Do Not Delete/merge, 08/16/2016 11:12:08/17/1908/16/2016 urina lysis , dipst ick Color Yellow Not Available In-Office Order Internal Use Only DO Not Attach Compendium DO Not Attach Compendium, Do Not Delete/merge, 08/16/2016 11:12:08/17/19 17 08/17/2016 HIV (1+2) Ab scree n, serum HIV 4TH generation Non Reacti ve non reacti ve Not Available [facility] (Lab) [address] [place], [address], 08/17/2016 07:13:30 08/17/19 17 08/17/2016 hepat itis panel (A+B+ C), acute , serum hep A Ab, IgM Negati ve negati ve Not Available [facility] (Lab) [address] [place], [address], 08/17/2016 11:26:19 08/17/19 17 08/17/2016 hepat itis panel (A+B+ C), acute , serum HBsAg screen Negati ve negati ve Not Available [facility] (Lab) [address] [place], [address], 08/17/2016 11:26:19 08/17/19 17 08/17/2016 hepat itis panel (A+B+ C), acute , serum hep B core Ab, IgM Negati ve negati ve Not Available [facility] (Lab) [address] [facility], [place], [address], 08/17/2016 11:26:19 08/17/19 17 08/17/2016 hepat itis panel (A+B+ C), acute , serum hep C virus Ab 0.2 s/co_ ratio 0.0-0. 9 Negat stephanie: < 0.8 Indet ermin ate: 0.8 - 0.9 Posit stephanie: > 0.9 . The CDC recom mends that a posit stephanie HCV antib deborah resul t be follo wed up with a HCV Nucle ic Acid Ampli ficat ion test (5507 13). Not Available [facility] (Lab) [address] [place], [address], 08/17/2016 11:26:19 08/17/19 17 08/17/2016 RPR (rapi d plasm a reagi n), titer , serum RPR Non Reacti ve non reacti ve Not Available [facility] (Lab) [address] [place], [address], 08/17/2016 11:26:20 08/17/19 17 08/17/2016 hsv (1+2) igg, serum hsv 1 IgG type specific 19.80 index 0.00-0 .90 high Negat stephanie <0.91 Equiv ocal 0.91 - 1.09 Posit stephanie >1.09 Note: Negat stephanie indic ates no antib odies detec sada to HSV-1 . Equiv ocal may sugge st early infec tion. If clini lois appro priat e, retes t at later date. Posit stephanie indic ates antib odies detec sada to HSV-1 . Not Available [facility] (Lab) [address] [place], [address], 08/17/2016 11:26:23 08/17/19 17 08/17/2016 hsv (1+2) igg, serum hsv 2 IgG type specific <0.91 index 0.00-0 .90 Negat stephanie <0.91 Equiv ocal 0.91 - 1.09 Posit stephanie >1.09 Note: Negat stephanie indic ates no antib odies detec sada to HSV-2 . Equiv ocal may sugge st early infec tion. If clini lois appro priat e, retes t at later date. Posit stephanie indic ates antib odies detec sada to HSV-2 . Not Available [facility] (Lab) [address] [place], [address], 08/17/2016 11:26:23 08/17/19 17 08/20/2016 pap, IG + CT/NG + HR HPV diagnosis: SPRCS NEGAT STEPHANIE FOR INTRA EPITH ELIAL LESIO N AND MALIG DINA . TRICH OMONA S VAGNILAY CASTILLO IS PRESE NT. Perfo rmed at: WB Not Available [facility] (Lab) [address] [facility], [place], [address], 08/20/2016 12:12:49 08/17/19 17 08/20/2016 pap, IG + CT/NG + HR HPV specimen adequacy: SPRCS Satis facto ry for evalu ation . Endoc ervic al and/o r squam ous metap lasti c cells (endo cervi nisreen compo nent) are prese nt. Perfo rmed at: WB Not Available [facility] (Lab) [address] [facility], [place], [address], 08/20/2016 12:12:49 08/17/19 17 08/20/2016 pap, IG + CT/NG + HR HPV performed by: [facility] Sophy [place] ond, Cytot echno logis t (ASCP ) Perfo rmed at: WB Not Available [facility] (Lab) [address] [facility], [place], [address], 08/20/2016 12:12:49 08/17/19 17 08/20/2016 pap, IG + CT/NG + HR HPV Pap smear, 1 slide . Perfo rmed at: WB Not Available [facility] (Lab) [address] [facility], [place], [address], 08/20/2016 12:12:49 08/17/19 17 08/20/2016 pap, IG + CT/NG + HR HPV pathologist provided ICD10 [facility] R87.5 Perfo rmed at: WB Not Available [facility] (Lab) [address] [facility], [place], [address], 08/20/2016 12:12:49 08/17/19 17 08/20/2016 pap, IG + CT/NG + HR HPV note: PAPSMR The Pap smear is a scree tangela test desig sylwia to aid in the detec tion of az ligna nt and malig nant condi tions of the uteri ne cervi x. It is not a diagn ostic proce dure and shoul d not be used as the sole means of detec ting cervi nisreen cance r. Both false -posi tive and false -nega tive repor ts do occur . . Perfo rmed at: WB Not Available [facility] (Lab) [address] [facility], [place], [address], 08/20/2016 12:12:49 08/17/19 17 08/20/2016 pap, IG + CT/NG + HR HPV test methodology: IGLPAP This liqui d based ThinP rep(R ) pap test was laura dao with the use of an image guide star chapa Perfo rmed at: WB Not Available [facility] (Lab) [address] [facility], [place], [address], 08/20/2016 12:12:49 08/17/19 17 08/20/2016 pap, IG + CT/NG + HR HPV HPV, high-risk Positi ve negati ve abnormal This high- risk HPV test detec ts thirt een high- risk types (16/1 8/31/ 33/35 /39/4 /51/ 52/56 /58/5 ) witho ut diffe renti ation . . Perfo rmed at: =G Not Available [facility] (Lab) [address] [facility], [place], [address], 08/20/2016 12:12:49 08/17/19 17 08/20/2016 pap, IG + CT/NG + HR HPV chlamydia, nuc. acid Negati ve negati ve Perfo rmed at: =G Not Available [facility] (Lab) [address] [facility], [place], [address], 08/20/2016 12:12:49 08/17/19 17 08/20/2016 pap, IG + CT/NG + HR HPV gonococcus, nuc. acid amp Negati ve negati ve Perfo rmed at: =G Not Available [facility] (Lab) [address] [facility], [place], [address], 08/20/2016 12:12:49 09/04/19 17 09/06/2016 CT + NG + TV, DNA, urine /swab chlamydia by JOE Negati ve negati ve Not Available [facility] ([facility]) [address] [place], [address], 09/06/2016 07:48:01 09/04/19 17 09/06/2016 CT + NG + TV, DNA, urine /swab gonococcus by JOE Negati ve negati ve Not Available [facility] ([facility]) [address] [place], [address], 09/06/2016 07:48:01 09/04/19 17 09/06/2016 CT + NG + TV, DNA, urine /swab trich vag by JOE Negati ve negati ve Not Available [facility] (Lab) [address] [place], [address], 09/06/2016 07:48:01 11/29/19 16 11/28/2015 XR, hip + pelvi s, unila teral No observ ation record ed. [facility] (Imaging) [address] [place], [address], 11/29/2015 09:01:38 03/27/19 17 03/26/2016 XR, chest , 2 view No observ ation record ed. [facility] [address] [place], [address], 03/27/2016 21:04:31 05/15/19 17 05/14/2016 CT, brain , w/o contr ast No observ ation record ed. [address] (Imaging) [address] [place], [address], 05/16/2016 22:06:28 05/15/19 17 05/14/2016 XR, chest , 2 view No observ ation record ed. [address] [place], [address], 05/16/2016 22:06:28 Result Notes None recorded. Problems Name Problem SNOMED Code Status Onset Date Resolution Date Notes Provider Name and Address Organization Details Recorded Time Hypothyroidi sm 73812856 Active Samir Romero MD Attn: Accounting,[address] [facility], [place], [address], [facility] 6 19:14:29 Migraine 17356860 Active 2016 Jolanta Kaur MA null, [place] - [facility] 7 11:15:46 Problem Notes None recorded. Procedures Surgical History Date Name Laterality Status Provider Name and Address Organization Details Recorded Time 06/30/19 10 Caesarean Section completed Jolanta Kaur MA [facility] 08/16/2016 11:20:59 10/24/19 07 Caesarean Section completed Jolanta Kaur MA [facility] 08/16/2016 11:20:39 Fth/gft fr s/a/l 20 sq cm/< completed Jolanta Kaur MA [facility] 08/16/2016 11:21:25 Imaging Results Imaging Date Name Status LastModified by Organiz ation Details LastModified Time 11/28/2015 XR, hip + pelvis, unilateral completed [facility] (Imaging) [address] [place], [address], 11/29/2015 09:01:38 03/26/2016 XR, chest, 2 view completed [facility] [address] [place], [address], 03/27/2016 21:04:31 05/14/2016 CT, brain, w/o contrast completed [address] (Imaging) [address] [place], [address], 05/16/2016 22:06:28 05/14/2016 XR, chest, [address] [place], [address], 05/16/2016 22:06:28 Procedure Notes None recorded. Medical Equipment None Reported. Allergies Allergen ID Allergen Name Allergen Category Reaction Reaction Severity Criticality Documentation Date Start Date Code Code System Note Provider Name and Address Organization Details Recorded Time 85116 Substance with sulfonami de structure and antibacte rial mechanism of action (substanc e) medicatio n nausea moderate Not available 12/05/2015 74611 9556 SNOMED Not Available Not Available Not Available Medications Name Sig Start Date Stop Date Status Note LastModified by Organization Details LastModified Time cyclobenzapr ine 10 mg tablet active Not Available Not Available Not Available fluconazole 150 mg tablet Take 1 tablet as needed by oral route after meals for 1 day. 2016 active Not Available Not Available Not Avai lable levothyroxin e 300 mcg tablet Take 1 tablet every day by oral route. active Not Available Not Available No t Available hydrocodone 5 mg-acetamino phen 325 mg tablet active Not Available Not Available Not Available Tubersol 5 tub. unit/0.1 mL intradermal injection solution Take by intradermal route. 2015 active Not Available Not Available Not Avai lable ceftriaxone 250 mg solution for injection Take 250 mg as needed by injection route as needed for 1 day. 2016 active Not Available Not Available Not Avai lable metronidazol e 500 mg tablet TAKE 1 TABLET BY MOUTH EVERY 12 HOURS WITH MEALS FOR 7 DAYS active Not Available Not Available N ot Available acyclovir 400 mg tablet Take 1 tablet twice a day by oral route with meals for 90 days. 2016 active Not Available Not Available Not Avai lable tramadol 50 mg tablet active Not Available Not Available No t Available levothyroxin e 100 mcg tablet active Not Available Not Available Not Available doxycycline monohydrate 100 mg capsule active Not Available Not Available Not Available ferrous sulfate 325 mg (65 mg iron) tablet active Not Available Not Available Not Available levothyroxin e 150 mcg tablet active Not Available Not Available Not Available gabapentin 300 mg capsule active Not Available Not Available Not Available levothyroxin e 200 mcg tablet TAKE 1 TABLET BY MOUTH EVERY DAY active Not Available Not Available No t Available naproxen 500 mg tablet active Not Available Not Available No t Available Vitals Date Recorded Heart rate Body mass index (BMI) Body height Body weight Respiratory rate Body temperature Systolic blood pressure Diastolic blood pressure Provider Name and Address Organization Details Last Updated DateTime 6 78 /min 53.7 kg/m2 165.1 cm 019816. 48241 g 20 /min 99.5 [degF] 142 mm[Hg] 84 mm[Hg] Georgia Chino MA [place] - [facility] 6 18:54:00 Date Recorded Body height Body weight Body mass index (BMI) Systolic blood pressure Diastolic blood pressure Provider Name and Address Organization Details Last Updated DateTime 08/16/2016 165.1 cm 710681.3 7 g 52.9 kg/m2 132 mm[Hg] 86 mm[Hg] Jolanta Kaur MA [facility] 7 11:25:48 Social History None recorded. Functional Status None recorded. Mental Status None recorded. Family History Relationship Description Onset Age of this Age Resolved Age Notes LastModified by Organization Details LastModified Time Mother Hypertensive disorder mathew Not available 2016 11:18:27 Mother Asthma mathew Not available 0 08/16/2016 11:18:36 Mother Heart disease 56 56 [email or web address] Not available 2016 11:18:55 Medical History Condition Response Coronary Artery Disease N Other N High Blood Pressure N Atrial Fibrillation N Thyroid Problems Y Kidney or Bladder Problems N GI Problems N Depression N COPD N Blood Clots N Skin Problems N Anemia Y Heart Attack (CO) N Anxiety Disorder N Diabetes N Muscle, Joint, or Bone Problems Y Seizures/Epilepsy N Acid Reflux (GERD) N Cancer N Stroke N Asthma N Allergies Y High Cholesterol N Hepatitis N Liver Disease N Headaches N Osteoporosis N Heart Failure N Gynecological History Statement/Question Response Flow Heavy On BCP's at Conception? N STIs/STDs N Duration of Flow (days) 9 Most Recent Mammogram Age at Menarche 12 Current Control Method Tubal Ligat ion Age at First Child 31 Frequency of Cycle (Q days) 30 Sexually Active? N Menses Monthly Y Sexual Problems? N LMP Approximate Obstetrics History GPAL:G 2 P 2 0 0 2 Type Value Full Term 2 Living 2 Total 2 Immunizations Vaccine Type Date Status Note Provider Nam e and Address Organization Details Recorded Time Hep A, adult 11/17/2005 completed Samir siddiqi MD Attn: Accounting[address] [place], [address], [facility] 12/05/2015 19:08:57 Past Encounters Encounter ID Performer Location Encounter Start Date Encounter Closed Date Diagnosis/Indication Diagnosis SNOMED-CT Code Diagnosis ICD10 Code Diagnosis Note [id number] [facility] (Adult/Fa m Med) [address] [place] [address] 12/05/2015 18:44:19 12/07/2015 10:46:24 Adult health examination 603720093 Z00.00 Hypothyroidism 14243107 E03.9 [id number] [facility] [address] [place] [address] 08/16/2016 11:06:57 08/30/2016 14:01:54 Gynecologic examination 43211836 Z01.411 Venereal d isease screening 698603197 Z11.3 with NO sex partner since hx. of infidelity with @ least X 3 other females. High risk sexual behavior 228235584 Z72.51 discussed safe sex & condom use abstaining since . refused condoms. Smoker 49898042 F17.201 Trying to give up smoking 668647161 Z72.0 as of difficult but doing well ; also lost X 20 lbs per patient. Breast lump 52485116 N63 Tenderness on needle biopsy r\t mass 10 cm @ [facility]. c\o bilateral breast discharge duration since 2009 dx. with some type of epidermal issue per T. Eleno @ [facility]. Infection by Trichomonas 92677756 A59.9 previous sex partner no coitus since . Lower abdominal pain 545 66261 R10.30 c\o pelvic pain > 2 weeks r\o possible PID r\t last coitus . Exposure t o sexually transmissible disorder 528439215 Z20.2 [id number] [facility] [address] [place] [address] 09/03/2016 12:20:43 09/24/2016 12:32:21 Exposure to sexually transmissible disorder 333441392 Z20.2 dx. with current sex partner of X 3 years; discussed partner notificati on safe sex & condom use Herpes sim plex type 1 infection 214234145 B00.9 Abnormal c ervical Papanicolaou smear 972255415 R87.619 WNL pap with + HPV dx. advised of need for re-pap in 6 mo. . Health Concerns Section Related Observation LastModified by Organization Detai ls LastModified Time None Recorded Concern Status LastModified by Organization Details LastModified Time None Recorded Advance Directives Directive None Recorded Payers Encounter Date Sequence Insurance Name Policy Number Policy Whitt Covered Member ID Whitt Member ID Guarantor Name 12/05/2015 1 [facility] PRIOR TO 09/15/2020 (MEDICAID REPLACEMENT - HMO) Yolie Wylie [id number] Yolie Wylie 08/16/2016 1 [facility] PRIOR TO 09/15/2020 (MEDICAID REPLACEMENT - HMO) Yolie Wylie [id number] Yolie Wylie 09/03/2016 1 [facility] PRIOR TO 09/15/2020 (MEDICAID REPLACEMENT - HMO) Yolie Wylie [id number] Yolie Wylie Notes Date Note Type Note Provider Name and Address Organization Details Recorded Time 12/05/2015 text/html Patient tolerating meds well. He/She has no acute illness. 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 Samir Romero MD Attn: Accounting[address] [place], [address], [facility] 12/05/2015 19:16:02 OBGyn Episode No OBEpisode recorded.
--- OUTSIDE RECORDS SUMMARY | 2024-05-04 12:02 | XMS_ITS | Clinical Summary ---
Author Organization [facility] Care Team Providers Care Waiver Analyst Name Role Phone Unavailable Primary Care Provider Unavailabl e Social History Tobacco Use Types Packs/Day Years Used Date Smoking Tobacco: Never Assessed Comments Unknown Sex and Gender Information Value Date Recorded Sex Assigned at Not on file Legal Sex Female 1:37 PM PIECE HAND Gender Identity Not on file Sexual Orientation Not on file Plan of Treatment Health Maintenance Due Date Last Done Comments Hepatitis C Virus (HCV) Screening 1977 TdaP Immunization 1977 Hepatitis B Immunization (1 of 3 - 19+ 3-dose series) 1996 Pap Smear 1998 Cervical Cancer Screening (CCS) 06/14/2007 HPV/Cotest 06/14/2007 Discussion re Starting/Frequency of Mammograms 2017 Colonoscopy 2022 Colorectal Cancer Screening 2022 Influenza Immunization (#1) 2023 SARS-COV-2 Immunization ( season) 2023 09/11/2020, 08/21/2020 Respiratory Syncytial Virus (RSV) Immunization (Adult) (1 - 1-dose 75+ series) 2052 Meningococcal Immunization (ACWY) Aged Out No longer eligible b ased on patient's age to complete this topic Pneumococcal Immunization Combined Aged Out No longer eligible b ased on patient's age to complete this topic Rotavirus Immunization Aged Out No lo nger eligible based on patient's age to complete this topic
--- OUTSIDE RECORDS SUMMARY | 2024-05-04 12:02 | XMS_ITS | Referral Summary ---
Author Organization [facility] Address [address] [place] [address] Care Team Providers Care Fuse Spooler Name Role Phone Lorenzo Hughes DO Primary Care Provider [phone] Source Comments [facility],non-owned Affiliates and Associated Physician Practices is amultiple site organization consisting of ambulatory clinics and hospital sitesin [place], [place], [place] and [place]. This disclosure is being madepursuant to the Care Everywhere program and may not contain all information available regarding this patient. Last updated 17.[facility] Allergies Active Allergy Reactions Criticality Noted Date Comments Sulfa Drugs Rash Medium 09/21/2012 Medications * Be aware that medications may not be up to date on this document. Alwaysverify current medications with the patient. Medication Sig Dispensed Refills Start Date End Date Status levothyroxine (SYNTHROID) 150 MCG tablet Take 1 tablet by mouth once daily 10/13/2019 Active sertraline (ZOLOFT) 100 MG tablet Take 200 mg by mouth once daily 01/21/2021 Active cyclobenzaprine (FLEXERIL) 10 MG tablet Take 10 mg by mouth as needed 02/16/2021 Active ibuprofen (MOTRIN) 600 MG tablet Take 1 (one) tablet by mouth every 6 hours as needed for Pain 40 tablet 03/09/2021 Active docusate sodium (COLACE) 100 MG capsule Take 1 (one) capsule by mouth 2 times daily Hold for loose stools 40 capsule 03/09/2021 Active ondansetron (ZOFRAN) 4 MG tablet Take 1 (one) tablet by mouth every 6 hours as needed for Nausea/Vomiting 10 tablet 03/09/2021 Active oxyCODONE-acetaminop hen (PERCOCET) 5-325 MG tablet Take 1 (one) tablet by mouth every 6 hours as needed for Pain 10 tablet 03/24/2021 Active oxyCODONE-acetaminop hen (PERCOCET) 5-325 MG tablet Take 1 (one) tablet by mouth every 6 hours as needed for Pain 12 tablet 03/26/2021 Active Active Problems Problem Noted Date Diagnosed Date Lower abdominal pain 03/25/2021 Hypothyroidism 02/22/2020 Ischemic stroke 10/11/2019 Migraine 08/16/2016 Iron deficiency anemia 09/22/2012 Microcytic anemia 09/21/2012 Immunizations Name Administration Dates Next Due [employer] primary monoval ent 12+ yr 0.3mL Purple cap 09/11/2020,08/21/2020 HEP A VACCINE, ADULT 11/17/2005 Social History Tobacco Use Types Packs/Day Years Used Date Smoking Tobacco: Every Day Cigarettes Smokeless Tobacco: Never Tobacco Cessation:Ready to Q uit: No; Counseling Given: Yes Alcohol Use Standard Drinks/Week Comments Yes 0 (1 standard drink = 0.6 oz pur e alcohol) socially Sex and Gender Information Value Date Recorded Sex Assigned at Female 03/30/2021 11:03 AM HIM MANAGER Gender Identity Female 03/30/2021 11:03 AM HIM MANAGER Sexual Orientation Straight 03/30/2021 11 :03 AM HIM MANAGER Last Filed Vital Signs Vital Sign Reading Time Taken Comments Blood Pressure 102/51 03/26/2021 7:44 AM HIM MANAGER Pulse 76 03/26/2021 7:44 AM HIM MANAGER Temperature 36.7 C (98 F) 03/26/2021 7:44 AM HIM MANAGER Respiratory Rate 20 03/26/2021 7:44 AM HIM MANAGER Oxygen Saturation 100% 03/26/2021 7:44 AM HIM MANAGER Inhaled Oxygen Concentration - - Weight 131.5 kg (290 lb) 03/24/2021 5:17 PM HIM MANAGER Height 162.6 cm (5' 4 ) 03/24/2021 5:17 PM HIM MANAGER Body Mass Index 49.78 03/24/2021 5:17 PM HIM MANAGER Functional Status Functional Status Response Date of Assess ment Is person deaf or have serious hearing difficult y? No 10/12/2019 Is person blind or have serious difficulty seein g? No 10/12/2019 Does person have serious dif ficulty walking/climbing stairs? No 10/12/2019 Does person have difficulty dressing/bathing? No 10/12/2019 Does person have difficulty doing errands alone? No 10/12/2019 Cognitive Status Response Date of Assessm ent Does person have difficulty concentrating/remembering/making decisions? No 10/12/2019 Plan of Treatment Not on file Procedures Procedure Name Priority Date/Time Associated Diagnosis Comments GLUCOSE - POINT OF CARE Routine 03/25/2021 8:12 PM HIM MANAGER LIPID PROFILE Routine 10/12/2019 4:48 AM CDT from Last 3 Months or Most Recently Relevant to Health Maintenance Results * (ABNORMAL) GLUCOSE - POINT OF CARE (03/25/2021 8:12 PM HIM MANAGER) Pathologist [facility] [place] Glucose WB/POC 123(H) 70 - 106 mg/dL 03/25/2021 8:33 PM HIM MANAGER [facility] Specimen Type Cap Fingerstick 2021 8:33 PM HIM MANAGER [facility] Blood BLOOD SPECIMEN / Unknown 03/25/2021 8:12 PM HIM MANAGER 03/25/2021 8:33 PM HIM MANAGER Renay Cheng MD LAB - POINT OF CARE ORDERABLES [facility] [address] [place] [address] * (ABNORMAL) LIPID PROFILE (10/12/2019 4:48 AM CDT) Pathologist [facility] [place] Cholesterol Total 124 <200 mg/dL 10/12/2019 5:46 AM CDT [facility] HDL 25(L) >40 mg/dL 10/12/2019 5:46 AM CDT [facility] Comment: ATP III Classification of HDL Cholesterol: <40 mg/dL: Considered a major risk factor. >60 mg/dL: Considered a negative risk factor. LDL Calculated 80 <100 mg/dL 10/12/2019 5:46 AM CDT [facility] Comment: ATP III Classification of LDL Cholesterol: <100 mg/dL: Optimal 100 - 129 mg/dL: Near Optimal/Above Optimal 130 - 159 mg/dL: Borderline High 160 - 189 mg/dL: High >190 mg/dL: Very High Triglycerides 94 <150 mg/dL 10/12/2019 5:46 AM T [facility] Comment: ATP III Classification of Triglycerides: <150 mg/dL: Normal 150 - 199 mg/dL: Borderline High 200 - 400 mg/dL: High >500 mg/dL: Very High Blood BLOOD SPECIMEN / Unknown Lab Venipuncture / Unknown 10/12/2019 4:48 AM CDT 10/12/2019 5:19 AM CDT Ruthy Mendez MD LAB - CHEMISTRY MARVIN MORALES [facility] Organization Address City/State/ZIP Co de Phone Number [address] [address] [phone] from Last 3 Months or Most Recently Relevant to Health Maintenance Advance Directives * Full Code (Latest Code Status on File) Date Activated Date Inactivated Comments 03/25/2021 7:22 AM 03/26/2021 1:17 PM * Full Code Date Activated Date Inactivated Comments 10/11/2019 9:02 PM 10/12/2019 1:57 PM Care Teams Fuse Spooler Relationship Specialty Start Date End Date Lorenzo Hughes DO PCP - General 10/15/17
--- OUTSIDE RECORDS SUMMARY | 2024-05-04 12:02 | XMS_ITS | Encounter Summary ---
Author Organization [facility] Address [address] [place] [address] Care Team Providers Care Press Tool Maker Name Role Phone Lorenzo Hughes DO Primary Care Provider [phone] Reason for Visit * Reason Onset Date Comments Forms 03/16/2021 Encounter Details Date Type Department Care Team (Late st Contact Info) Description 03/16/2021 Telephone [facility] [address] [place] [address] Alla Arthur MD [address] [place] [address] Forms Social History Tobacco Use Types Packs/Day Years Used Date Smoking Tobacco: Every Day Cigarettes Smokeless Tobacco: Never Alcohol Use Standard Drinks/Week Comments Yes 0 (1 standard drink = 0.6 oz pur e alcohol) socially Sex and Gender Information Value Date Recorded Sex Assigned at Female 03/30/2021 11:03 AM GEAR STRAIGHTENER Gender Identity Female 03/30/2021 11:03 AM GEAR STRAIGHTENER Sexual Orientation Straight 03/30/2021 11 :03 AM GEAR STRAIGHTENER documented as of this encounter Functional Status Functional Status Response Date of [...] person have difficulty concentrating/remembering/making decisions? No 10/12/2019 documented as of this encounter Miscellaneous Notes * Telephone Encounter - Geneva Bermudez - 03/16/2021 1:25 PM CST Patient sent over forms yesterday on MyChart so she can go back to work. She's called today to follow up because her work called to see if we received them. CB# [phone] STRAIGHTENER documented in this encounter Plan of Treatment Not on file documented as of this encounter Visit Diagnoses Not on filedocumented in this encounter Care Teams Press Tool Maker Relationship Specialty Start Date End Date Lorenzo Hughes DO PCP - General 10/15/17 documented as of this encounter
--- OUTSIDE RECORDS SUMMARY | 2024-05-04 12:02 | XMS_ITS | Continuity of Care Document ---
Author Organization [facility] Address [address] [place] [address] [place] [address] Phone Care Team Providers Care Iron Miner Blasting Name Role Phone Scott Burch DO Unavailable Unavailable Advance Directives Directive Yes / No Effective Date File Name No Information Encounters Encounter Description Practice Location Reason(s) For Visit Diagnoses Date Provider Providers Copied on Encounter [facility], [address], [place], [place], [id number], [place] tel:[phone] [facility] No Information Marcin Bill. [address] [address] [facility], [place], [address], [place]. tel:[phone] Family History Family Member Type Diagnosis Age At Onset No Information Payers Payer name Insurance type Covered democrat ID Authoriza tion(s) No Information Social History Type Description Quantity Date Captured Comments Sex Female Smoking Status No Information Chief Complaint And Reason For Visit No Information Reason For Referral Reason For Referral No Information History Of Present Illness Encounter Date Complaint History Of Prese nt Illness No Information Functional Status Date Functional Assessmen t No Information Instructions Date Instruction Additional Infor mation No Information Assessments Type Assessment Date No Information Patient Care Teams Name Effective Dates (start - stop) Status Members No Information
--- OUTSIDE RECORDS SUMMARY | 2024-05-04 12:02 | XMS_ITS | Clinical Summary ---
Author Organization [facility] Address [address] [place] [address] Care Team Providers Care Deck Cadet Name Role Phone Lorenzo Hughes DO Primary Care Provider [phone] Source Comments [facility],non-owned Affiliates and Associated Physician Practices is amultiple site organization consisting of ambulatory clinics and hospital sitesin [place], [place], [place] and [place]. This disclosure is being madepursuant to the Care Everywhere program and may not contain all information available regarding this patient. Last updated 17.[facility] Allergies Active Allergy Reactions Criticality Noted Date [...] 09/21/2012 Immunizations Name Administration Dates Next Due Qnekt primary monoval ent 12+ yr 0.3mL Purple cap 09/11/2020,08/21/2020 HEP A VACCINE, ADULT 11/17/2005 Family History Medical History Relation Name Comments Asthma Daughter Status: Alive None Known Father Status: Alive Alcohol abuse Mother Status: Alive COPD - Chronic Obstructive Pulmonary Disease Mother Drug Abuse Mother Asthma Son Status: Alive Cancer - Skin, Melanoma Neg Hx Cancer - Skin, Non Melanoma Neg Hx Relation Name Status Comments Daughter Father Mother Son Social History Tobacco Use Types Packs/Day Years Used Date Smoking Tobacco: Every Day Cigarettes Smokeless Tobacco: Never Tobacco Cessation:Ready to Q uit: No; Counseling Given: Yes Alcohol Use Standard Drinks/Week Comments Yes 0 (1 standard drink = 0.6 oz pur e alcohol) socially Sex and Gender Information Value Date Recorded Sex Assigned at Female 03/30/2021 11:03 AM WATCH COMMANDER Gender Identity Female 03/30/2021 11:03 AM WATCH COMMANDER Sexual Orientation Straight 03/30/2021 11 :03 AM WATCH COMMANDER Last Filed Vital Signs Vital Sign Reading Time Taken Comments Blood Pressure 102/51 03/26/2021 7:44 AM WATCH COMMANDER Pulse 76 03/26/2021 7:44 AM WATCH COMMANDER Temperature 36.7 C (98 F) 03/26/2021 7:44 AM WATCH COMMANDER Respiratory Rate 20 03/26/2021 7:44 AM WATCH COMMANDER Oxygen Saturation 100% 03/26/2021 7:44 AM WATCH COMMANDER Inhaled Oxygen Concentration - - Weight 131.5 kg (290 lb) 03/24/2021 5:17 PM WATCH COMMANDER Height 162.6 cm (5' 4 ) 03/24/2021 5:17 PM WATCH COMMANDER Body Mass Index 49.78 03/24/2021 5:17 PM WATCH COMMANDER Plan of Treatment Health Maintenance Due Date Last Done Comments COLOGUARD (AGES 45-75) - COLON CA SCREENING 1977 COLON MONITORING 1977 COLONOSCOPY - COLON CA SCREENING 1977 CT COLONOGRAPHY - COLON CA SCREENING 1977 Colorectal Cancer Screening 1977 FIT - COLON CA SCREENING 1977 FLEX SIG - COLON CA SCREENING 1977 MAMMOGRAM 1977 HIV SCREENING 1992 HEPATITIS C SCREENING 06/09/1995 DTAP/TDAP/TD VACCINES (1 - Tdap) 1996 HEPATITIS B VACCINE (1 of 3 - 19+ 3-dose series) 1996 PNEUMOCOCCAL VACCINE (1 of 2 - PCV) 1996 COVID-19 VACCINE (3 - season) 2023 09/11/2020, 08/21/2020 INFLUENZA VACCINE (#1) 2023 01/17/2023 DEPRESSION SCREENING 03/18/2024 SCREENING FOR DIABETES 03/25/2024 2, 03/25/2021, 03/24/2021, Additional history exists LIPID TESTING 10/11/2024 10/12/2019, 09/22/2012 ZOSTER VACCINE (1 of 2) 06/14/2027 HIB VACCINE Aged Out No longer eligi ble based on patient's age to complete this topic HPV VACCINE Aged Out No longer eligi ble based on patient's age to complete this topic MENINGOCOCCAL (Group B) VACCINE Aged Out No longer eligible based on patient's age to complete this topic MENINGOCOCCAL VACCINE Aged Out No vinnie ellen eligible based on patient's age to complete this topic Procedures Procedure Name Priority Date/Time Associated Diagnosis Comments GLUCOSE - POINT OF CARE Routine 03/25/2021 8:12 PM WATCH COMMANDER LIPID PROFILE Routine 10/12/2019 4:48 AM CDT from Last 3 Months or Most Recently Relevant to Health Maintenance Results * (ABNORMAL) GLUCOSE - POINT OF CARE (03/25/2021 8:12 PM WATCH COMMANDER) Glucose WB/POC 123(H) 70 - 106 mg/dL 03/25/2021 8:33 PM WATCH COMMANDER [facility] Specimen Type Cap Fingerstick 2021 8:33 PM WATCH COMMANDER [facility] Blood BLOOD SPECIMEN / Unknown 03/25/2021 8:12 PM WATCH COMMANDER 03/25/2021 8:33 PM WATCH COMMANDER Renay Cheng MD LAB - POINT OF CARE ORDERABLES Performing Organization Address City/State/[facility] Co de Phone Number [facility] [address] [address], [place] [id number] * (ABNORMAL) LIPID PROFILE (10/12/2019 4:48 AM CDT) Cholesterol Total 124 <200 mg/dL 10/12/2019 5:46 AM [facility] HDL 25(L) >40 mg/dL 10/12/2019 5:46 AM [facility] Comment: ATP III Classification of HDL Cholesterol: <40 mg/dL: Considered a major risk factor. >60 mg/dL: Considered a negative risk factor. LDL Calculated 80 <100 mg/dL 10/12/2019 5:46 AM [facility] Comment: ATP III Classification of LDL Cholesterol: <100 mg/dL: Optimal 100 - 129 mg/dL: Near Optimal/Above Optimal 130 - 159 mg/dL: Borderline High 160 - 189 mg/dL: High >190 mg/dL: Very High Triglycerides 94 <150 mg/dL 10/12/2019 5:46 AM [facility] Comment: ATP III Classification of Triglycerides: <150 mg/dL: Normal 150 - 199 mg/dL: Borderline High 200 - 400 mg/dL: High >500 mg/dL: Very High Blood BLOOD SPECIMEN / Unknown Lab Venipuncture / Unknown 10/12/2019 4:48 AM CDT 10/12/2019 5:19 AM CDT Ruthy Mendez MD LAB - CHEMISTRY MARVIN MORALES [address] [address], [facility] [phone] from Last 3 Months or Most Recently Relevant to Health Maintenance Advance Directives * Full Code (Latest Code Status on File) Date Activated Date Inactivated Comments 03/25/2021 7:22 AM 03/26/2021 1:17 PM * Full Code Date Activated Date Inactivated Comments 10/11/2019 9:02 PM 10/12/2019 1:57 PM Care Teams Deck Cadet Relationship Specialty Start Date End Date Lorenzo Hughes DO PCP - General 10/15/17
--- OUTSIDE RECORDS SUMMARY | 2024-05-04 12:03 | XMS_ITS | Clinical Summary ---
Author Organization [facility] Address [address] [place] [address] Care Team Providers Care Editor Index Name Role Phone Unavailable Primary Care Provider Unavailabl e Allergies Active Allergy Reactions Criticality Noted Date Comments Lisinopril Cough Low 07/09/2023 Sulfa (Sulfonamide Antibiotics) Rash Low 10/16 Medications levothyroxine sodium (SYNTHROID ORAL) Take by mouth. Active levothyroxine sodium (LEVOTHROID ORAL) Take 150 mg by mouth daily. Active sertraline (ZOLOFT) 25 mg tablet Take 25 mg by mouth daily. Active amLODIPine (NORVASC) 5 mg tablet Take 5 mg by mouth daily. 04/20/2022 Active ketorolac tromethamine (TORADOL) 10 mg tablet Take 10 mg by mouth every 6 hours as needed. 09/12/2023 Active buPROPion HCL (WELLBUTRIN SR) 150 mg Sustained Release 12 hour tablet Take 150 mg by mouth 2 times daily. Active lycopene/lutein/f ruit extract (FRUIT AND VEGETABLE DAILY ORAL) Take by mouth. Juice plus- 300 g Active FERROUS SULFATE ORAL Take by mouth. Active Phentermine 37.5 mg Capsule Take 37.5 mg by mouth daily. 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); Wears contact lenses; Dry eye syndrome of both eyes 04/09/2024 External Device Data ST[facility] ABSTRACTION Provider, Abstract 03/31/2024 Telephone [facility] - [facility] Italo Foster [address] [place] [phone] Solis Kraft MD Fatigue from Last 3 Months Family History Medical History Relation Name Comments No Known Problems Brother 1 No Known Problems Brother 2 No Known Problems Brother 3 No Known Problems Child 1 No Known Problems Child 2 Diabetes Father Cancer Mother Diabetes Mother No Known Problems Sister Relation Name Status Comments Brother 1 Alive Brother 2 Alive Brother 3 Alive Child 1 Alive Child 2 Alive Father Alive Mother Sister Alive Social History Tobacco Use Types Packs/Day Years Used Date Smoking Tobacco: Every Day Cigarettes Tobacco Cessation:Ready to Q uit: Not Asked; Counseling Given: Not Answered Comments:1 pack per week according to patient Alcohol Use Standard Drinks/Week Comments Yes 0 (1 standard drink = 0.6 oz pur e alcohol) socially Comments Unknown Sex and Gender Information Value Date Recorded Sex Assigned at Not on file Legal Sex Female 11:56 AM CDT Gender Identity Not on file Sexual Orientation Not on file Last Filed Vital Signs Vital Sign Reading Time Taken Comments Blood Pressure 154/82 10/14/2023 2:23 PM CDT Pulse 91 10/14/2023 2:23 PM CDT Temperature 36.6 C (97.9 F) 10/14/2023 2:20 PM CDT Respiratory Rate 18 10/14/2023 2:20 PM CDT Oxygen Saturation 97% 10/14/2023 2:20 PM CDT Inhaled Oxygen Concentration - - Weight 136.5 kg (301 lb) 10/14/2023 2:20 PM CDT Height 162.6 cm (5' 4 ) 10/14/2023 2:20 PM CDT Body Mass Index 51.67 10/14/2023 2:20 PM CDT Plan of Treatment Health Maintenance Due Date Last Done Comments Pre-Diabetes and Diabetes Screening 1977 DTAP/TDAP/TD VACCINES (1 - Tdap) 1996 HEPATITIS B VACCINES (1 of 3 - 19+ 3-dose series) 1996 CERVICAL CANCER SCREENING 06/14/2007 COLORECTAL SCREENING 2022 Colorectal Cancer Screening 2022 FIT-DNA Q 3 years 2022 FIT/FOBT Q 1 year 2022 Flex Sig/CT Colonography Q 5 years 2022 BREAST CANCER SCREENING 06/22/2023 06/22/19 23, 08/03/2021 INFLUENZA VACCINE (#1) 2023 HPV VACCINES Aged Out No longer eligi ble based on patient's age to complete this topic Insurance [facility] [employer]
== END 2024-05-04 09:16 | disposition home or self-care (01) ==
PROVIDERS: PCP Internal Medicine; Visit Provider Internal Medicine Endocrinology, Diabetes & Metabolism
DX: E03.9 Hypothyroidism, unspecified (principal); E21.3 Hyperparathyroidism, unspecified; E55.9 Vitamin D deficiency, unspecified; R73.03 Prediabetes; Z78.0 Asymptomatic menopausal state
CPT/HCPCS: 77080; 78070; A9500

== ENCOUNTER 2024-05-31 19:38 | Emergency (ER) | payer BC, SELFPAY ==
--- NOTE | 2024-05-31 19:40 | ED_ITS ---
HPI - URI/Sore Throat General Chief Complaint: Upper Respiratory Infection Stated Complaint: Strep Symptoms Time Seen by Provider: 05/31/24 19:39 Source: patient Mode of arrival: ambulatory Limitations: no limitations History of Present Illness HPI Narrative: Patient is a 48-year-old female who presents with sore throat, itchy eyes and congestion that started today. Patient has not taken anything for symptoms. Patient is also having right hip pain is chronic but having an acute exacerbation. Patient was last seen by pain management for steroid injection January 15. Denies any fever, chills, nausea, vomiting, diarrhea. Related Data Home Medications ?Medication ?Instructions ?Recorded ?Confirmed ?Last Taken ?Type mecobalamin (vitamin B12) 1,000 1,000 mcg PO DAILY 02/27/24 05/28/24 Unknown History mcg lozenges iron, carbonyl 45 mg tablet 54 mg PO DAILY 03/31/24 05/28/24 Unknown History Allergies Allergy/AdvReac Type Severity Reaction Status Date / Time Sulfa (Sulfonamide Allergy Intermediate Hives Verified 05/31/24 19:43 Antibiotics) lisinopril Allergy Mild Cough Verified 05/31/24 19:43 Review of Systems Review of Systems: All systems reviewed & are unremarkable except as noted in HPI and below Constitutional: Constitutional: Denies chills, Denies fatigue, Denies fever(s), Denies headache(s), Denies malaise and Denies weakness Eyes: Eyes: Denies blurry vision, Reports itchy eyes and Denies loss of vision ENT: Denies otalgia, Denies headache(s), Reports nasal congestion, Reports nasal discharge, Denies sinus pain and Denies sore throat Cardiovascular: Cardiovascular: Denies chest pain, Denies irregular heart rhythm and Denies dyspnea Respiratory: Respiratory: Reports cough and Denies dyspnea Gastrointestinal: Gastrointestinal: Denies abdominal pain, Denies diarrhea, Denies nausea and Denies vomiting Musculoskeletal: Musculoskeletal: Denies back pain, Denies myalgias and Denies arthralgias Integumentary/Breasts: Skin/Breast: Denies pruritus and Denies rash Neurologic: Denies headache(s), Denies loss of vision and Denies weakness Psychiatric: Psychiatric: Reports no additional psychiatric complaints Endocrine: Endocrine: Denies fatigue Allergic/Immunologic: Allergic/Immunologic: Denies itchy eyes PMFSH Past Medical History Medical History High triglycerides Body mass index (BMI) greater than 50 (08/20/18) Blood glucose abnormal COVID-19 Pre-op testing Pneumonia Urinary tract infection Hand, foot and mouth disease (HFMD) Sore throat Toenail torn away Abdominal pain Vaginal discharge Postoperative visit Malpositioned IUD Morbid obesity with BMI of 50.0-59.9, adult IUD surveillance Encounter for IUD insertion Hypercalcemia Hyperparathyroidism Vitamin D deficiency Exposure to COVID-19 virus Hospital discharge follow-up Abnormal uterine bleeding Smoker Metrorrhagia Discharge from nipple Osteoporosis Hypertriglyceridemia Hip pain Obesity Hidradenitis HPV (human papilloma virus) infection History of Hypothyroidism Migraines Depression Asthma Anxiety Anemia Surgical History Surgical History H/O breast surgery bilateral nipple duct removal. 09/22/21. H/O: hysterectomy 02/2021 H/O dilation and curettage History of incision and drainage Carbuncle from left armpit 2005 History of right hip replacement 2003 [place] teeth removed H/O tubal ligation H/O section X2 2006, 2009 Family History Family History Mother , not cause of Blood clot in vein Heart attack Lung cancer Hypertension COPD (chronic obstructive pulmonary disease) Depression Bipolar 1 disorder Grandparent , cause of Colon cancer Malignant neoplasm of prostate Grandparent Heart attack Hypertension Son Family history of attention deficit hyperactivity disorder (ADHD) PTSD (post-traumatic stress disorder) Asthma Daughter Asthma Social History Social History Social History: Caffeine-soda Years smoked: 24 Smoking status: Current every day smoker Tobacco type: cigarettes Second hand tobacco smoke exposure: No Alcohol intake: current Drinks per week: 1 Alcohol use details: occasional Substance use: never Substance use type: does not use Education: Grade School Difficulty w/ Childcare or Family Care: No Living arrangements: with family Gender identity (if verbalized by the patient): Female Spiritual care concerns: No Comments At time of signature, agree with nursing past medical, surgical, social and family history. There is no relevant family history pertinent to the presenting complaint. Exam Const: General: cooperative, healthy appearing, comfortable, no acute distress and well nourished Nutritional Appearance: well nourished Orientation/consciousness: patient oriented x3 Limitations: no limitations HENMT: Head: normal to inspection, normocephalic and atraumatic Ears: hearing grossly normal bilaterally, external ears normal, TM's normal bilaterally, EAC's normal and no periauricular adenopathy Face/Nose/Sinus: Normal external nose present, Abnormal mucous membranes and turbinates present erythematous bilateral and diffuse, normal facial exam, sinuses nontender and face symmetric Face and sinus: normal facial exam, sinuses nontender and face symmetric Mouth: Yes Normal oral and palatal mucosa present, Yes lip normal, Yes tongue normal, Yes Normal salivary glands and ducts present, Yes oropharynx normal and Yes moist mucous membranes Teeth and gingiva: dentition normal Throat: posterior oropharynx normal, tonsils normal and uvula midline Eyes: General: appearance normal, both eyes and all related structures Alignment and Position: alignment normal and position normal Periorbital: periorbital findings normal Eyelids: eyelids normal Pupils: Equal, round and reactive pupils present Neck: Neck: normal visual inspection, full ROM, no lymphadenopathy and supple Chest: Chest palpation & inspection: normal inspection of the chest and normal palpation of entire chest wall Resp: Effort & Inspection: normal respiratory effort and able to speak in complete sentences Auscultation: clear to auscultation bilaterally, no crackles, no rales, no rhonchi and no wheezes Cardio: Rate: regular rate Rhythm: regular rhythm Heart sounds: S1 normal heart sound present and S2 normal heart sound present GI: Inspection: normal to inspection Skin: General skin exam: normal color and no rashes or lesions noted Neuro: General: patient oriented x3 and moves all extremities Cranial nerves: Yes Equal, round and reactive pupils present Speech: normal speech Gait exam (Neuro): Normal gait present Extrem: General: normal to inspection, full ROM and no edema Right lower extremity: hip/thigh Details: tenderness Location: of the hip and abnormal ROM Details: pain with active ROM during; no ecchymosis, no deformity and no unusual warmth Psych: Appearance: grossly normal and well kempt Mental Status: mental status grossly normal Speech and movement: Normal speech and movement present Affect: normal affect Attitude: cooperative Thought process: Normal thought process present Course Course Emergency Course: Discharge instructions reviewed with patient, as well as provided in writing per nursing staff. The instructions also include specific and strict return/GO TO THE ER as well as f/u information. All questions have been answered, and the patient deny any further questions with discharge and discharge plan. Portions of this record may have been created with voice recognition software Level of Care: Express Care Visit Vital Signs Vital signs: Vital Signs Temperature 36.6 C 05/31/24 19:56 Pulse Rate 84 05/31/24 19:56 Respiratory Rate 16 05/31/24 19:56 Blood Pressure 118/62 05/31/24 19:56 Pulse Oximetry 100 05/31/24 19:56 Temperature 36.6 C 05/31/24 19:56 Pulse Rate 84 05/31/24 19:56 Respiratory Rate 16 05/31/24 19:56 Blood Pressure 118/62 05/31/24 19:56 Pulse Oximetry 100 05/31/24 19:56 Reviewed MDM - URI/Sore Throat MDM Narrative Medical decision making narrative: Discussed with patient the need to follow-up with pain management for further assessment of hip pain Pt well hydrated appearing, in no respiratory distress, hemodynamically stable. Recommend supportive care. The patient is stable at time of discharge the clinical impression was discussed and the patient was given the opportunity to ask questions, which were addressed as completely as possible given the information available at present. Anticipatory guidance and return to care precautions were discussed and the importance of primary care follow-up was stressed and encouraged. The patient voiced understanding of the plan, indications to return, and the need for follow-up. Differential diagnosis considered: Bronchitis, Peters virus, strep pharyngitis, allergic rhinitis, upper respiratory tract infection, sinusitis, rhinosinusitis, nasopharyngitis. viral pharyngitis, otitis media, otitis externa, otitis effusion, foreign body, cerumen impaction, viral syndrome, and influenza.? Exam findings show no acute concerns or changes; patient is non-toxic appearing and is in no distress.? Patient is appropriate for outpatient treatment and follow- up.? Differential Diagnosis Differential diagnosis: Likely other (Chronic hip pain, sciatica) Medical Records Attestation: I reviewed the patient's medical records. Lab Data Attestation: I reviewed the patient's lab results. Labs: Lab Results 05/31/24 05/31/24 Range/Units 20:01 20:06 POC Influenza A Ag Negative (Negative) POC Influenza B Ag Negative (Negative) POC SARS CoV-2 Ag Negative (Negative) POC Grp A Strep Screen Negative (Negative) Discharge Plan Discharge Clinical Impression: Hip pain, Upper respiratory infection Patient Disposition: Home, Self-Care Condition: Stable Instructions: Upper Respiratory Infection (ED) Additional Instructions: Take steroids in the morning with food for your hip pain Your rapid strep swab was negative today at [facility]. A throat culture will be sent to the laboratory for further testing. If the test is positive, you will receive a phone call within 48 hours and an appropriate antibiotic will be initiated at that time. Your Covid and flu are both negative Your symptoms are likely due to a viral illness, which is not treated with antibiotics. Viral symptoms can be present for up to a few weeks. -For pain/fever, you may take: Tylenol 650-1000mg by mouth every 4-6 hours. Do not exceed 4000mg in 24 hours. Advil (Ibuprofen) 600 mg by mouth every 6 hours. Do not exceed 2400mg in 24 hours. 8 AM: Tylenol 11 AM: Ibuprofen 2 PM: Tylenol 5 PM: Ibuprofen 8 PM: Tylenol 11 PM: Ibuprofen 2 AM: Tylenol 5 AM: Ibuprofen -Antihistamine medication such as Benadryl/Zyrtec at night and Claritin/Kimmie during the day can help improve symptoms. -Use Flonase twice a day for 5 days then daily to help reduce the inflammation and dry up your sinuses. -You can also use Sudafed behind the pharmacy counter(12 or 24 hour). Be sure to drink plenty of water with these medications at least 8 ounces with every dose and it is important to drink 8 to 10 glasses of water per day. Water is a natural decongestant -Eat and drink things that are easy to swallow, like tea or soup, or popsicles. -Oral rinses such as: Salt water gargles and/or may use topical anesthetic (eg. Chloraseptic spray) or lozenges to relieve dryness or throat pain). -Frequent hand washing or hand condominium manager is one of the best ways to prevent spread of infection. -Using a vaporizer or humidifier at night will also help thin secretions and help with coughing up phlegm. Call your Primary Care Doctor and make a follow-up appointment in 3 days. If your cough worsens, you develop a fever greater than 103, you develop shaking chills, a fast heartbeat, trouble breathing and/or feel you are are breathing much faster than usual, call your Primary Care Doctor or go to the ER. Patient Language: Citizen Of [place] Prescriptions: New prednisone 20 mg tablet 40 mg PO DAILY 5 Days Qty: 10 0RF fluticasone propionate [Flonase Allergy Relief] 50 mcg/actuation spray,suspension 1 spray intranasal DAILY Qty: 16 0RF Rx Instructions: administer into each nostril No Action (DME) Aerochamber MV Spacer See Rx Instructions .Route Qty: 1 0RF Rx Instructions: As directed tramadol 50 mg tablet 50 mg PO Q6H PRN (Reason: pain) Qty: 30 0RF mecobalamin (vitamin B12) 1,000 mcg lozenge 1,000 mcg PO DAILY Rx Instructions: allow to dissolve in mouth OR may chew lightly before swallowing iron, carbonyl 45 mg tablet 54 mg PO DAILY levothyroxine 150 mcg tablet 150 mcg PO DAILY Qty: 90 2RF duloxetine 60 mg capsule,delayed release(DR/EC) 120 mg PO DAILY Qty: 180 3RF folic acid 1 mg tablet 1 mg PO DAILY Qty: 20 0RF (DME) Heavy duty rollator with seat See Rx Instructions .Route .MEDSUPPLY Qty: 1 0RF Rx Instructions: Heavy duty rollator with seat and brakes (with seat that holds weights up to 350 lbs) amlodipine 10 mg tablet See Rx Instructions .ROUTE .COMPLEX Qty: 90 0RF Dose Instruction: TAKE 1 TABLET BY MOUTH DAILY Rx Instructions: TAKE 1 TABLET BY MOUTH DAILY cholecalciferol (vitamin D3) 1,250 mcg (50,000 unit) tablet 1,250 mcg PO WEEKLY Qty: 14 1RF Follow-up/Referrals: UNKNOWN,DOCTOR [Non-Staff] - Time of Disposition: 20:11
[2024-05-31 19:56] VITALS: BP 118/62; PULSE 84; RESP 16; TEMP 36.6; O2SAT 100
[2024-05-31 20:03] LABS: EDSTREPNEGPOS1 Negative (Negative)
[2024-05-31 20:08] LABS: EDCOVIDSCREEN Negative (Negative); EDINFLUASCREEN Negative (Negative); EDINFLUBSCREEN Negative (Negative)
== END 2024-05-31 20:12 | disposition home or self-care (01) ==
PROVIDERS: Emergency Provider Nurse Practitioner Family
DX: J06.9 Acute upper respiratory infection, unspecified (principal); M25.551 Pain in right hip; Z20.822 Contact with and (suspected) exposure to COVID-19; F17.210 Nicotine dependence, cigarettes, uncomplicated; E66.01 Morbid (severe) obesity due to excess calories; Z68.42 Body mass index [BMI] 45.0-49.9, adult; E21.3 Hyperparathyroidism, unspecified; E55.9 Vitamin D deficiency, unspecified; M81.0 Age-related osteoporosis without current pathological fracture; E78.1 Pure hyperglyceridemia; E03.9 Hypothyroidism, unspecified; J45.909 Unspecified asthma, uncomplicated; D64.9 Anemia, unspecified; Z86.16 Personal history of COVID-19
CPT/HCPCS: 87081; 87426; 87804; 87880; 99213; G0463

== ENCOUNTER 2024-08-20 14:40 | Outpatient (CLI) | payer BC, SELFPAY ==
--- NOTE | ~2024-08-20 | XR_ITS ---
Left foot Technique: AP and lateral views were obtained. Clinical History: Injury Findings: No acute fracture or dislocation is seen. Osseous alignment is anatomic. Joint spaces are p reserved without erosive or degenerative change. Soft tissues are unremarkable. Impression: Unremarkable left foot radiographs. Reviewed, dictated and finalized at [facility]. Impression: Unremarkable left foot radiographs.
--- NOTE | ~2024-08-20 | XR_ITS ---
Left ankle Technique: AP and lateral views were obtained. Clinical History: Injury Findings: No acute fracture or dislocation is seen. Osseous alignment is anatomic. Ankle mortise and other visualized joint spaces are preserved. Soft tissues are otherwise unremarkable. Impression: Unremarkable left ankle. Reviewed, dictated and finalized at location . Impression: Unremarkable left ankle.
== END 2024-08-20 14:41 | disposition home or self-care (01) ==
PROVIDERS: PCP Clinical Nurse Specialist; Visit Provider Clinical Nurse Specialist
DX: S99.922A Unspecified injury of left foot, initial encounter (principal); S99.912A Unspecified injury of left ankle, initial encounter; X58.XXXA Exposure to other specified factors, initial encounter
CPT/HCPCS: 73600; 73620

== ENCOUNTER 2024-12-24 07:55 | Outpatient (CLI) | payer BC, SELFPAY ==
[2025-01-12 16:48] VITALS: BMI 52.0
--- NOTE | 2025-01-12 16:48 | P.SLEEP_ITS ---
Sleep Study - Home Unattended Date of Study: 12/17/24 Ordering Provider: Rosa Galvez APRN Interpreting Provider: Jocy Perera, DO Home Sleep Study Type: Watch PAT Height: 1.63 m Weight: 137.438 kg Body Mass Index: 52.0 Neck Circumference (inches): 18 [place]: 5 Reason for Sleep Study Loud snoring, trouble falling and staying asleep Sleep History The patient is a 49-year-old female that had a sleep study ordered by her primary care for evaluation of sleep apnea. The patient admits to snoring loudly, interruptions in breathing while asleep, trouble falling asleep and trouble staying asleep. She does have interruptions in breathing while asleep. She denies choking or gasping at night. She does have trouble breathing on her back. She does have morning headaches. She denies having a dry or sore mouth / throat in the morning. She denies nocturnal heartburn. Urinates more than 3 times per night. She does have difficulty returning to sleep if she wakes up throughout the night. She denies any hypnotic or sedative use. She denies feeling anxious about sleep. She does feel tired or sleepy during the day. She does feel tired in the morning. She does have urge to fall asleep during the day. She denies feeling drowsy while driving. She denies sleep paralysis, cataplexy and hypnagogic/ hypnopompic hallucinations. She denies clenching or grinding her teeth. She denies kicking or jerking her legs excessively. She does have a restless feeling in her legs that causes an urge to move her legs. It gets worse with rest and better with activity. It is present mostly in the evening or at night time. It does not cause a disturbance in her sleep. She goes to bed at 10:00 p.m. on work days and at midnight on her days off. It takes her 30 minutes to fall asleep on work days and 2 hours on her days off. She gets 5 hours of sleep on work days and 7 hours on her days. Her sleep is not restorative on her days off. She denies taking any planned naps. She denies dream enactment behavior. She denies sleep walking. She consumes 1-2 cups of caffeinated beverage per day. She smokes 6-20 cigarettes per day. She consumes 2 alcoholic beverages 3-4 nights per week. She does not exercise on regular basis. [facility] Past Medical History Medical History Screening-pulmonary TB Abscess Foot injury High triglycerides Body mass index (BMI) greater than 50 (08/20/18) Blood glucose abnormal COVID-19 Pre-op testing Pneumonia Urinary tract infection Hand, foot and mouth disease (HFMD) Sore throat Toenail torn away Abdominal pain Vaginal discharge Postoperative visit Malpositioned IUD Morbid obesity with BMI of 50.0-59.9, adult IUD surveillance Encounter for IUD insertion Hypercalcemia Hyperparathyroidism Vitamin D deficiency Exposure to COVID-19 virus Hospital discharge follow-up Abnormal uterine bleeding Smoker Metrorrhagia Discharge from nipple Osteoporosis Hypertriglyceridemia Hip pain Obesity Hidradenitis HPV (human papilloma virus) infection History of Hypothyroidism Migraines Depression Asthma Anxiety Anemia Surgical History Surgical History H/O breast surgery bilateral nipple duct removal. 09/22/21. H/O: hysterectomy 02/2021 H/O dilation and curettage History of incision and drainage Carbuncle from left armpit 2005 History of right hip replacement 2004 [place] teeth removed H/O tubal ligation H/O section X2 2006, 2009 Family History Family History Mother , not cause of Blood clot in vein Heart attack Lung cancer Hypertension COPD (chronic obstructive pulmonary disease) Depression Bipolar 1 disorder Grandparent , cause of Colon cancer Malignant neoplasm of prostate Grandparent Heart attack Hypertension Son Family history of attention deficit hyperactivity disorder (ADHD) PTSD (post-traumatic stress disorder) Asthma Daughter Asthma Social History Social History Social History: Caffeine-soda Years smoked: 24 Smoking status: Current every day smoker Tobacco type: cigarettes Second hand tobacco smoke exposure: No Alcohol intake: current Drinks per week: 1 Alcohol use details: occasional Substance use: never Substance use type: does not use Education: Grade School Difficulty w/ Childcare or Family Care: No Living arrangements: with family Gender identity (if verbalized by the patient): Female Spiritual care concerns: No Medications Home Medications ?Medication ?Instructions ?Recorded ?Confirmed ?Type inhalational spacing device #1 ea 12/30/22 11/12/24 Rx (Aerochamber MV spacer) Heavy duty rollator with seat #1 ea 02/04/23 11/12/24 Rx calcium 500 mg-vitamin D3 1,000 1 tablet PO BID #180 t abs 09/08/24 11/12/24 Rx unit-vitamin K 40 mcg chewable tablet (Citracal-D3 Soft Chew) Heavy Duty Rollator with seat #1 ea 09/10/24 11/12/24 Rx amlodipine 10 mg tablet See Rx Instructions .Route 0 10/02/24 11/12/24 Rx .COMPLEX #90 tabs cholecalciferol (vitamin D3) 1,250 1,250 mcg PO WEEKLY #14 tabs 10/27/24 11/12/24 Rx mcg (50,000 unit) tablet duloxetine 60 mg capsule,delayed 120 mg (2 x 60 mg) PO DAILY #180 11/23/24 Rx release caps levothyroxine 150 mcg tablet See Rx Instructions .Rout e 11/27/24 Rx .COMPLEX #90 tabs albuterol sulfate 90 mcg/actuation 2 puff inhalation Q ID PRN 12/27/24 Rx aerosol inhaler shortness of breath or wheez ing #8.5 grams doxycycline monohydrate 100 mg 100 mg PO BID 7 days #1 4 tabs 12/27/24 Rx tablet inhalational spacing device #1 ea 12/27/24 Rx (BreatheRite Valved MDI Chamber spacer) prednisone 20 mg tablet 40 mg (2 x 20 mg) PO DAILY 5 days 12/27/24 Rx #10 tabs Sleep Procedure The sleep study was completed using [employer]EvidenceT a technically adequate device with seven channels: peripheral arterial tone, actigraphy, body position, snore, respiratory movement, pulse oximetry, sleep staging, and heart rate. Prior to using the device, the patient received verbal and written instructions for its application and was provided with the [employer] desk phone number for additional telephonic instruction with 24-hour availability of qualified personnel to answer questions. The study was scored using CMS guidelines. Sleep Architecture The total recording time is 8 hrs, 17 min. The total sleep time is 4 hrs, 53 min. Sleep latency is 18 minutes. REM latency is 431 minutes. The patient had 24 episodes of waking. Sleep architecture shows 19.4% deep sleep, 73.0% light sleep , and (as % Total Sleep Time) showed NREM (Light 73.0%; Deep 19.4%), and a 7.6% stage REM. The patient spent 8.0% of total sleep time in the supine position. Sleep efficiency was 58.95. Respiratory Analysis The overall AHI (pAHI 4%:) is 10.1. The overall AHI (pAHI 3%:) is 16.8. The central AHI is 1.9. The AHI was N/A in NREM and N/A in REM sleep. The AHI was 15.4 in Supine and 16.7 in Non-supine sleep. Percent of Marcial Gillis respirations is 0.0. Oximetry Data The oxygen desaturation index (NICK 4%:) is 6.6. The mean saturation is 94%, and the lowest saturation is 84%. Time spent with saturation < 88% is 0.5 minutes. Snoring Profile Snoring average intensity is 41 dB. The patient snored above 45 decibels for 21.7 minutes, 7.4% of sleep time. Cardiac Profile The average pulse rate is 88 beats per minutes. The lowest pulse rate is 68 bpm. The highest pulse rate reported is 99 bpm. Atrial fibrillation was not detected. Premature beats occur <0.1 per minute. Assessment and Plan Assessment and Plan (1) HAILEY (obstructive sleep apnea): Code(s): G47.33 - Obstructive sleep apnea (adult) (pediatric) Status: Acute Assessment and Plan: The patient had an overall AHI of 10.1 with desaturation down to 84%. This is consistent with mild sleep apnea. Due to the patient's hypertension, she qualifies for treatment. I recommend that the patient be prescribed AutoPAP 5-15 cm H2O, CPAP mask/filters/tubing and heated humidity. A mandibular advancement device is also an acceptable treatment option. This should be used with all episodes of sleep.? Compliance should be reviewed within 31-90 days of starting therapy for usage greater than 4 hours per night greater than 70% of the nights. The patient should be asked about symptoms such as?excessive daytime sleepiness, quality of sleep, decreased nocturia, increased?mental functioning such as memory, mood, and concentration. The patient's sleep history is highly suggestive of Restless Leg Syndrome. I recommend that the patient have a serum ferritin drawn for evaluation of iron deficiency anemia. If the patient has a serum ferritin less than 75 ng/mL, I recommend starting a daily iron supplement and a Vitamin C supplement for better absorption. If the serum ferritin is greater than 75 ng/mL, I recommend starting a dopamine agonist and titrating the dose until symptoms resolve. There are nonpharmacological methods to treat limb movements including daily exercise, stretching calf muscles before bed, avoiding excessive amounts of caffeine and alcohol, vitamin B supplementation, magnesium lotion massaged into legs before bed, and use of a weighted blanket. Data The data obtained during this sleep study is adequate for interpretation. Certification This sleep study has been reviewed by a board certified sleep medicine physician.
== END 2024-12-25 13:16 | disposition home or self-care (01) ==
PROVIDERS: PCP Internal Medicine; Visit Provider Clinical Nurse Specialist
DX: G47.10 Hypersomnia, unspecified (principal); G47.33 Obstructive sleep apnea (adult) (pediatric)
CPT/HCPCS: 95800

== ENCOUNTER 2024-12-27 19:42 | Emergency (ER) | payer BC, SELFPAY ==
[2024-12-27 19:59] VITALS: BP 120/90; PULSE 89; RESP 16; TEMP 36.7; O2SAT 100
--- NOTE | 2024-12-27 20:05 | ED_ITS ---
HPI - URI/Sore Throat General Chief Complaint: Upper Respiratory Infection Stated Complaint: Flu Symptoms Time Seen by Provider: 12/27/24 20:08 Source: patient and RN notes reviewed Mode of arrival: ambulatory Limitations: no limitations History of Present Illness HPI Narrative: 49-year-old female presents concern for 4 day history cough, chest congestion, chest tightness and wheezing. She reports runny nose, stuffy nose, fever, body aches, chills, sweats. She has been taking [id number] medications without relief. MD elicited complaint: cough and nasal congestion Related Data Allergies Allergy/AdvReac Type Severity Reaction Status Date / Time Sulfa (Sulfonamide Allergy Intermediate Hives Verified 12/27/24 19:50 Antibiotics) lisinopril Allergy Mild Cough Verified 12/27/24 19:50 Review of Systems Review of Systems: CONSTITUTIONAL: Reports malaise, chills, sweats, fever. EYES: Denies visual changes, redness, or discharge. ENT: Reports rhinorrhea, congestion CARDIOVASCULAR: Denies chest pain, palpitations, or edema. RESPIRATORY: Reports cough, wheezing, dyspnea. GASTROINTESTINAL: Denies abdominal pain, nausea, vomiting, diarrhea SKIN: Denies rash or itching. MUSCULOSKELETAL: Reports myalgia. NEUROLOGIC: Reports headache. All systems reviewed & are unremarkable except as noted in HPI and below PMFSH Past Medical History Medical History (Updated 12/27/24 @ 20:16 by Peggy Osman NP) Screening-pulmonary TB Abscess Foot injury High triglycerides Body mass index (BMI) greater than 50 (08/20/18) Blood glucose abnormal COVID-19 Pre-op testing Pneumonia Urinary tract infection Hand, foot and mouth disease (HFMD) Sore throat Toenail torn away Abdominal pain Vaginal discharge Postoperative visit Malpositioned IUD Morbid obesity with BMI of 50.0-59.9, adult IUD surveillance Encounter for IUD insertion Hypercalcemia Hyperparathyroidism Vitamin D deficiency Exposure to COVID-19 virus Hospital discharge follow-up Abnormal uterine bleeding Smoker Metrorrhagia Discharge from nipple Osteoporosis Hypertriglyceridemia Hip pain Obesity Hidradenitis HPV (human papilloma virus) infection History of Hypothyroidism Migraines Depression Asthma Anxiety Anemia Surgical History Surgical History H/O breast surgery bilateral nipple duct removal. 09/22/21. H/O: hysterectomy 02/2021 H/O dilation and curettage History of incision and drainage Carbuncle from left armpit 2005 History of right hip replacement 2003 [place] teeth removed H/O tubal ligation H/O section X2 2006, 2009 Family History Family History Mother , not cause of Blood clot in vein Heart attack Lung cancer Hypertension COPD (chronic obstructive pulmonary disease) Depression Bipolar 1 disorder Grandparent , cause of Colon cancer Malignant neoplasm of prostate Grandparent Heart attack Hypertension Son Family history of attention deficit hyperactivity disorder (ADHD) PTSD (post-traumatic stress disorder) Asthma Daughter Asthma Social History Social History Social History: Caffeine-soda Years smoked: 24 Smoking status: Current every day smoker Tobacco type: cigarettes Second hand tobacco smoke exposure: No Alcohol intake: current Drinks per week: 1 Alcohol use details: occasional Substance use: never Substance use type: does not use Education: Grade School Difficulty w/ Childcare or Family Care: No Living arrangements: with family Gender identity (if verbalized by the patient): Female Spiritual care concerns: No Comments At time of signature, agree with nursing past medical, surgical, social and family history. There is no relevant family history pertinent to the presenting complaint Exam Narrative: GENERAL: Well-appearing, well-nourished, and in no acute distress. HEAD: Normocephalic EYES: PERRLA, conjunctivae clear ENT: Nares clear. Mucous membranes moist. TM pearly carey with dull light reflex bilaterally; no tragal tenderness. Oropharynx not erythematous without lesions. Tonsils not enlarged and without exudate, no drooling, no hoarseness, no trismus, uvula midline. NECK: Supple. No lymphadenopathy CHEST: Rhonchi and wheezing scattered, breath sounds equal. No rales, or stridor. No respiratory distress, speaks in full sentences. HEART: Regular rate and rhythm. No murmur heard. SKIN: Warm, dry, no rash. NEURO: Alert and oriented x3. PSYCH: Normal mood and affect Course Course Emergency Course: Patient is aware of diagnosis, understands and agrees to treatment plan. Anticipatory guidance given. Patient agrees to follow-up as directed and is aware of reasons to seek care at the emergency department. Portions of this record may have been created with voice recognition software Level of Care: Express Care Visit Vital Signs Vital signs: Vital Signs Temperature 98.1 F 12/27/24 19:59 Pulse Rate 89 12/27/24 19:59 Respiratory Rate 16 12/27/24 19:59 Blood Pressure 120/90 12/27/24 19:59 Pulse Oximetry 100 12/27/24 19:59 Temperature 98.1 F 12/27/24 19:59 Pulse Rate 89 12/27/24 19:59 Respiratory Rate 16 12/27/24 19:59 Blood Pressure 120/90 12/27/24 19:59 Pulse Oximetry 100 12/27/24 19:59 Reviewed. MDM - URI/Sore Throat MDM Narrative Medical decision making narrative: Differential diagnosis considered: Peters virus, strep pharyngitis, allergic rhinitis, upper respiratory tract infection, sinusitis, rhinosinusitis, nasopharyngitis. viral pharyngitis, otitis media, otitis externa, pneumonia, bronchitis, viral cough syndrome, viral syndrome, and influenza. Exam findings show no acute concerns or changes; patient is non-toxic appearing and is in no distress. Patient is appropriate for outpatient treatment and follow-up. Lab Data Attestation: I reviewed the patient's lab results. Critical Care Time Critical Care Time Critical Care Time: No Discharge Plan Discharge Clinical Impression: Sinobronchitis Patient Disposition: Home Condition: Stable Instructions: Antibiotic Form, Acute Bronchitis (ED) Additional Instructions: Take medications as prescribed Recommend antihistamine such as Benadryl at night time and Zyrtec or Kimmie during the day Use inhaler as needed for cough, wheezing, shortness of breath or chest tigh tness. Also, recommend symptomatic treatment includes: rest, fluids, and increase humidity of the air at home. Recommend Acetaminophen as directed on the bottle to reduce fever, pain, headache. Avoid smoking/second-hand smoke. Please schedule a follow-up visit with your personal physician for further evaluation and treatment within 3-5days. If your symptoms persist, change or worsen significantly before you can contact your personal physician then please, without delay, go to the emergency department for further evaluation. Patient Language: [place] Prescriptions: New prednisone 20 mg tablet 40 mg PO DAILY 5 Days Qty: 10 0RF doxycycline monohydrate 100 mg tablet 100 mg PO BID 7 Days Qty: 14 0RF albuterol sulfate 90 mcg/actuation HFA aerosol inhaler 2 puff INHALATION QID PRN (Reason: shortness of breath or wheezing) Qty: 8.5 0RF (DME) BreatheRite Valved MDI Chamber Spacer See Rx Instructions .Route Qty: 1 0RF Rx Instructions: As directed No Action (DME) Aerochamber MV Spacer See Rx Instructions .Route Qty: 1 0RF Rx Instructions: As directed calcium-vitamin D3-vitamin K [Citracal-D3 Soft Chew] 500 mg-1,000 unit-40 mcg tablet,chewable 1 tablet PO BID Qty: 180 2RF Rx Instructions: take one tablet with lunch and one tablet with dinner (DME) Heavy duty rollator with seat See Rx Instructions .Route .MEDSUPPLY Qty: 1 0RF Rx Instructions: Heavy duty rollator with seat and brakes (with seat that holds weights up to 350 lbs) (DME) Heavy Duty Rollator with seat See Rx Instructions .Route .MEDSUPPLY Qty: 1 0RF Rx Instructions: Heavy duty rollator with seat and brakes (with seat that holds weights up to 350 lbs) amlodipine 10 mg tablet See Rx Instructions .ROUTE .COMPLEX Qty: 90 1RF Dose Instruction: TAKE 1 TABLET BY MOUTH DAILY Rx Instructions: TAKE 1 TABLET BY MOUTH DAILY cholecalciferol (vitamin D3) 1,250 mcg (50,000 unit) tablet 1,250 mcg PO WEEKLY Qty: 14 1RF duloxetine 60 mg capsule,delayed release(DR/EC) 120 mg PO DAILY Qty: 180 1RF levothyroxine 150 mcg tablet See Rx Instructions .ROUTE .COMPLEX Qty: 90 2RF Dose Instruction: TAKE 1 TABLET BY MOUTH DAILY Rx Instructions: TAKE 1 TABLET BY MOUTH DAILY Follow-up/Referrals: PHYSICIAN,DENTAL HYGIENIST [Primary Care Provider, Internal Medicine] Stand Alone Forms: Work/School Release IP Time of Disposition: 20:17
[2024-12-27 20:11] LABS: EDCOVIDSCREEN Negative (Negative); EDINFLUASCREEN Negative (Negative); EDINFLUBSCREEN Negative (Negative)
== END 2024-12-27 20:20 | disposition home or self-care (01) ==
PROVIDERS: Emergency Provider Nurse Practitioner
DX: J32.9 Chronic sinusitis, unspecified (principal); J40 Bronchitis, not specified as acute or chronic; Z20.822 Contact with and (suspected) exposure to COVID-19; F17.210 Nicotine dependence, cigarettes, uncomplicated; E66.01 Morbid (severe) obesity due to excess calories; Z68.43 Body mass index [BMI] 50.0-59.9, adult; E21.3 Hyperparathyroidism, unspecified; E55.9 Vitamin D deficiency, unspecified; E78.1 Pure hyperglyceridemia; E03.9 Hypothyroidism, unspecified; J45.909 Unspecified asthma, uncomplicated; Z86.16 Personal history of COVID-19
CPT/HCPCS: 87426; 87804; 99213; G0463